=== PATIENT | female | born 1950 | race African-American/Black ===

== ENCOUNTER 2016-07-04 14:32 | Observation (INO) | payer MEDICARE, OTHER ==
--- NOTE | 2016-07-04 14:38 | ER Document Report ---
ED Medical Screen (RME) - General Stated Complaint: ABDOMINAL PAIN Notes: 65 yo female with hx/o distal esophogeal cancer, COPD, HTN, GERD, Cirrhosis c/o acute onset upper abdominal pain x several hours. pain started after chemo today. + vomiting. no fever TRAVEL OUTSIDE OF THE [place] IN LAST 30 DAYS: No - Related Data Allergies/Adverse Reactions: hydrocodone Allergy (Severe, Verified 04/10/16 11:44) Pruritis oxycodone Allergy (Intermediate, Verified 04/10/16 11:44) Hallucinations codeine [Codeine] Allergy (Unknown, Verified 09/08/12 16:17) Pruritis Past Medical History - Past Medical History Cardiac Medical History: Reports: Hx Congestive Heart Failure - chronic diastolic with moderate mr and Pht 5y ago, Hx Hypertension Denies: Hx Coronary Artery Disease, Hx Heart Attack Pulmonary Medical History: Reports: Hx Bronchitis, Hx COPD, Hx Intubation - 2010 respiratory arrest. November fev1=50%. Cant afford spiriva, Hx Respiratory Failure Denies: Hx Asthma, Hx Pneumonia, Hx Tuberculosis Neurological Medical History: Denies: Hx Cerebrovascular Accident, Hx Seizures GI Medical History: Reports: Hx Cirrhosis, Hx Gastroesophageal Reflux Disease Musculoskeltal Medical History: Denies Hx Arthritis Past Surgical History: Reports: Hx Cholecystectomy, Hx Herniorrhaphy, Hx Hysterectomy. Denies: Hx Pacemaker - Immunizations Hx Diphtheria, Pertussis, Tetanus Vaccination: Yes
[2016-07-04] MEDS ORDERED: ONDANSETRON 4 MG TAB.RAPDIS PO ONE (14:44)
[2016-07-04 15:07] LABS: ABSOLUTE LYMPHOCYTES (AUTO) 0.2 10^3/uL (0.5-4.7); ABSOLUTE MONOCYTES (AUTO) 0.1 10^3/uL (0.1-1.4); ABSOLUTE NEUT (AUTO) 2.9 10^3/uL (1.7-8.2); BASOPHILS % (AUTO) 0.6 % (0-2); HEMATOCRIT 32.9 % (36.0-47.0); HEMOGLOBIN 11.4 g/dL (12.0-15.5); HGB HCT DIFFERENCE 1.3; LYMPHOCYTES % (AUTO) 6.6 % (13-45); MEAN CORPUSCULAR HEMOGLOBIN 34.1 pg (27.0-33.4); MEAN CORPUSCULAR HGB CONC 34.7 g/dL (32.0-36.0); MEAN CORPUSCULAR VOLUME 98 fl (80-97); MONOCYTES % (AUTO) 1.6 % (3-13); RED BLOOD COUNT 3.34 10^6/uL (3.72-5.28); RED CELL DISTRIBUTION WIDTH 20.7 % (11.5-14.0); SEGMENTED NEUTROPHILS % (AUTO) 91.2 % (42-78); WHITE BLOOD COUNT 3.2 10^3/uL (4.0-10.5)
[2016-07-04 15:24] LABS: ALANINE AMINOTRANSFERASE 27 U/L (9-52); ALBUMIN 4.2 g/dL (3.5-5.0); ALKALINE PHOSPHATASE 122 U/L (38-126); ANION GAP 14 (5-19); ASPARTATE AMINO TRANSFERASE 27 U/L (14-36); BILIRUBIN,TOTAL 0.8 mg/dL (0.2-1.3); BLOOD UREA NITROGEN 15 mg/dL (7-20); CALCIUM 10.1 mg/dL (8.4-10.2); CARBON DIOXIDE 21 mmol/L (22-30); CHLORIDE 106 mmol/L (98-107); CREATININE RESULT 0.71 mg/dL (0.52-1.25); GLUCOSE 187 mg/dL (75-110); LIPASE 90.7 U/L (23-300); POTASSIUM 3.3 mmol/L (3.6-5.0); SODIUM 140.5 mmol/L (137-145); TOTAL PROTEIN 7.4 g/dL (6.3-8.2)
[2016-07-04] MEDS ORDERED: HYDROMORPHONE HCL INJ/PF 2 MG/ML AMPULE IV ONE ×3 (15:50→21:24)
[2016-07-04] MEDS ORDERED: FENTANYL CITRATE INJ/PF 100 MCG/2 ML AMPUL IV ONE ×2 (15:51→18:33)
--- NOTE | 2016-07-04 15:57 | ER Document Report ---
ED GI/ - General Chief Complaint: Abdominal Pain Stated Complaint: ABDOMINAL PAIN Notes: This is a 65-year-old female history of esophageal cancer and cirrhosis who presents complaining of acute abdominal pain which began after receiving chemotherapy today (Taxol and Carboplatan). Last radiation several weeks ago. She complains of severe diffuse abdominal pain associated with nausea and gagging/spitting. No bilious emesis. She did not have a bowel movement today. She denies any dysuria. No fever. She has not had pain like this following chemotherapy in the past. TRAVEL OUTSIDE OF THE [place] IN LAST 30 DAYS: No - Related Data Allergies/Adverse Reactions: hydrocodone Allergy (Severe, Verified 07/04/16 14:40) Pruritis oxycodone Allergy (Intermediate, Verified 07/04/16 14:40) Hallucinations codeine [Codeine] Allergy (Unknown, Verified 07/04/16 14:40) Pruritis Past Medical History - General Information source: Patient, Relative - Social History Smoking Status: Former Smoker Frequency of alcohol use: former Drug Abuse: None Lives with: Spouse/Significant other Family History: Malignancy - prostate brother Patient has suicidal ideation: No Patient has homicidal ideation: No - Past Medical History Cardiac Medical History: Reports: Hx Congestive Heart Failure - chronic diastolic with moderate mr and Pht 5y ago, Hx Hypertension Denies: Hx Coronary Artery Disease, Hx Heart Attack Pulmonary Medical History: Reports: Hx Bronchitis, Hx COPD, Hx Intubation - 2010 respiratory arrest. November fev1=50%. Cant afford spiriva, Hx Respiratory Failure Denies: Hx Asthma, Hx Pneumonia, Hx Tuberculosis Neurological Medical History: Denies: Hx Cerebrovascular Accident, Hx Seizures Renal/ Medical History: Denies: Hx Peritoneal Dialysis GI Medical History: Reports: Hx Cirrhosis, Hx Gastroesophageal Reflux Disease Musculoskeltal Medical History: Denies Hx Arthritis Past Surgical History: Reports: Hx Cholecystectomy, Hx Herniorrhaphy, Hx Hysterectomy. Denies: Hx Pacemaker - Immunizations Hx Diphtheria, Pertussis, Tetanus Vaccination: Yes Hx Pneumococcal Vaccination: 05/20/12 Review of Systems - Review of Systems Constitutional: denies: Fever EENT: Difficulty swallowing Cardiovascular: denies: Syncope Respiratory: denies: Short of breath Gastrointestinal: Abdominal pain, Vomiting Genitourinary: denies: Burning Musculoskeletal: denies: Leg swelling Skin: denies: Rash Neurological/Psychological: denies: Numbness, Tingling Physical Exam - Vital signs Vitals: Temp Pulse Resp BP Pulse Ox 97.3 F 90 22 H 141/85 H 100 07/04/16 14:39 07/04/16 14:39 07/04/16 14:39 07/04/16 14:39 07/04/16 14:39 - General General appearance: Alert In distress: Moderate Notes: writhing and hyperventilating - HEENT Head: Normocephalic Pupils: Pinpoint Mouth/Lips: Normal Pharynx: Normal Neck: Normal - Respiratory Respiratory status: Tachypnea Breath sounds: Normal - Cardiovascular Rhythm: Regular - Abdominal Inspection: Normal, Other - J-tube in place Distension: Other - mild distrention Tenderness: Other - mild diffuse tenderness, no peritoneal signs Organomegaly: No organomegaly - Back Back: Normal - Extremities General upper extremity: Normal inspection General lower extremity: Normal inspection - Neurological Orientation: AAOx4 Motor strength normal: LUE, RUE, LLE, RLE - Psychological Associated symptoms: Anxious - Skin Skin Temperature: Warm Skin Moisture: Dry Skin Color: Normal Course - Re-evaluation Re-evalutation: 07/04/16 21:[address] Norton who will follow along in consult. He suggests that we put J- tube to gravity drain and that pt may benefit from a higher level of care if surgery becomes required. He cautions against passing a NG tube unless radiograpically guided because of tumor, recent radiation. 07/04/16 21:[address] Mclean who states pt's cancer is contained and she initially refused surgery in hopes of a cure from chemo and radiation. She had Carboplatan and Taxol today which she has received several times before and should not have any bowel toxicity, etc. 07/04/16 21:[address] Yancey who will admit pt. Requests surgical consult. 07/04/16 21:[address] Norton who will provide pt. Pt to be admitted to medical floor by Cristofer. - Vital Signs Vital signs: Temp Pulse Resp BP Pulse Ox 97.5 F 98 14 124/70 99 07/04/16 20:30 07/04/16 20:30 07/04/16 20:30 07/04/16 20:30 07/04/16 20:30 - Laboratory Result Diagrams: 07/04/16 14:45 07/04/16 14:45 Laboratory results interpreted by me: 07/04/16 07/04/16 07/04/16 14:45 14:45 16:45 WBC 3.2 L RBC 3.34 L Hgb 11.4 L Hct 32.9 L MCV 98 H MCH 34.1 H RDW 20.7 H Plt Count 130 L Seg Neutrophils % 91.2 H Lymphocytes % 6.6 L Monocytes % 1.6 L Absolute Lymphocytes 0.2 L Potassium 3.3 L Carbon Dioxide 21 L Glucose 187 H Urine Glucose (UA) 150 H Urine Ketones TRACE H Urine Ascorbic Acid 20 H Discharge - Discharge Clinical Impression: Small bowel obstruction Esophageal cancer Qualifiers: Malignant neoplasm of esophagus location: unspecified location Qualified Code(s ): C15.9 - Malignant neoplasm of esophagus, unspecified Condition: Stable Disposition: ADMITTED INPATIENT Admitting Provider: Cristofer Referrals: OSEAS YANCEY MD [Primary Care Provider] - Follow up as needed
[2016-07-04 16:56] LABS: APPEARANCE,URINE CLEAR; BILIRUBIN,URINE NEGATIVE (NEGATIVE); GLUCOSE, URINE 150 mg/dL (NEGATIVE); KETONES,URINE TRACE mg/dL (NEGATIVE); LEUKOCYTE ESTERASE,URINE NEGATIVE (NEGATIVE); NITRITE,URINE NEGATIVE (NEGATIVE); PROTEIN,URINE NEGATIVE (NEGATIVE); URINE SPECIFIC GRAVITY 1.013; UROBILINOGEN,URINE NEGATIVE mg/dL (<2.0)
[2016-07-04] MEDS ORDERED: DIPHENHYDRAMINE HCL 50 MG/ML VIAL IV ONE (19:16)
[2016-07-05] MEDS: POTASSI CL 20 MEQ/1/2NS 1L 1000 ML IV PRN ×2 (02:23→22:14)
[2016-07-05] MEDS ORDERED: HYDROMORPHONE HCL INJ/PF 2 MG/ML AMPULE ONE (02:38)
[2016-07-05] MEDS ORDERED: HYDROMORPHONE HCL INJ/PF 2 MG/ML AMPULE IV PRN (03:54)
[2016-07-05] MEDS ORDERED: POTASSI CL 20 MEQ/1/2NS 1L 1000 ML IV PRN (03:55)
[2016-07-05] MEDS ORDERED: ENOXAPARIN SODIUM INJ 40 MG/0.4 ML DISP.SYRIN SUBCUT SCH (08:00)
--- NOTE | 2016-07-05 08:24 | PDOC H&P ---
History of Present Illness Admission Date/PCP: 07/05/16 05:05 OSEAS YANCEY MD Patient complains of: 11am L periumbilical pain & vomiting twice History of Present Illness: RUDY OGNZALES is a 65 year old female December ca esophagus. Just chemo radiation. Pain started at chemo:[place] & taxol. J tube to gravity. Early this am big stool. Pain gone. Past Medical History Cardiac Medical History: Reports: Congestive Heart Failure - chronic diastolic with moderate mr and Pht 5y ago, Hypertension Denies: Coronary Artery Disease, Myocardial Infarction Pulmonary Medical History: Reports: Bronchitis, Chronic Obstructive Pulmonary Disease (COPD), Intubation - 2010 respiratory arrest. November fev1=50%. Cant afford spiriva, Respiratory Failure Denies: Asthma, Pneumonia, Tuberculosis EENT Medical History: Reports: None Neurological Medical History: Reports: None Denies: Seizures Endocrine Medical History: Reports: None Renal/ Medical History: Reports: None GI Medical History: Reports: Cirrhosis, Gastroesophageal Reflux Disease, Hepatitis - alcoholic, Peptic Ulcer Disease Musculoskeltal Medical History: Denies: Arthritis Psychiatric Medical History: Reports: Alcohol Dependency Traumatic Medical History: Reports: None Hematology: Reports: Anemia Infectious Medical History: Reports: None Past Surgical History Past Surgical History: Reports: Cholecystectomy, Herniorrhaphy, Hysterectomy, Other - jejunostomy Denies: Pacemaker Social History Information Source: Dr. Pierre Lives with: Spouse/Significant other Smoking Status: Current Some Day Smoker Cigarettes Packs Per Day: 1 Number of Years Smokin Last Time Smoked: 06/28/16 Frequency of Alcohol Use: None Hx Recreational Drug Use: No Drugs: None Hx Prescription Drug Abuse: No - Advance Directive Resuscitation Status: Full Code Family History Family History: Malignancy - prostate brother Parental Family History Reviewed: Yes Children Family History Reviewed: Yes Sibling(s) Family History Reviewed.: Yes Medication/Allergy Home Medications: Lisinopril [Prinivil 40 mg Tablet] 1 tab PO DAILY 05/19/12 Omeprazole [Prilosec 20 mg Capsule] 1 tab PO DAILY 05/19/12 Fentanyl 12 mcg TD RTQ72 05/10/16 Allergies/Adverse Reactions: hydrocodone Allergy (Severe, Verified 07/04/16 14:40) Pruritis oxycodone Allergy (Intermediate, Verified 07/04/16 14:40) Hallucinations codeine [Codeine] Allergy (Unknown, Verified 07/04/16 14:40) Pruritis Review of Systems Constitutional: ABSENT: fever(s), headache(s), weight loss Nose, Mouth, and Throat: ABSENT: sore throat Cardiovascular: ABSENT: chest pain, dyspnea on exertion, orthropnea Respiratory: PRESENT: cough Gastrointestinal: PRESENT: abdominal pain, vomiting. ABSENT: constipation, diarrhea, hematochezia Genitourinary: ABSENT: dysuria, hematuria Musculoskeletal: PRESENT: back pain - radated from abdomen Physical Exam Vital Signs: Temp Pulse Resp BP Pulse Ox 98.2 F 115 H 16 121/76 99 07/05/16 00:13 07/05/16 00:13 07/05/16 00:13 07/05/16 00:13 07/05/16 00:13 Intake & Output 07/04/16 07/05/16 07/06/16 07:59 07:59 07:59 Weight 92 lb 5.979 oz General appearance: PRESENT: no acute distress Mouth exam: PRESENT: dry mucosa, neck supple Neck exam: ABSENT: lymphadenopathy, tenderness, thyromegaly, tracheal deviation Respiratory exam: PRESENT: clear to auscultation brandee Cardiovascular exam: ABSENT: diastolic murmur, irregular rhythm, systolic murmur GI/Abdominal exam: ABSENT: mass, organolmegaly, tenderness Extremities exam: ABSENT: pedal edema Neurological exam: PRESENT: oriented to situation Psychiatric exam: PRESENT: appropriate affect Results Laboratory Results: Abnormal - 24 hr 07/04/16 07/04/16 07/04/16 14:45 14:45 16:45 WBC 3.2 L RBC 3.34 L Hgb 11.4 L Hct 32.9 L MCV 98 H MCH 34.1 H RDW 20.7 H Plt Count 130 L Seg Neutrophils % 91.2 H Lymphocytes % 6.6 L Monocytes % 1.6 L Absolute Lymphocytes 0.2 L Potassium 3.3 L Carbon Dioxide 21 L Glucose 187 H Lactic Acid Urine Glucose (UA) 150 H Urine Ketones TRACE H Urine Ascorbic Acid 20 H 07/04/16 07/05/16 22:25 03:04 WBC RBC Hgb Hct MCV MCH RDW Plt Count Seg Neutrophils % Lymphocytes % Monocytes % Absolute Lymphocytes Potassium Carbon Dioxide Glucose Lactic Acid 4.2 H 2.2 H Urine Glucose (UA) Urine Ketones Urine Ascorbic Acid Impressions: Acute Abdomen Series 07/04/16 16:59 IMPRESSION: NO RADIOGRAPHIC EVIDENCE FOR ACUTE ABDOMINAL DISEASE. Abdomen/Pelvis CT 07/04/16 19:16 IMPRESSION: 1. MODERATELY DILATED PROXIMAL SMALL BOWEL, CONCERNING FOR MECHANICAL OBSTRUCTION. A DISCRETE TRANSITION POINT IS NOT VISUALIZED. A PERCUTANEOUS FEEDING TUBE IS PRESENT. 2. MILDLY NODULAR CONTOUR OF THE LIVER. THE PATIENT REPORTEDLY HAS A HISTORY OF CIRRHOSIS. THERE IS MODERATE FREE FLUID IN THE UPPER ABDOMEN, POSSIBLY RELATED TO THE PATIENT'S CIRRHOSIS. 3. NO OTHER SIGNIFICANT OR ACUTE PROCESS IN THE ABDOMEN OR PELVIS. Assessment & Plan - Diagnosis (1) Small bowel obstruction Is this a current diagnosis for this admission?: YesPlan: seems to have resolved. Advance diet
[2016-07-05] MEDS ORDERED: ACETAMINOPHEN 325 MG TABLET PO PRN (09:46)
--- NOTE | 2016-07-05 10:08 | PDOC CONSULTATION ---
History of Present Illness Admission Date/PCP: 07/05/16 05:05 OSEAS YANCEY MD Patient complains of: Abdominal pain and nausea vomiting History of Present Illness: 66-year-old female with history of esophageal cancer currently on the neoadjuvant the chemotherapy. Presented to the hospital with diffuse abdominal pain with constipation and nausea and vomiting. Since admission her symptoms have completely resolved she is having bowel movements and she tolerated a solid diet this morning without any problems. Past Medical History Cardiac Medical History: Reports: Congestive Heart Failure - chronic diastolic with moderate mr and Pht 5y ago, Hypertension Denies: Coronary Artery Disease, Myocardial Infarction Pulmonary Medical History: Reports: Bronchitis, Chronic Obstructive Pulmonary Disease (COPD), Intubation - 2010 respiratory arrest. November fev1=50%. Cant afford spiriva, Respiratory Failure Denies: Asthma, Pneumonia, Tuberculosis EENT Medical History: Reports: None Neurological Medical History: Reports: None Denies: Seizures Endocrine Medical History: Reports: None Renal/ Medical History: Reports: None GI Medical History: Reports: Cirrhosis, Gastroesophageal Reflux Disease, Hepatitis - alcoholic, Peptic Ulcer Disease Musculoskeltal Medical History: Denies: Arthritis Psychiatric Medical History: Reports: Alcohol Dependency Traumatic Medical History: Reports: None Hematology: Reports: Anemia Infectious Medical History: Reports: None Past Surgical History Past Surgical History: Reports: Cholecystectomy, Herniorrhaphy, Hysterectomy, Other - jejunostomy Denies: Pacemaker Social History Lives with: Spouse/Significant other Smoking Status: Current Some Day Smoker Cigarettes Packs Per Day: 1 Number of Years Smokin Last Time Smoked: 06/28/16 Frequency of Alcohol Use: None Hx Recreational Drug Use: No Drugs: None Hx Prescription Drug Abuse: No - Advance Directive Resuscitation Status: Full Code Family History Family History: Malignancy - prostate brother Parental Family History Reviewed: No Children Family History Reviewed: No Sibling(s) Family History Reviewed.: No Medication/Allergy Home Medications: Lisinopril [Prinivil 40 mg Tablet] 1 tab PO DAILY 05/19/12 Omeprazole [Prilosec 20 mg Capsule] 1 tab PO DAILY 05/19/12 Fentanyl 12 mcg TD RTQ72 05/10/16 Allergies/Adverse Reactions: hydrocodone Allergy (Severe, Verified 07/04/16 14:40) Pruritis oxycodone Allergy (Intermediate, Verified 07/04/16 14:40) Hallucinations hydromorphone [From Dilaudid] Allergy (Mild, Verified 07/05/16 09:03) Throws up codeine [Codeine] Allergy (Unknown, Verified 07/04/16 14:40) Pruritis Physical Exam Vital Signs: Temp Pulse Resp BP Pulse Ox 98.4 F 97 18 106/62 91 L 07/05/16 08:29 07/05/16 08:29 07/05/16 08:29 07/05/16 08:29 07/05/16 08:29 Intake & Output 07/04/16 07/05/16 07/06/16 06:59 06:59 06:59 Weight 41.9 kg General appearance: PRESENT: no acute distress Respiratory exam: PRESENT: clear to auscultation brandee Cardiovascular exam: PRESENT: RRR GI/Abdominal exam: PRESENT: other - Soft, nondistended, nontender to palpation. Feeding tube in place site clean. Results Impressions: Acute Abdomen Series 07/04/16 16:59 IMPRESSION: NO RADIOGRAPHIC EVIDENCE FOR ACUTE ABDOMINAL DISEASE. Abdomen/Pelvis CT 07/04/16 19:16 IMPRESSION: 1. MODERATELY DILATED PROXIMAL SMALL BOWEL, CONCERNING FOR MECHANICAL OBSTRUCTION. A DISCRETE TRANSITION POINT IS NOT VISUALIZED. A PERCUTANEOUS FEEDING TUBE IS PRESENT. 2. MILDLY NODULAR CONTOUR OF THE LIVER. THE PATIENT REPORTEDLY HAS A HISTORY OF CIRRHOSIS. THERE IS MODERATE FREE FLUID IN THE UPPER ABDOMEN, POSSIBLY RELATED TO THE PATIENT'S CIRRHOSIS. 3. NO OTHER SIGNIFICANT OR ACUTE PROCESS IN THE ABDOMEN OR PELVIS. Assessment & Plan - Diagnosis (1) Small bowel obstruction Is this a current diagnosis for this admission?: YesPlan: Resolved. I see no reason for surgical intervention. May discharge the patient home tomorrow if she continues to do well. Please call us for any problems. Will sign off.
[2016-07-05] MEDS: ENOXAPARIN SODIUM INJ 30 MG/0.3 ML DISP.SYRIN SUBCUT SCH (10:37)
[2016-07-05] MEDS: FAMOTIDINE INJ/PF 20 MG/2 ML SDV IV SCH ×2 (10:37→22:17)
[2016-07-06 07:11] LABS: ANION GAP 6 (5-19); BLOOD UREA NITROGEN 15 mg/dL (7-20); CALCIUM 8.3 mg/dL (8.4-10.2); CARBON DIOXIDE 24 mmol/L (22-30); CHLORIDE 109 mmol/L (98-107); CREATININE RESULT 0.61 mg/dL (0.52-1.25); GLUCOSE 84 mg/dL (75-110); POTASSIUM 4.3 mmol/L (3.6-5.0); SODIUM 138.9 mmol/L (137-145)
--- NOTE | 2016-07-06 08:56 | PDOC DISCHARGE SUMMARY ---
General - Admit/Disc Date/PCP Admission Date/Primary Care Provider: 07/05/16 05:05 OSEAS YANCEY MD Discharge Date: 07/06/16 - Discharge Diagnosis (1) Small bowel obstruction Is this a current diagnosis for this admission?: YesSummary: pain and vomiting stopped when had big stool yesterday. Eating - Additional Information Resuscitation Status: Full Code Discharge Diet: As Tolerated Discharge Activity: Activity As Tolerated Home Medications: Omeprazole [Prilosec 20 mg Capsule] 20 mg PO DAILY 05/19/12 Fentanyl 12 mcg TD RTQ72 05/10/16 History of Present Illness History of Present Illness: RUDY GONZALES is a 65 year old female December ca esophagus. Just chemo radiation. Pain started at chemo:[place] & taxol. J tube to gravity. Early this am big stool. Pain gone. Hospital Course Hospital Course: see above Physical Exam Vital Signs: Temp Pulse Resp BP Pulse Ox 97.8 F 88 17 110/66 99 07/06/16 07:28 07/06/16 07:28 07/06/16 07:28 07/06/16 07:28 07/06/16 07:28 Intake & Output 07/05/16 07/06/16 07/07/16 07:59 07:59 07:59 Intake Total 1010 Output Total 700 Balance 310 Weight 92 lb 5.979 oz 99 lb 13.91 oz General appearance: PRESENT: no acute distress Respiratory exam: PRESENT: clear to auscultation brandee Cardiovascular exam: ABSENT: diastolic murmur, irregular rhythm, systolic murmur GI/Abdominal exam: ABSENT: mass, organolmegaly, tenderness Extremities exam: ABSENT: pedal edema Psychiatric exam: PRESENT: anxious - wants J tube out but surgeon referred her to his office Results Laboratory Results: 07/06/16 06:01 07/06/16 06:01 Sodium 138.9 Potassium 4.3 Chloride 109 H Carbon Dioxide 24 Anion Gap 6 BUN 15 Creatinine 0.61 Est GFR ( Amer) > 60 Est GFR (Non-Af Amer) > 60 Glucose 84 Calcium 8.3 L Labs- Last Values WBC 3.2 10^3/uL (4.0-10.5) L 07/04/16 14:45 RBC 3.34 10^6/uL (3.72-5.28) L 07/04/16 14:45 Hgb 11.4 g/dL (12.0-15.5) L 07/04/16 14:45 Hct 32.9 % (36.0-47.0) L 07/04/16 14:45 MCV 98 fl (80-97) H 07/04/16 14:45 MCH 34.1 pg (27.0-33.4) H 07/04/16 14:45 MCHC 34.7 g/dL (32.0-36.0) 07/04/16 14:45 RDW 20.7 % (11.5-14.0) H 07/04/16 14:45 Plt Count 130 10^3/uL (150-450) L 07/04/16 14:45 Seg Neutrophils % 91.2 % (42-78) H 07/04/16 14:45 Lymphocytes % 6.6 % (13-45) L 07/04/16 14:45 Monocytes % 1.6 % (3-13) L 07/04/16 14:45 Eosinophils % 0.0 % (0-6) 07/04/16 14:45 Basophils % 0.6 % (0-2) 07/04/16 14:45 Absolute Neutrophils 2.9 10^3/uL (1.7-8.2) 07/04/16 14:45 Absolute Lymphocytes 0.2 10^3/uL (0.5-4.7) L 07/04/16 14:45 Absolute Monocytes 0.1 10^3/uL (0.1-1.4) 07/04/16 14:45 Absolute Eosinophils 0.0 10^3/uL (0.0-0.6) 07/04/16 14:45 Absolute Basophils 0.0 10^3/uL (0.0-0.2) 07/04/16 14:45 Sodium 138.9 mmol/L (137-145) 07/06/16 06:01 Potassium 4.3 mmol/L (3.6-5.0) 07/06/16 06:01 Chloride 109 mmol/L (98-107) H 07/06/16 06:01 Carbon Dioxide 24 mmol/L (22-30) 07/06/16 06:01 Anion Gap 6 (5-19) 07/06/16 06:01 BUN 15 mg/dL (7-20) 07/06/16 06:01 Creatinine 0.61 mg/dL (0.52-1.25) 07/06/16 06:01 Est GFR ( Amer) > 60 (>60) 07/06/16 06:01 Est GFR (Non-Af Amer) > 60 (>60) 07/06/16 06:01 Glucose 84 mg/dL (75-110) 07/06/16 06:01 Lactic Acid 2.2 mmol/L (0.7-2.1) H 07/05/16 03:04 Calcium 8.3 mg/dL (8.4-10.2) L 07/06/16 06:01 Total Bilirubin 0.8 mg/dL (0.2-1.3) 07/04/16 14:45 Direct Bilirubin 0.0 mg/dL (0.0-0.3) 07/04/16 14:45 AST 27 U/L (14-36) 07/04/16 14:45 ALT 27 U/L (9-52) 07/04/16 14:45 Alkaline Phosphatase 122 U/L (38-126) 07/04/16 14:45 Total Protein 7.4 g/dL (6.3-8.2) 07/04/16 14:45 Albumin 4.2 g/dL (3.5-5.0) 07/04/16 14:45 Lipase 90.7 U/L (23-300) 07/04/16 14:45 Urine Color YELLOW 07/04/16 16:45 Urine Appearance CLEAR 07/04/16 16:45 Urine pH 7.0 (5.0-9.0) 07/04/16 16:45 Ur Specific Kevin 1.013 07/04/16 16:45 Urine Protein NEGATIVE mg/dL (NEGATIVE) 07/04/16 16:45 Urine Glucose (UA) 150 mg/dL (NEGATIVE) H 07/04/16 16:45 Urine Ketones TRACE mg/dL (NEGATIVE) H 07/04/16 16:45 Urine Blood NEGATIVE (NEGATIVE) 07/04/16 16:45 Urine Nitrite NEGATIVE (NEGATIVE) 07/04/16 16:45 Urine Bilirubin NEGATIVE (NEGATIVE) 07/04/16 16:45 Urine Urobilinogen NEGATIVE mg/dL (<2.0) 07/04/16 16:45 Ur Leukocyte Esterase NEGATIVE (NEGATIVE) 07/04/16 16:45 Urine RBC (Auto) 0 /HPF 07/04/16 16:45 Urine Ascorbic Acid 20 (NEGATIVE) H 07/04/16 16:45 Impressions: Acute Abdomen Series 07/04/16 16:59 IMPRESSION: NO RADIOGRAPHIC EVIDENCE FOR ACUTE ABDOMINAL DISEASE. Abdomen/Pelvis CT 07/04/16 19:16 IMPRESSION: 1. MODERATELY DILATED PROXIMAL SMALL BOWEL, CONCERNING FOR MECHANICAL OBSTRUCTION. A DISCRETE TRANSITION POINT IS NOT VISUALIZED. A PERCUTANEOUS FEEDING TUBE IS PRESENT. 2. MILDLY NODULAR CONTOUR OF THE LIVER. THE PATIENT REPORTEDLY HAS A HISTORY OF CIRRHOSIS. THERE IS MODERATE FREE FLUID IN THE UPPER ABDOMEN, POSSIBLY RELATED TO THE PATIENT'S CIRRHOSIS. 3. NO OTHER SIGNIFICANT OR ACUTE PROCESS IN THE ABDOMEN OR PELVIS. Qualifiers PATEINT BEING DISCHARGED WITH ANY OF THE FOLLOWING DIAGNOSIS?: No Plan Discharge Plan: home. 1w ov
[2016-07-06 09:49] VITALS: BP 108/62
[2016-07-06] MEDS: ENOXAPARIN SODIUM INJ 30 MG/0.3 ML DISP.SYRIN SUBCUT SCH (10:06)
[2016-07-06] MEDS: FAMOTIDINE INJ/PF 20 MG/2 ML SDV IV SCH (10:06)
== END 2016-07-06 10:53 | disposition home or self-care (01) ==
LOC: ER 14:32 → UNDOADMIN 22:15 → EH 22:15 → 4W 07-05 00:11 → EH 07-05 05:05 → INTOOBSV 07-05 05:05
PROVIDERS: ADMIT Family Medicine; ATTEND Family Medicine
DX: K56.60 Unspecified intestinal obstruction (principal); C15.9 Malignant neoplasm of esophagus, unspecified; Z79.899 Other long term (current) drug therapy; I50.32 Chronic diastolic (congestive) heart failure; I10 Essential (primary) hypertension; J44.9 Chronic obstructive pulmonary disease, unspecified; K70.30 Alcoholic cirrhosis of liver without ascites; K21.9 Gastro-esophageal reflux disease without esophagitis; K70.10 Alcoholic hepatitis without ascites; K27.9 Peptic ulcer, site unspecified, unspecified as acute or chronic, without hemorrhage or perforation; F17.210 Nicotine dependence, cigarettes, uncomplicated
CPT/HCPCS: 96376; 99285; 96374; 96375; 36415 ×2; 83690; 85025; 80048; 80053; 81001; 83605 ×2; 74022; 74176; A9270 ×2; J1200; J3480; J3010; J1170 ×2; J1650; S0028; S0119

== ENCOUNTER → 2016-08-13 | Outpatient (CLI) | payer MEDICARE, OTHER ==
[~2016-08-13] MED LIST: ALBUTEROL SULFATE 0.083% NEB 2.5 MG/3 ML AMPUL NEB ONE
--- NOTE | 2016-08-15 10:55 | Pulmonary Function Test ---
Pulmonary Function Test Date of Procedure:: 08/13/16 INDICATION:: Dyspnea Referring Provider: Dr.M. Gary Shipping And Receiving Coordinator: Josephine Willoughby [employer] - Report Spirometry: FVC 2.16 L 85% postbronchodilator therapy 2.14 L 84% FEV1 1.07 L 53% postbronchodilator therapy 1.04 L 51% FEV1/FVC % 50 postbronchodilator therapy 49 predicted 83 Lung Volume: Total lung capacity 3.33 L 79% Vital capacity 2.16 L 85% IC 1.11 L FRC 2.21 80% ERV 0.50 Residual volume 1.16 L 70% RV/TLC percent 35 predicted 40 Diffusion Capactity: Diffusion capacity 6.1 44% DLCO/VA 2.2 7 61% Impression: Severe obstructive ventilatory defect with insignificant response to bronchodilator therapy. This does not preclude a clinical trial of bronchodilator therapy. Borderline restrictive ventilatory defect no evidence of hyperinflation or air trapping. Severe decrease in diffusion capacity.
== END ==
LOC: RT 07:09
PROVIDERS: ATTEND Thoracic Surgery (Cardiothoracic Vascular Surgery)
DX: C15.9 Malignant neoplasm of esophagus, unspecified (principal); J44.9 Chronic obstructive pulmonary disease, unspecified
CPT/HCPCS: 74220; 94729; 94727; 94060; A9270

== ENCOUNTER → 2017-02-13 | Outpatient (CLI) | payer MEDICARE, OTHER ==
--- NOTE | 2017-02-13 14:16 | RADIOLOGY REPORT (SQ) ---
EXAM DESCRIPTION: CT CHEST WITH; CT ABDOMEN IV CONTRAST ONLY COMPLETED DATE/TIME: 02/13/2017 9:54 am; 02/13/2017 9:55 am REASON FOR STUDY: MAL AMINA OF ESOPHAGUS, UNSPECIFIED; ABDOMINAL PAIN C15.9 MALIGNANT NEOPLASM OF ESO PHAGUS, UNSPECIFIED COMPARISON: Barium swallow 08/13/2016 CT abdomen pelvis 07/04/2016 CT angio chest 06/16/2011 CONTRAST TYPE AND DOSE: contrast/concentration: Isovue 370.00 mg/ml; Total Contrast Delivered: 49.0 ml; Total Saline Delivered: 65.0 ml RENAL FUNCTION: Creatinine 0.9 TECHNIQUE: CT scan of the chest performed using helical scanning technique with dynamic intravenous contrast injection. Images reviewed with lung, soft tissue and bone windows. Reconstructed coronal a nd sagittal MPR images reviewed. All images stored on PACS. CT scan of the abdomen performed with intravenous and without oral contrastusing helical scanning veronique hnique with dynamic intravenous contrast injection. Images reviewed with lung, soft tissue and bone windows. Reconstructed coronal and sagittal MPR images reviewed. Delayed images for evaluation of t he urinary system also acquired and evaluated. All images stored on PACS. All CT scanners at this facility use dose modulation, iterative reconstruction, and/or weight based d osing when appropriate to reduce radiation dose to as low as reasonably achievable (ALARA). [facility]: Dose Right [facility]: CareDose [facility]: Dose Right [facility]: Teradose 4D [facility]: [employer] RADIATION DOSE: Up-to-date CT equipment and radiation dose reduction techniques were employed. CTDIv ol: 4.3 - 4.4 mGy. DLP: 377 mGy-cm. . LIMITATIONS: None. FINDINGS: CHEST: LUNGS AND PLEURA: No acute infiltrates. No pleural effusions. Moderate to marked changes of obstruc tive lung disease, with hyperinflation and hyperlucency. Incidental finding of of right middle lobe pleural-based 5 mm nodule on axial image 74, unchanged from 2011. HILAR AND MEDIASTINAL STRUCTURES: No identified masses or abnormal nodes. HEART AND VASCULAR STRUCTURES: No aneurysm or dissection. No central pulmonary emboli. No pericardi al effusion. HARDWARE: None. THYROID AND OTHER SOFT TISSUES: No masses. No adenopathy. BONES: No significant finding. OTHER: No other significant finding. ABDOMEN AND PELVIS: LIVER: Normal size. No masses. No dilated ducts. 8 mm cyst anterior left lobe liver axial image 19 unchanged from 2011 SPLEEN: Normal size. No focal lesions. PANCREAS: No masses. No significant calcifications. No adjacent inflammation or peripancreatic fluid collections. Pancreatic duct not dilated. GALLBLADDER: Surgically absent ADRENAL GLANDS: No significant masses or asymmetry. RIGHT KIDNEY AND URETER: No solid masses. No significant calcification. No hydronephrosis or hydroure ter. LEFT KIDNEY AND URETER: No solid masses. 8 mm left upper pole renal cortical cysts. No significant calcification. No hydronephrosis or hydroureter. AORTA AND VESSELS: Very heavily calcified abdominal aorta with very heavy arterial vascular calcifica tion at the origins of both renal arteries. Suspect significant bilateral renal artery stenosis no h igh-grade stenosis of the proximal celiac or superior mesenteric artery. RETROPERITONEUM: No retroperitoneal adenopathy, hemorrhage or masses. BOWEL AND PERITONEAL CAVITY: No masses or inflammatory changes. No free fluid or peritoneal masses. There are prominent mesenteric venous collaterals in the right lower quadrant, in the left para aorti c region and splenic hilum, question portal hypertension. APPENDIX: Not in the field of view ABDOMINAL WALL: No masses. No hernias. BONES: No significant or acute findings. OTHER: No other significant finding. IMPRESSION: No CT evidence of metastatic disease given history of esophageal cancer Benign 5 mm nodule right middle lobe pleural surface unchanged since 2011 Obstructive lung disease Portal hypertension with right lower quadrant and left upper quadrant mesenteric venous collaterals NORMAL CT OF THE ABDOMEN AND PELVIS WITH ORAL AND INTRAVENOUS CONTRAST. TECHNICAL DOCUMENTATION: JOB ID: [id number] Quality ID # [id number]: Final reports with documentation of one or more dose reduction techniques (e.g., Au tomated exposure control, adjustment of the mA and/or kV according to patient size, use of iterative reconstruction technique) 2010 [employer]- All Rights Reserved
== END ==
LOC: RAD 08:54
PROVIDERS: ATTEND Internal Medicine Medical Oncology
DX: C15.4 Malignant neoplasm of middle third of esophagus (principal); R10.9 Unspecified abdominal pain
CPT/HCPCS: 71260; 74160; 82565

== ENCOUNTER 2018-04-27 02:43 | Inpatient (IN) | payer MEDICARE ==
[2018-04-27] MEDS ORDERED: IPRATROPIUM/ALBUTEROL 0.5-2.5 MG/3 ML AMPUL NEB ONE (02:54)
[2018-04-27] MEDS ORDERED: METHYLPREDNISOLONE INJ 125 MG/2 ML SDV IV ONE (02:54)
[2018-04-27] MEDS ORDERED: MAGNESIUM SULFATE/D5W 2 GM/200 ML RTUPB IV ONE (02:58)
[2018-04-27] MEDS: ALBUTEROL SULFATE 0.083% NEB 2.5 MG/3 ML AMPUL NEB SCH ×2 (03:05→04:21)
--- NOTE | 2018-04-27 03:08 | ER Document Report ---
ED General - General Chief Complaint: Respiratory Distress Stated Complaint: RESPIRATORY DISTRESS Time Seen by Provider: 04/27/18 02:52 Mode of Arrival: Ambulatory Information source: Patient, Emergency Med Personnel, REPLACED BY [facility] Records Notes: 67-year-old female with congestive heart failure, hypertension, COPD, respiratory failure, esophageal cancer presents with complaints of shortness of breath that started 2 days prior to arrival. Patient denies any increased cough , sputum production, fever, chills. She does admit to body aches. She denies chest pain, nausea, vomiting, diaphoresis, lightheadedness. She did try her nebulizer machine at home without relief. She no longer smokes. She denies any recent hospitalizations. Patient did receive albuterol by EMS prior to arrival. TRAVEL OUTSIDE OF THE [place] IN LAST 30 DAYS: No - HPI Onset: Other Onset/Duration: Gradual, Persistent Quality of pain: Achy - Achy leg pain Associated symptoms: Body/muscle aches, Nonproductive cough, Shortness of breath. denies: Chest pain, Productive cough, Fever, Leg swelling, Nausea, Vomiting Exacerbated by: Denies Relieved by: Denies Similar symptoms previously: Yes Recently seen / treated by doctor: No - Related Data Allergies/Adverse Reactions: hydrocodone Allergy (Severe, Verified 04/27/18 03:02) Pruritis oxycodone Allergy (Intermediate, Verified 04/27/18 03:02) Hallucinations hydromorphone [From Dilaudid] Allergy (Mild, Verified 04/27/18 03:02) Throws up codeine [Codeine] Allergy (Unknown, Verified 04/27/18 03:02) Pruritis Past Medical History - General Information source: Patient - Social History Smoking Status: Former Smoker Chew tobacco use (# tins/day): No Frequency of alcohol use: None Drug Abuse: None Lives with: Spouse/Significant other Family History: Reviewed & Not Pertinent, Malignancy Patient has suicidal ideation: No Patient has homicidal ideation: No - Past Medical History Cardiac Medical History: Reports: Hx Congestive Heart Failure - chronic diastolic with moderate mr and Pht 5y ago, Hx Hypertension Denies: Hx Coronary Artery Disease, Hx Heart Attack Pulmonary Medical History: Reports: Hx Bronchitis, Hx COPD, Hx Intubation - 2010 respiratory arrest. November fev1=50%. Cant afford spiriva, Hx Respiratory Failure Denies: Hx Asthma, Hx Pneumonia, Hx Tuberculosis Neurological Medical History: Denies: Hx Cerebrovascular Accident, Hx Seizures Renal/ Medical History: Denies: Hx Peritoneal Dialysis GI Medical History: Reports: Hx Cirrhosis, Hx Gastroesophageal Reflux Disease, Hx Hepatitis - alcoholic Musculoskeletal Medical History: Denies Hx Arthritis Infectious Medical History: Reports: Hx Hepatitis - alcoholic Past Surgical History: Reports: Hx Cholecystectomy, Hx Herniorrhaphy, Hx Hysterectomy, Other - jejunostomy. Denies: Hx Pacemaker - Immunizations Hx Diphtheria, Pertussis, Tetanus Vaccination: Yes Hx Pneumococcal Vaccination: 05/20/12 Review of Systems - Review of Systems Notes: REVIEW OF SYSTEMS: CONSTITUTIONAL : Denies fever, chills, or sweats. Denies recent illness. Denies weight loss, recent hospitalizations. EENT: Denies visual changes, eye pain. Denies sore throat, oral lesions, difficulty swallowing. CARDIOVASCULAR: Denies chest pain. Denies palpitations. Denies lower extremity edema. RESPIRATORY: + Cough, shortness of breath, wheezing, GASTROINTESTINAL: Denies abdominal pain or distention. Denies nausea, vomiting , or diarrhea. Denies blood in vomitus, stools, or per rectum. Denies black, tarry stools. Denies constipation. GENITOURINARY: Denies difficulty urinating, painful urination, frequency, blood in urine, or vaginal discharge. MUSCULOSKELETAL: Denies back or neck pain or stiffness. Denies joint swelling. SKIN: Denies rash, lesions or sores. HEMATOLOGIC : Denies easy bruising or bleeding. LYMPHATIC: Denies swollen glands. NEUROLOGICAL: Denies confusion or altered mental status. Denies loss of consciousness. Denies dizziness or lightheadedness. Denies headache. Denies weakness or paralysis. Denies problems difficulty with ambulation, slurred speech. Denies sensory loss, numbness, or tingling. Denies seizures. PSYCHIATRIC: Denies anxiety or stress. Denies depression, suicidal ideation, or homicidal ideation. Denies visual or auditory hallucinations. Physical Exam - Vital signs Vitals: Resp 24 H 04/27/18 02:49 - Notes Notes: PHYSICAL EXAMINATION: GENERAL: Well-appearing, well-nourished and in mild distress. HEAD: Atraumatic, normocephalic. EYES: Pupils equal round and reactive to light, extraocular movements intact, conjunctiva are normal. ENT: Nares patent, oropharynx clear without exudates. Moist mucous membranes. NECK: Normal range of motion, supple without lymphadenopathy LUNGS: Diminished breath sounds bilaterally. No wheezing appreciated. Patient is tachypneic, using accessory muscles. Mild respiratory distress HEART: Regular rate and rhythm without murmurs ABDOMEN: Soft, nontender, nondistended abdomen. No guarding, no rebound. No masses appreciated. Female : deferred Musculoskeletal: Normal range of motion, no pitting or edema. No cyanosis. NEUROLOGICAL: Cranial nerves grossly intact. Normal speech, normal gait. Normal sensory, motor exams PSYCH: Normal mood, normal affect. SKIN: Warm, Dry, normal turgor, no rashes or lesions noted. Course - Re-evaluation Re-evalutation: Laboratory 04/27/18 04/27/18 04/27/18 02:49 02:49 02:49 WBC 12.9 H RBC 3.90 Hgb 13.3 Hct 38.7 MCV 99 H MCH 34.2 H MCHC 34.5 RDW 15.1 H Plt Count 161 Seg Neutrophils % 81.1 H Lymphocytes % 10.7 L Monocytes % 7.8 Eosinophils % 0.1 Basophils % 0.3 Absolute Neutrophils 10.5 H Absolute Lymphocytes 1.4 Absolute Monocytes 1.0 Absolute Eosinophils 0.0 Absolute Basophils 0.0 VBG pH VBG pCO2 VBG HCO3 VBG Base Excess Sodium 139.2 Potassium 4.3 Chloride 103 Carbon Dioxide 23 Anion Gap 13 BUN 9 Creatinine 0.79 Est GFR ( Amer) > 60 Est GFR (Non-Af Amer) > 60 Glucose 118 H Calcium 9.6 Troponin I 0.163 NT-Pro-B Natriuret Pep 5530 H Urine Color Urine Appearance Urine pH Ur Specific [place] Urine Protein Urine Glucose (UA) Urine Ketones Urine Blood Urine Nitrite Urine Bilirubin Urine Urobilinogen Ur Leukocyte Esterase Urine WBC (Auto) Urine RBC (Auto) Squamous Epi Cells Auto Urine Ascorbic Acid 04/27/18 04/27/18 04/27/18 02:49 04:50 05:15 WBC RBC Hgb Hct MCV MCH MCHC RDW Plt Count Seg Neutrophils % Lymphocytes % Monocytes % Eosinophils % Basophils % Absolute Neutrophils Absolute Lymphocytes Absolute Monocytes Absolute Eosinophils Absolute Basophils VBG pH 7.39 VBG pCO2 36.9 VBG HCO3 21.8 VBG Base Excess -2.6 Sodium Potassium Chloride Carbon Dioxide Anion Gap BUN Creatinine Est GFR ( Amer) Est GFR (Non-Af Amer) Glucose Calcium Troponin I 0.151 NT-Pro-B Natriuret Pep Urine Color YELLOW Urine Appearance CLEAR Urine pH 5.0 Ur Specific [place] 1.013 Urine Protein NEGATIVE Urine Glucose (UA) NEGATIVE Urine Ketones NEGATIVE Urine Blood SMALL H Urine Nitrite NEGATIVE Urine Bilirubin NEGATIVE Urine Urobilinogen NEGATIVE Ur Leukocyte Esterase LARGE H Urine WBC (Auto) 13 Urine RBC (Auto) 9 Squamous Epi Cells Auto 3 Urine Ascorbic Acid NEGATIVE 04/27/18 04:14 Lab called to inform us that the patient has an elevated troponin. 04/27/18 06:12 Patient's first troponin was 0.163, repeat troponin is 0.151. Patient has no active chest pain, EKG shows no ST elevation. There are no hyper acute T waves. Patient's last echo showed an EF greater than 30%. Creatinine is less than 2. She has not had a CVA in the last weeks. Patient does not meet any medical indication for NSTEMI transfer. Likely mildly elevated troponin is due to demand ischemia due to persistent tachycardia. CTA was obtained and negative for PE it did show small bibasilar effusions. CBC does show a leukocytosis without anemia. CMP shows no electrolyte abnormalities and normal renal function. Urinalysis consistent with urinary tract infection. VBG within normal limits. Lovenox was administered. Patient declining aspirin secondary to ulcers. Patient received breathing treatments, Solu-Medrol, magnesium. She does report improvement of her shortness of breath. She persistently denies chest pain. Patient has been accepted for admission by her primary care physician Dr. [place] 04/27/18 06:19 04/27/18 06:28 - Vital Signs Vital signs: Temp Pulse Resp BP Pulse Ox 98.3 F 111 H 14 105/57 L 100 04/27/18 17:05 04/27/18 17:05 04/27/18 17:05 04/27/18 17:05 04/27/18 17:05 - Laboratory Result Diagrams: 04/27/18 02:49 04/27/18 02:49 Laboratory results interpreted by me: 04/27/18 04/27/18 04/27/18 02:49 02:49 02:49 WBC 12.9 H MCV 99 H MCH 34.2 H RDW 15.1 H Seg Neutrophils % 81.1 H Lymphocytes % 10.7 L Absolute Neutrophils 10.5 H Glucose 118 H NT-Pro-B Natriuret Pep 5530 H Urine Blood Ur Leukocyte Esterase 04/27/18 04:50 WBC MCV MCH RDW Seg Neutrophils % Lymphocytes % Absolute Neutrophils Glucose NT-Pro-B Natriuret Pep Urine Blood SMALL H Ur Leukocyte Esterase LARGE H - Diagnostic Test Radiology reviewed: Image reviewed, Reports reviewed - EKG Interpretation by Me EKG shows normal: Sinus rhythm Rate: Tachycardia Rhythm: NSR [place]/QRS: Left axis deviation When compared to previous EKG there are: No significant change Procedures - Ultrasound/Bedside Ultrasound/Bedside Time completed: 04:14 - Cardiac ultrasound was obtained at the bedside. No evidence of pericardial effusion. Hyperdynamic global function. No evidence of right ventricular right atrial collapse. IVC with appropriate phasicity not plethoric. No D sign, Nunez sign. Images attached to chart Discharge - Discharge Clinical Impression: Elevated troponin, Tachycardia, COPD exacerbation, Bilateral pleural effusion, Elevated brain natriuretic peptide (BNP) level UTI (urinary tract infection) Qualifiers: Urinary tract infection type: site unspecified Hematuria presence: with hematuria Qualified Code(s): N39.0 - Urinary tract infection, site not specified Congestive heart failure Qualifiers: Heart failure type: unspecified Heart failure chronicity: chronic Qualified Code(s): I50.9 - Heart failure, unspecified Leukocytosis Qualifiers: Leukocytosis type: unspecified Qualified Code(s): D72.829 - Elevated white blood cell count, unspecified Condition: Good Disposition: ADMITTED INPATIENT Admitting Provider: [place] Unit Admitted: Telemetry
[2018-04-27 03:28] LABS: ANION GAP 13 (5-19); BLOOD UREA NITROGEN 9 mg/dL (7-20); CALCIUM 9.6 mg/dL (8.4-10.2); CARBON DIOXIDE 23 mmol/L (22-30); CHLORIDE 103 mmol/L (98-107); GLUCOSE 118 mg/dL (75-110); POTASSIUM 4.3 mmol/L (3.6-5.0); SODIUM 139.2 mmol/L (137-145)
--- NOTE | 2018-04-27 03:37 | RADIOLOGY REPORT (SQ) ---
EXAM DESCRIPTION: XR CHEST 1 VIEW COMPLETED DATE/TME: 04/27/2018 02:55 CLINICAL HISTORY: 67 years, Female, SOB COMPARISON: None. NUMBER OF VIEWS: 1 TECHNIQUE: Frontal view the chest LIMITATIONS: None. FINDINGS: Heart size is normal. Osteopenia. Underlying COPD. Small right pleural effusion. Adjacent subsegmental atelectasis. No pneumothorax. Underlying COPD IMPRESSION: Small right pleural effusion. Underlying COPD. Osteopenia 2010 [employer]- All Rights Reserved
[2018-04-27 03:53] LABS: ABSOLUTE LYMPHOCYTES (AUTO) 1.4 10^3/uL (0.5-4.7); ABSOLUTE NEUT (AUTO) 10.5 10^3/uL (1.7-8.2); BASOPHILS % (AUTO) 0.3 % (0-2); EOSINOPHILS % (AUTO) 0.1 % (0-6); HEMATOCRIT 38.7 % (36.0-47.0); HEMOGLOBIN 13.3 g/dL (12.0-15.5); LYMPHOCYTES % (AUTO) 10.7 % (13-45); MEAN CORPUSCULAR HEMOGLOBIN 34.2 pg (27.0-33.4); MEAN CORPUSCULAR HGB CONC 34.5 g/dL (32.0-36.0); MEAN CORPUSCULAR VOLUME 99 fl (80-97); MONOCYTES % (AUTO) 7.8 % (3-13); PLATELET COUNT 161 10^3/uL (150-450); RED CELL DISTRIBUTION WIDTH 15.1 % (11.5-14.0); SEGMENTED NEUTROPHILS % (AUTO) 81.1 % (42-78); TOTAL CELLS COUNTED % (AUTO) 100 %; WHITE BLOOD COUNT 12.9 10^3/uL (4.0-10.5)
[2018-04-27 04:00] LABS: TROPONIN I 0.163 ng/mL
[2018-04-27] MEDS ORDERED: ASPIRIN 81 MG TABLET, CHEWABLE PO ONE (04:02)
[2018-04-27] MEDS ORDERED: FUROSEMIDE INJ/PF 20 MG/2 ML SDV IV ONE (04:03)
[2018-04-27] MEDS ORDERED: ENOXAPARIN SODIUM INJ 60 MG/0.6 ML DISP.SYRIN SUBCUT SCH ×2 (04:15→10:00)
[2018-04-27 04:24] LABS: VENOUS BLOOD BASE EXCESS -2.6 mmol/L; VENOUS BLOOD HCO3 21.8 mmol/L (20-32); VENOUS BLOOD PCO2 36.9 mmHg (35-63); VENOUS BLOOD PH 7.39 (7.30-7.42)
--- NOTE | 2018-04-27 04:51 | RADIOLOGY REPORT (SQ) ---
EXAM DESCRIPTION: CT CHEST ANGIOGRAPHY WITHOUT THEN WITH IV CONTRAST COMPLETED DATE/TME: 04/27/2018 03:44 CLINICAL HISTORY: 67 years, Female, sob, tachy, ho cancer COMPARISON: None. TECHNIQUE: 540 Images stored on PACS. Axial images were obtained with coronal and sagittal MIPS reconstructions All CT scanners at this facility use dose modulation, iterative reconstruction, and/or weight based dosing when appropriate to reduce radiation dose to as low as reasonably achievable (ALARA). [facility]: Dose Right [facility]: CareDose [facility]: Dose Right [facility]: Teradose 4D [facility]: [employer] LIMITATIONS: None. FINDINGS: The mediastinal vasculature enhances normally. There is no intraluminal filling defect to suggest pulmonary embolus. Negative for thoracic aortic aneurysm or dissection. Heart is at the upper limits of normal in size. Small hiatal hernia. Limited evaluation of the upper abdomen demonstrates a subcentimeter hepatic cyst. Osseous structures are grossly intact. Small bibasilar effusions, with adjacent atelectasis. No mediastinal or hilar adenopathy. No pneumothorax. Moderate to severe emphysematous changes are present bilaterally. 4.9 mm dural based nodule of the right middle lobe. Groundglass nodule in the anterior right lung base measuring 3.5 mm. Groundglass nodule in the lateral left upper lobe measuring 4.4 mm. IMPRESSION: Negative for pulmonary embolus, thoracic aortic aneurysm, or dissection. Moderate to severe emphysematous changes. Bilateral pulmonary nodules. Please see below for current Fleischner Society recommendations. Small bibasilar effusions with adjacent atelectasis. 2017 Fleischner Society Recommendations for Multiple Solid Lung Nodules Follow-Up base on size (average of long- and short-axis diameters). Use most suspicious nodule for followup. Nodule Size <6 mm Low-Risk Patient: No routine follow-up Nodule Size <6 mm High-Risk Patient: Optional CT at 12 months Nodule Size 6-8 mm Low-Risk Patient: CT at 3-[address] at 18-24 months Nodule Size 6-8 mm High-Risk Patient: CT at 3-6 months then at 18-24 months Nodule Size (mm) >8 Low-Risk Patient: CT at 3-6 months, then consider CT at 18-24 months Nodule Size (mm) >8 High-Risk Patient: CT at 3-6 months, then at 18-24 months TECHNICAL DOCUMENTATION: Quality ID # [id number]: Final reports with documentation of one or more dose reduction techniques (e.g., Automated exposure control, adjustment of the mA and/or kV according to patient size, use of iterative reconstruction technique) 2010 [employer]- All Rights Reserved
[2018-04-27] MEDS ORDERED: ENOXAPARIN SODIUM INJ 60 MG/0.6 ML DISP.SYRIN SUBCUT ONE (04:53)
[2018-04-27 05:40] LABS: APPEARANCE,URINE CLEAR; BILIRUBIN,URINE NEGATIVE (NEGATIVE); COLOR,URINE YELLOW; GLUCOSE, URINE NEGATIVE (NEGATIVE); KETONES,URINE NEGATIVE (NEGATIVE); LEUKOCYTE ESTERASE,URINE LARGE (NEGATIVE); NITRITE,URINE NEGATIVE (NEGATIVE); PROTEIN,URINE NEGATIVE (NEGATIVE); URINE SPECIFIC GRAVITY 1.013; UROBILINOGEN,URINE NEGATIVE mg/dL (<2.0)
[2018-04-27] MEDS ORDERED: CEFTRIAXONE 1 GM/D5W RTU 1 GM/50 ML RTUPB IV ONE (06:20)
[2018-04-27] MEDS ORDERED: NITROGLYCERIN 2% OINTMENT 1 GM PACKET TP ONE (06:32)
[2018-04-27] MEDS ORDERED: IPRATROPIUM/ALBUTEROL 0.5-2.5 MG/3 ML AMPUL NEB PRN (08:55)
--- NOTE | 2018-04-27 08:55 | PDOC H&P ---
History of Present Illness Admission Date/PCP: 04/27/18 06:31 OSEAS YANCEY MD Patient complains of: dyspnea History of Present Illness: RUDY GONZALES is a 67 year old female with emphysema diastolic failure alcoholic cirrhosis & distal esophageal cancer has had 2d buckley & pnd unrelieved by kim. 2010 echo: ddf1 mr moderate [id number] Lae Nisa Rve Past Medical History Cardiac Medical History: Reports: Congestive Heart Failure - chronic diastolic with moderate mr and Pht 5y ago, Hypertension Denies: Coronary Artery Disease, Myocardial Infarction Pulmonary Medical History: Reports: Bronchitis, Chronic Obstructive Pulmonary Disease (COPD), Intubation - 2010 respiratory arrest. November fev1=50%. Cant afford spiriva, Respiratory Failure Denies: Asthma, Pneumonia, Tuberculosis EENT Medical History: Reports: Other - rhinitis Neurological Medical History: Reports: None Denies: Seizures Endocrine Medical History: Reports: None Renal/ Medical History: Reports: None Malignancy Medical History: Reports: Other - esophageal GI Medical History: Reports: Cirrhosis, Gastroesophageal Reflux Disease, Hepatitis - alcoholic Musculoskeltal Medical History: Denies: Arthritis Psychiatric Medical History: Reports: Alcohol Dependency Traumatic Medical History: Reports: None Hematology: Reports: Anemia Infectious Medical History: Reports: None Past Surgical History Past Surgical History: Reports: Cholecystectomy, Herniorrhaphy, Hysterectomy, Other - jejunostomy Denies: Pacemaker Social History Information Source: Dr. Pierre Lives with: Spouse/Significant other Smoking Status: Former Smoker Frequency of Alcohol Use: None Hx Recreational Drug Use: No Drugs: None Hx Prescription Drug Abuse: No - Advance Directive Resuscitation Status: Full Code Family History Family History: Malignancy Parental Family History Reviewed: Yes Children Family History Reviewed: Yes Sibling(s) Family History Reviewed.: Yes Medication/Allergy Home Medications: Ipratropium/Albuterol Sulfate [Duoneb 3 ml Ampul] 3 ml NEB [id number] PRN 04/27/18 Lisinopril/Hydrochlorothiazide [Lisinopril-Hctz 20-25 mg Tab] 1 each PO DAILY Allergies/Adverse Reactions: hydrocodone Allergy (Severe, Verified 04/27/18 03:02) Pruritis oxycodone Allergy (Intermediate, Verified 04/27/18 03:02) Hallucinations hydromorphone [From Dilaudid] Allergy (Mild, Verified 04/27/18 03:02) Throws up codeine [Codeine] Allergy (Unknown, Verified 04/27/18 03:02) Pruritis Review of Systems Constitutional: ABSENT: fever(s), headache(s), weight loss Nose, Mouth, and Throat: ABSENT: sore throat Cardiovascular: PRESENT: dyspnea on exertion, orthropnea. ABSENT: chest pain Respiratory: PRESENT: dyspnea. ABSENT: cough, sputum Gastrointestinal: PRESENT: constipation. ABSENT: abdominal pain, diarrhea, hematochezia, vomiting Genitourinary: PRESENT: other - urine odor. ABSENT: dysuria Musculoskeletal: ABSENT: back pain Integumentary: ABSENT: rash Neurological: PRESENT: as per HPI Psychiatric: PRESENT: as per HPI Physical Exam Vital Signs: Temp Pulse Resp BP Pulse Ox 98.6 F 140 H 18 138/93 H 94 04/27/18 05:50 04/27/18 02:55 04/27/18 05:50 04/27/18 05:50 04/27/18 05:50 General appearance: PRESENT: no acute distress Mouth exam: PRESENT: moist, neck supple, tongue midline Neck exam: ABSENT: lymphadenopathy, tenderness, thyromegaly, tracheal deviation Respiratory exam: PRESENT: clear to auscultation brandee Cardiovascular exam: PRESENT: systolic murmur. ABSENT: diastolic murmur, irregular rhythm Murmur grade: 2 GI/Abdominal exam: ABSENT: mass, organolmegaly, tenderness Extremities exam: ABSENT: pedal edema Neurological exam: PRESENT: oriented to time, oriented to situation Psychiatric exam: PRESENT: appropriate affect Results Laboratory Results: Abnormal - 24 hr 04/27/18 04/27/18 04/27/18 02:49 02:49 02:49 WBC 12.9 H MCV 99 H MCH 34.2 H RDW 15.1 H Seg Neutrophils % 81.1 H Lymphocytes % 10.7 L Absolute Neutrophils 10.5 H Glucose 118 H NT-Pro-B Natriuret Pep 5530 H Urine Blood Ur Leukocyte Esterase 04/27/18 04:50 WBC MCV MCH RDW Seg Neutrophils % Lymphocytes % Absolute Neutrophils Glucose NT-Pro-B Natriuret Pep Urine Blood SMALL H Ur Leukocyte Esterase LARGE H Impressions: Chest X-Ray 04/27/18 02:55 IMPRESSION: Small right pleural effusion. Underlying COPD. Osteopenia 2010 [employer]- All Rights Reserved Chest/Abdomen CTA 04/27/18 03:44 IMPRESSION: Negative for pulmonary embolus, thoracic aortic aneurysm, or dissection. Moderate to severe emphysematous changes. Bilateral pulmonary nodules. Please see below for current Fleischner Society recommendations. Small bibasilar effusions with adjacent atelectasis. 2017 Fleischner Society Recommendations for Multiple Solid Lung Nodules Follow-Up base on size (average of long- and short-axis diameters). Use most suspicious nodule for followup. Nodule Size <6 mm Low-Risk Patient: No routine follow-up Nodule Size <6 mm High-Risk Patient: Optional CT at 12 months Nodule Size 6-8 mm Low-Risk Patient: CT at 3-[address] at 18-24 months Nodule Size 6-8 mm High-Risk Patient: CT at 3-6 months then at 18-24 months Nodule Size (mm) >8 Low-Risk Patient: CT at 3-6 months, then consider CT at 18-24 months Nodule Size (mm) >8 High-Risk Patient: CT at 3-6 months, then at 18-24 months TECHNICAL DOCUMENTATION: Quality ID # [id number]: Final reports with documentation of one or more dose reduction techniques (e.g., Automated exposure control, adjustment of the mA and/or kV according to patient size, use of iterative reconstruction technique) 2010 [employer]- All Rights Reserved Assessment & Plan - Diagnosis (1) Acute on chronic diastolic congestive heart failure Is this a current diagnosis for this admission?: Yes Plan: furosemide lisinopril echo (2) Panacinar emphysema Is this a current diagnosis for this admission?: Yes Plan: duoneb (3) Nonrheumatic mitral valve insufficiency Is this a current diagnosis for this admission?: Yes (4) 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 Is this a current diagnosis for this admission?: Yes (5) Alcoholic cirrhosis Qualifiers: Ascites presence: without ascites Qualified Code(s): K70.30 - Alcoholic cirrhosis of liver without ascites Is this a current diagnosis for this admission?: Yes Plan: no distention now (6) Acute cystitis Qualifiers: Hematuria presence: without hematuria Qualified Code(s): N30.00 - Acute cystitis without hematuria Is this a current diagnosis for this admission?: Yes Plan: ceftri - Inpatient Certification Based on my medical assessment, after consideration of the patient's comorbidities, presenting symptoms, or acuity I expect that the services needed warrant INPATIENT care.: Yes Medical Necessity: Significant Comorbidiites Make Outpatient Treatment Too Risky , Need Close Monitoring Due to Risk of Patient Decompensation, Need For Continuous Telemetry Monitoring, Need for Nebulizer Therapy and Monitoring of Response, Need for IV Antibiotics, Risk of Complication if Not Cared For in Hospital, Risk of Diagnosis Which Will Require Inpatient Eval/Care/Monitoring
[2018-04-27] MEDS: FUROSEMIDE 40 MG TABLET PO SCH ×2 (09:18→18:05)
[2018-04-27] MEDS: ENOXAPARIN SODIUM INJ 40 MG/0.4 ML DISP.SYRIN SUBCUT SCH (09:18)
[2018-04-27] MEDS: LISINOPRIL 10 MG TABLET PO SCH (09:18)
[2018-04-27] MEDS: FAMOTIDINE 20 MG TABLET PO SCH ×2 (09:18→22:17)
--- NOTE | 2018-04-27 09:41 | EKG REPORT ---
SEVERITY:- ABNORMAL ECG - SINUS TACHYCARDIA PAIRED VENTRICULAR PREMATURE COMPLEXES LEFT AXIS DEVIATION MINIMAL ST DEPRESSION, ANTERIOR LEADS : Confirmed by: Natalie Mcgregor MD 27-Apr-2018 09:39:58
[2018-04-27] MEDS ORDERED: ACETAMINOPHEN 325 MG TABLET ONE (16:35)
[2018-04-27] MEDS: ACETAMINOPHEN 325 MG TABLET PO PRN (22:16)
[2018-04-28] MEDS: ACETAMINOPHEN 325 MG TABLET PO PRN ×2 (03:50→08:36)
[2018-04-28 05:19] LABS: HEMATOCRIT 36.2 % (36.0-47.0); HEMOGLOBIN 12.2 g/dL (12.0-15.5); MEAN CORPUSCULAR HEMOGLOBIN 33.6 pg (27.0-33.4); MEAN CORPUSCULAR HGB CONC 33.8 g/dL (32.0-36.0); MEAN CORPUSCULAR VOLUME 100 fl (80-97); PLATELET COUNT 163 10^3/uL (150-450); RED BLOOD COUNT 3.64 10^6/uL (3.72-5.28); RED CELL DISTRIBUTION WIDTH 14.4 % (11.5-14.0); WHITE BLOOD COUNT 16.3 10^3/uL (4.0-10.5)
--- NOTE | 2018-04-28 07:26 | PDOC PROGRESS REPORT ---
Subjective Progress Note for:: 04/28/18 Subjective:: Less dyspnea. Midback pain radiating to epigastrium relieved by tylenol. No chest pain. Reason For Visit: HEART FAILURE Physical Exam Vital Signs: Temp Pulse Resp BP Pulse Ox 97.8 F 89 17 111/67 100 04/28/18 05:29 04/28/18 05:29 04/28/18 05:29 04/28/18 05:29 04/28/18 05:29 Intake & Output 04/26/18 04/27/18 04/28/18 08:59 07:59 07:59 Intake Total 1056 Balance 1056 Weight 97 lb 7.109 oz General appearance: PRESENT: no acute distress Respiratory exam: PRESENT: clear to auscultation brandee Cardiovascular exam: PRESENT: systolic murmur. ABSENT: diastolic murmur, irregular rhythm Murmur grade: 3 GI/Abdominal exam: ABSENT: mass, organolmegaly, tenderness Extremities exam: ABSENT: pedal edema Neurological exam: PRESENT: oriented to situation Psychiatric exam: PRESENT: appropriate affect Results Laboratory Results: 04/28/18 04:25 Abnormal - 24 hr Labs- All tests 24 hr 04/27/18 04/27/18 04/27/18 10:16 16:54 23:10 WBC RBC Hgb Hct MCV MCH MCHC RDW Plt Count Troponin I 0.106 0.108 0.098 NT-Pro-B Natriuret Pep 04/28/18 04/28/18 04:25 04:25 WBC 16.3 H RBC 3.64 L Hgb 12.2 Hct 36.2 MCV 100 H MCH 33.6 H MCHC 33.8 RDW 14.4 H Plt Count 163 Troponin I NT-Pro-B Natriuret Pep 7200 H Impressions: Chest X-Ray 04/27/18 02:55 IMPRESSION: Small right pleural effusion. Underlying COPD. Osteopenia 2010 [employer]- All Rights Reserved Chest/Abdomen CTA 04/27/18 03:44 IMPRESSION: Negative for pulmonary embolus, thoracic aortic aneurysm, or dissection. Moderate to severe emphysematous changes. Bilateral pulmonary nodules. Please see below for current Fleischner Society recommendations. Small bibasilar effusions with adjacent atelectasis. 2017 Fleischner Society Recommendations for Multiple Solid Lung Nodules Follow-Up base on size (average of long- and short-axis diameters). Use most suspicious nodule for followup. Nodule Size <6 mm Low-Risk Patient: No routine follow-up Nodule Size <6 mm High-Risk Patient: Optional CT at 12 months Nodule Size 6-8 mm Low-Risk Patient: CT at 3-[address] at 18-24 months Nodule Size 6-8 mm High-Risk Patient: CT at 3-6 months then at 18-24 months Nodule Size (mm) >8 Low-Risk Patient: CT at 3-6 months, then consider CT at 18-24 months Nodule Size (mm) >8 High-Risk Patient: CT at 3-6 months, then at 18-24 months TECHNICAL DOCUMENTATION: Quality ID # 436: Final reports with documentation of one or more dose reduction techniques (e.g., Automated exposure control, adjustment of the mA and/or kV according to patient size, use of iterative reconstruction technique) 2010 [employer]- All Rights Reserved Assessment & Plan - Diagnosis (1) Acute on chronic diastolic congestive heart failure Is this a current diagnosis for this admission?: Yes Plan: Bnp 5500 7200. Troponin 0.16 0.10. Preliminary echo suggests to me [id number] pw11 mr ar. Continue furosemide 40bid. Consult cardiology. (2) Panacinar emphysema Is this a current diagnosis for this admission?: Yes (3) Nonrheumatic mitral valve insufficiency Is this a current diagnosis for this admission?: Yes (4) 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 Is this a current diagnosis for this admission?: Yes (5) Alcoholic cirrhosis Qualifiers: Ascites presence: without ascites Qualified Code(s): K70.30 - Alcoholic cirrhosis of liver without ascites Is this a current diagnosis for this admission?: Yes (6) Acute cystitis Qualifiers: Hematuria presence: without hematuria Qualified Code(s): N30.00 - Acute cystitis without hematuria Is this a current diagnosis for this admission?: Yes - Inpatient Certification Medical Necessity: Significant Comorbidiites Make Outpatient Treatment Too Risky , Need Close Monitoring Due to Risk of Patient Decompensation, Need For Continuous Telemetry Monitoring, Need for Nebulizer Therapy and Monitoring of Response, Need for IV Antibiotics, Risk of Complication if Not Cared For in Hospital, Risk of Diagnosis Which Will Require Inpatient Eval/Care/Monitoring
--- NOTE | 2018-04-28 09:49 | XCELERA REPORT ---
[address] [address] Transthoracic Echocardiogram Report Name: RUDY GONZALES Age: 67 yrs Gender: Female : 1950 Patient Status: Inpatient Patient Location: 5529^A Study Date: 04/27/2018 01:49 PM Height: 60 in Weight: 94 lb BSA: 1.4 m2 Procedure: A complete two-dimensional transthoracic echocardiogram was performed (2D, M-mode, spectral and color flow Doppler). The study was technically adequate with some images being suboptimal in quality. Reason For Study: acute chronic diastolic failure Ordering Physician: JAMSE^^^ Performed By: PRISCILA Interpretation Summary The left ventricular ejection fraction is normal. There is borderline concentric left ventricular hypertrophy. The left ventricle is grossly normal size. LV diastolic function could not be adequately assessed due to atrial fibrilation. Wall motion cannot be accurately commented on, but no definite regional wall motion abnormalities noted. The right ventricular systolic function is normal. The left atrium is moderately dilated. The right atrium is normal. There is a moderate amount of mitral regurgitation There is no mitral valve stenosis. The mitral valve leaflets are sclerotic and show some degree of functional abnormality There is no aortic valve stenosis There is a mild amount of aortic regurgitation There is a trace or physiologic amount of tricuspid regurgitation Tricuspid regurgitation jet envelope not well defined to measure RV systolic pressure accurately. The aortic root is not well visualized but is probably normal size. The inferior vena cava was not well visualized There is no pericardial effusion. MMode/2D Measurements & Calculations RVDd: 1.8 cm LVIDd: 3.1 cm FS: 22.5 % Ao root diam: 2.3 cm IVSd: 0.84 cm LVIDs: 2.4 cm EDV(Teich): 37.4 ml Ao root area: 4.0 cm2 LVPWd: 1.1 cm ESV(Teich): 19.9 ml LA dimension: 3.6 cm EF(Teich): 46.7 % LVOT diam: 1.6 cm LVOT area: 2.0 cm2 Doppler Measurements & Calculations MV E max rachel: MV P1/2t max rachel: Ao V2 max: AI max rachel: 181.2 cm/sec 188.6 cm/sec 108.6 cm/sec 177.4 cm/sec MV P1/2t: 50.0 msec Ao max PG: AI max P.6 mmHg MVA(P1/2t): 4.4 cm2 4.7 mmHg AI dec slope: MV dec slope: ARTURO(V,D): 1.7 cm2 543.3 cm/sec2 AI P1/2t: 95.6 msec 1105 cm/sec2 MV dec time: 0.19 sec LV V1 max PG: MR max rachel: PA V2 max: TR max rachel: 3.7 mmHg 287.7 cm/sec 68.5 cm/sec 234.3 cm/sec LV V1 max: MR max P.1 mmHg PA max PG: TR max P.0 mmHg 95.6 cm/sec 1.9 mmHg AV P1/2t-pr_phl: MV P1/2t-pr_phl: 95.6 msec 50.0 msec Left Ventricle The left ventricle is grossly normal size. There is borderline concentric left ventricular hypertrophy. The left ventricular ejection fraction is normal. LV diastolic function could not be adequately assessed due to atrial fibrilation. Wall motion cannot be accurately commented on, but no definite regional wall motion abnormalities noted. Right Ventricle The right ventricle is grossly normal size. There is normal right ventricular wall thickness. The right ventricular systolic function is normal. Atria The right atrium is normal. The left atrium is moderately dilated. Interarterial septum not well visualized and not well dopplered. Cannot comment on ASD/PFO presence. Mitral Valve The mitral valve leaflets are sclerotic and show some degree of functional abnormality. There is no mitral valve stenosis. There is a moderate amount of mitral regurgitation. Aortic Valve The aortic valve is grossly normal. There is no aortic valve stenosis. There is a mild amount of aortic regurgitation. Tricuspid Valve The tricuspid valve is not well visualized secondary to technical limitations. There is no tricuspid stenosis. There is a trace or physiologic amount of tricuspid regurgitation. Tricuspid regurgitation jet envelope not well defined to measure RV systolic pressure accurately. Pulmonic Valve The pulmonic valve is not well visualized. Great Vessels The aortic root is not well visualized but is probably normal size. The inferior vena cava was not well visualized. Effusions There is no pericardial effusion. : BC^OSEAS^^^MD > Janine Parrish
[2018-04-28] MEDS: LUBIPROSTONE 24 MCG CAPSULE PO SCH ×2 (11:03→17:58)
[2018-04-28] MEDS: FUROSEMIDE 40 MG TABLET PO SCH ×2 (11:04→17:56)
[2018-04-28] MEDS: LISINOPRIL 10 MG TABLET PO SCH (11:04)
[2018-04-28] MEDS: LANSOPRAZOLE 30 MG TAB.RAP.DR PO SCH (11:05)
[2018-04-28] MEDS: ENOXAPARIN SODIUM INJ 40 MG/0.4 ML DISP.SYRIN SUBCUT SCH (11:05)
[2018-04-28] MEDS: FAMOTIDINE 20 MG TABLET PO SCH ×2 (11:05→21:46)
[2018-04-28] MEDS ORDERED: METOPROLOL SUCCINATE 25 MG TAB.SR.24H PO SCH (18:00)
--- NOTE | 2018-04-28 19:43 | PDOC CONSULTATION ---
Consultation Consult Date: 04/28/18 Attending physician:: LJ YANCEY History of Present Illness Admission Date/PCP: 04/27/18 06:31 OSEAS YANCEY MD Patient complains of: Shortness of breath History of Present Illness: RUDY GONZALES is a 67 year old female with congestive heart failure, hypertension, COPD, respiratory failure, esophageal cancer presents with complaints of shortness of breath that started 2 days prior to arrival. Patient denies any increased cough, sputum production, fever, chills. She does admit to body aches. She denies chest pain, nausea, vomiting, diaphoresis, lightheadedness. She did try her nebulizer machine at home without relief. She no longer smokes. She denies any recent hospitalizations. Patient did receive albuterol by EMS prior to arrival. Patient noted to have elevated BNP and a small bilateral pleural effusion. I been asked to evaluate patient because of CHF and also positive troponin I. Patient however denies any known history of heart problems. She was noted to be very tachycardic on presentation and has improved significantly with current regimen. Past Medical History Cardiac Medical History: Reports: Congestive Heart Failure - chronic diastolic with moderate mr and Pht 5y ago, Hypertension Denies: Coronary Artery Disease, Myocardial Infarction Pulmonary Medical History: Reports: Bronchitis, Chronic Obstructive Pulmonary Disease (COPD), Intubation - 2010 respiratory arrest. November fev1=50%. Cant afford spiriva, Respiratory Failure Denies: Asthma, Pneumonia, Tuberculosis EENT Medical History: Reports: Other - rhinitis Neurological Medical History: Reports: None Denies: Seizures Endocrine Medical History: Reports: None Renal/ Medical History: Reports: None Malignancy Medical History: Reports: Other - esophageal GI Medical History: Reports: Cirrhosis, Gastroesophageal Reflux Disease, Hepatitis - alcoholic Musculoskeltal Medical History: Denies: Arthritis Psychiatric Medical History: Reports: Alcohol Dependency Traumatic Medical History: Reports: None Hematology: Reports: Anemia, Other - rhinitis Infectious Medical History: Reports: None Past Surgical History Past Surgical History: Reports: Cholecystectomy, Herniorrhaphy, Hysterectomy, Other - jejunostomy Denies: Pacemaker Social History Information Source: Patient Lives with: Spouse/Significant other Smoking Status: Former Smoker Frequency of Alcohol Use: None Hx Recreational Drug Use: No Drugs: None Hx Prescription Drug Abuse: No - Advance Directive Resuscitation Status: Full Code Family History Family History: Malignancy Parental Family History Reviewed: Yes Children Family History Reviewed: Yes Sibling(s) Family History Reviewed.: Yes Medication/Allergy Home Medications: Ipratropium/Albuterol Sulfate [Duoneb 3 ml Ampul] 3 ml NEB [id number] PRN 04/27/18 Lisinopril/Hydrochlorothiazide [Lisinopril-Hctz 20-25 mg Tab] 1 each PO DAILY Allergies/Adverse Reactions: hydrocodone Allergy (Severe, Verified 04/27/18 03:02) Pruritis oxycodone Allergy (Intermediate, Verified 04/27/18 03:02) Hallucinations hydromorphone [From Dilaudid] Allergy (Mild, Verified 04/27/18 03:02) Throws up codeine [Codeine] Allergy (Unknown, Verified 04/27/18 03:02) Pruritis Review of Systems Review of Systems: Please see history of present illness and past medical history as wall. Constitutional: No fever or chills reported. Head : No recent chronic headaches, recent head injury. Eyes: No recent eye pain, diplopia, redness, discharge, acute visual changes. Ears: No recent chronic ear pain, acute hearing loss, ear discharge. Oral cavity: No recent ulcerations, bleeding, oral cavity discomfort. Neck: No recent acute neck pain reported. Hematologic: No recent easy bruising or bleeding. Lymphatic: No recent lymph node enlargement reported. Cardiovascular system review: See history of present illness. Respiratory system review: No hemoptysis or blood clots in the lungs reported. Shortness of breath on exertion Gastrointestinal system review: Negative for any recent acute hematemesis, melena. History of esophageal cancer. Genitourinary system review: No recent acute or chronic hematuria, flank pain, UTI etc. reported. Skin system review: Negative for any recent abnormal bruising, no rash, no pruritus reported. Neurologic: No prior history of strokes, mini strokes, seizure disorder. Psychologic: No history of major psychosis or major depression reported. Musculoskeletal: Minor aches and pains reported. No acute joint swelling reported. Endocrine: No recent polyuria, polydipsia, recent heat or cold intolerance. Physical Exam Vital Signs: Temp Pulse Resp BP Pulse Ox 99.2 F 114 H 18 108/77 100 04/28/18 16:00 04/28/18 16:00 04/28/18 16:00 04/28/18 16:00 04/28/18 16:00 Intake & Output 04/27/18 04/28/18 04/29/18 06:59 06:59 06:59 Intake Total 1106 358 Balance 1106 358 Weight 44.2 kg Exam: GENERAL: well-nourished and in no acute distress. Alert and oriented x3 HEAD: Atraumatic, normocephalic. EYES: TAMELA, sclera anicteric, conjunctiva are normal. ENT: Moist mucous membranes. No oral ulcerations or bleeding gums noted. No obvious ear, nose or throat abnormalities noted. NECK: supple without lymphadenopathy. Trachea is central. No cervical or axillary lymphadenopathy noted. Carotids are 2+, JVD WNL LUNGS: Breath sounds clear bilaterally. No wheezes rales or rhonchi noted. No significant dullness noted on percussion. CHEST: Palpation of the chest wall shows no significant chest wall tenderness. HEART: Hester LAUNDRY ROUTEMAN, No PSH, 2/6 MARLENE aortic area, 1/6 fabian systolic murmur mitral area , no rubs, no gallops. ABDOMEN: Soft, no significant tenderness appreciated, normoactive bowel sounds. No guarding, no rebound. No rigidity noted . No masses appreciated. EXTREMITIES: Pedal pulses are 1-2+, no calf tenderness noted. No clubbing or cyanosis. negative pedal edema noted NEUROLOGICAL: Focused neurological exam showed no significant neurologic deficit. Normal speech, no focal weakness appreciated. PSYCH: Normal mood, normal affect. Judgment and insight within normal limits. SKIN: No significant ecchymosis, skin is noted to be warm. MUSCULOSKELETAL EXAM: No significant acute joint swelling noted. Results Laboratory Results: 04/28/18 04:25 04/28/18 04:25 WBC 16.3 H RBC 3.64 L Hgb 12.2 Hct 36.2 MCV 100 H MCH 33.6 H MCHC 33.8 RDW 14.4 H Plt Count 163 04/27/18 04/27/18 04/27/18 10:16 16:54 23:10 Troponin I 0.106 0.108 0.098 NT-Pro-B Natriuret Pep 04/28/18 04:25 Troponin I NT-Pro-B Natriuret Pep 7200 H EKG Comments: Shows sinus tachycardia, no acute ST-T wave changes are noted. Impressions: Chest X-Ray 04/27/18 02:55 IMPRESSION: Small right pleural effusion. Underlying COPD. Osteopenia 2010 [employer]- All Rights Reserved Chest/Abdomen CTA 04/27/18 03:44 IMPRESSION: Negative for pulmonary embolus, thoracic aortic aneurysm, or dissection. Moderate to severe emphysematous changes. Bilateral pulmonary nodules. Please see below for current Fleischner Society recommendations. Small bibasilar effusions with adjacent atelectasis. 2017 Fleischner Society Recommendations for Multiple Solid Lung Nodules Follow-Up base on size (average of long- and short-axis diameters). Use most suspicious nodule for followup. Nodule Size <6 mm Low-Risk Patient: No routine follow-up Nodule Size <6 mm High-Risk Patient: Optional CT at 12 months Nodule Size 6-8 mm Low-Risk Patient: CT at 3-[address] at 18-24 months Nodule Size 6-8 mm High-Risk Patient: CT at 3-6 months then at 18-24 months Nodule Size (mm) >8 Low-Risk Patient: CT at 3-6 months, then consider CT at 18-24 months Nodule Size (mm) >8 High-Risk Patient: CT at 3-6 months, then at 18-24 months TECHNICAL DOCUMENTATION: Quality ID # [id number]: Final reports with documentation of one or more dose reduction techniques (e.g., Automated exposure control, adjustment of the mA and/or kV according to patient size, use of iterative reconstruction technique) 2010 [employer]- All Rights Reserved Assessment & Plan - Diagnosis (1) Acute on chronic diastolic congestive heart failure Is this a current diagnosis for this admission?: Yes (2) Bilateral pleural effusion Is this a current diagnosis for this admission?: Yes (3) Elevated brain natriuretic peptide (BNP) level Is this a current diagnosis for this admission?: Yes (4) Elevated troponin Is this a current diagnosis for this admission?: Yes (5) Nonrheumatic mitral valve insufficiency Is this a current diagnosis for this admission?: Yes (6) Panacinar emphysema Is this a current diagnosis for this admission?: Yes - Notes Notes: Acute on chronic diastolic heart failure: Recommend diuretic therapy. Patient was noted to have significant sinus tachycardia. Will consider adding Cardizem to the regimen. Patient may have had paroxysmal atrial fibrillation precipitating CHF. Patient will benefit from cardiac event monitoring as an outpatient. Bilateral pleural effusion: Possibly related to congestive heart failure. Recommend diuretic therapy. Elevated BNP level: Part and parcel of CHF. Elevated troponin I: We will consider scheduling patient for a nuclear stress test. Mitral valve regurgitation: Patient noted to have moderate mitral regurgitation. This was on echocardiogram obtained yesterday. Patient will need periodic echocardiograms as mitral regurgitation can progress asymptomatically. Emphysema: Patient already has quit smoking. Continue with bronchodilator therapy and steroid therapy as needed. - Time Time Spent: 30 to 50 Minutes - CODE STATUS was discussed, patient remains full code. Multiple medical problems were addressed. More than 50% of the time spent coordinating care, discussing management plans with involved caregivers. Management plans discussed with involved personnels. Medical decision making was of moderate to high complexity, patient's has multiple comorbidities. Medications reviewed and adjusted accordingly: Yes
[2018-04-29] MEDS: ACETAMINOPHEN 325 MG TABLET PO PRN (03:37)
[2018-04-29] MEDS: LANSOPRAZOLE 30 MG TAB.RAP.DR PO SCH (05:26)
[2018-04-29] MEDS ORDERED: DILTIAZEM HCL 30 MG TABLET PO SCH (06:00)
[2018-04-29 06:09] LABS: ANION GAP 10 (5-19); BLOOD UREA NITROGEN 25 mg/dL (7-20); CALCIUM 9.6 mg/dL (8.4-10.2); CARBON DIOXIDE 28 mmol/L (22-30); CHLORIDE 103 mmol/L (98-107); GLUCOSE 78 mg/dL (75-110); POTASSIUM 3.9 mmol/L (3.6-5.0); SODIUM 141.1 mmol/L (137-145)
--- NOTE | 2018-04-29 08:08 | PDOC PROGRESS REPORT ---
Subjective Progress Note for:: 04/29/18 Subjective:: Less dyspnea but solid dysphagia ondynophagia. Dr Mclean had scheduled outpatient pet scan for today because of weight loss & cea elevation. Reason For Visit: HEART FAILURE Physical Exam Vital Signs: Temp Pulse Resp BP Pulse Ox 98.2 F 90 17 95/57 L 100 04/29/18 04:02 04/29/18 04:02 04/29/18 04:02 04/29/18 04:02 04/29/18 04:02 Intake & Output 04/27/18 04/28/18 04/29/18 07:59 07:59 07:59 Intake Total 1056 1156 Balance 1056 1156 Weight 97 lb 7.109 oz 93 lb 14.671 oz General appearance: PRESENT: no acute distress Respiratory exam: PRESENT: clear to auscultation brandee Cardiovascular exam: ABSENT: diastolic murmur, irregular rhythm, systolic murmur Murmur grade: 3 GI/Abdominal exam: ABSENT: mass, organolmegaly, tenderness Extremities exam: ABSENT: pedal edema Neurological exam: PRESENT: oriented to time. ABSENT: oriented to situation Psychiatric exam: PRESENT: appropriate affect Results Laboratory Results: 04/28/18 04:25 04/29/18 05:06 04/29/18 05:06 Sodium 141.1 Potassium 3.9 Chloride 103 Carbon Dioxide 28 Anion Gap 10 BUN 25 H Creatinine 1.15 Est GFR ( Amer) 57 L Est GFR (Non-Af Amer) 47 L Glucose 78 Calcium 9.6 04/28/18 04/29/18 04:25 05:06 Troponin I NT-Pro-B Natriuret Pep 7200 H 6050 H Impressions: Chest X-Ray 04/27/18 02:55 IMPRESSION: Small right pleural effusion. Underlying COPD. Osteopenia 2010 [employer]- All Rights Reserved Chest/Abdomen CTA 04/27/18 03:44 IMPRESSION: Negative for pulmonary embolus, thoracic aortic aneurysm, or dissection. Moderate to severe emphysematous changes. Bilateral pulmonary nodules. Please see below for current Fleischner Society recommendations. Small bibasilar effusions with adjacent atelectasis. 2017 Fleischner Society Recommendations for Multiple Solid Lung Nodules Follow-Up base on size (average of long- and short-axis diameters). Use most suspicious nodule for followup. Nodule Size <6 mm Low-Risk Patient: No routine follow-up Nodule Size <6 mm High-Risk Patient: Optional CT at 12 months Nodule Size 6-8 mm Low-Risk Patient: CT at 3-[address] at 18-24 months Nodule Size 6-8 mm High-Risk Patient: CT at 3-6 months then at 18-24 months Nodule Size (mm) >8 Low-Risk Patient: CT at 3-6 months, then consider CT at 18-24 months Nodule Size (mm) >8 High-Risk Patient: CT at 3-6 months, then at 18-24 months TECHNICAL DOCUMENTATION: Quality ID # 436: Final reports with documentation of one or more dose reduction techniques (e.g., Automated exposure control, adjustment of the mA and/or kV according to patient size, use of iterative reconstruction technique) 2010 [employer]- All Rights Reserved Assessment & Plan - Diagnosis (1) Paroxysmal atrial fibrillation Is this a current diagnosis for this admission?: Yes Plan: rate control with diltiazem but no anticoagulation in view of cirrhosis. (2) Acute on chronic diastolic congestive heart failure Is this a current diagnosis for this admission?: Yes Plan: bun & creatinine up enough. Afib on echo. Rate up to 160s intermittantly. Toprol 25 1 dose. La- mr=moderate pw11 Lv- hk? ej47 ar=mild grd5. Rvp?. Bp down. Decrease furosemide to 20mg qd. Stop maldonado. Stop metoprolol. Start diltiazem 30tid. (3) Nonrheumatic mitral valve insufficiency Is this a current diagnosis for this admission?: Yes Plan: moderate on echo (4) Panacinar emphysema Is this a current diagnosis for this admission?: Yes (5) 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 Is this a current diagnosis for this admission?: Yes (6) Alcoholic cirrhosis Qualifiers: Ascites presence: without ascites Qualified Code(s): K70.30 - Alcoholic cirrhosis of liver without ascites Is this a current diagnosis for this admission?: Yes (7) Acute cystitis Qualifiers: Hematuria presence: without hematuria Qualified Code(s): N30.00 - Acute cystitis without hematuria Is this a current diagnosis for this admission?: Yes (8) Malignant neoplasm of lower third of esophagus Is this a current diagnosis for this admission?: Yes Plan: consult Dr Mclean. Barium swallow. - Inpatient Certification Medical Necessity: Significant Comorbidiites Make Outpatient Treatment Too Risky , Need Close Monitoring Due to Risk of Patient Decompensation, Need For Continuous Telemetry Monitoring, Need for Nebulizer Therapy and Monitoring of Response, Need for IV Antibiotics, Risk of Complication if Not Cared For in Hospital, Risk of Diagnosis Which Will Require Inpatient Eval/Care/Monitoring
[2018-04-29] MEDS ORDERED: DILTIAZEM HCL 30 MG TABLET PO ONE (09:00)
[2018-04-29] MEDS: ENOXAPARIN SODIUM INJ 40 MG/0.4 ML DISP.SYRIN SUBCUT SCH (09:13)
[2018-04-29] MEDS: LUBIPROSTONE 24 MCG CAPSULE PO SCH ×2 (09:14→17:09)
[2018-04-29] MEDS ORDERED: FUROSEMIDE 20 MG TABLET PO SCH (10:00)
[2018-04-29] MEDS ORDERED: METOPROLOL SUCCINATE 25 MG TAB.SR.24H PO SCH (10:00)
[2018-04-29] MEDS ORDERED: FUROSEMIDE 40 MG TABLET PO SCH (10:00)
[2018-04-29] MEDS ORDERED: DILTIAZEM HCL 30 MG TABLET PO PRN (11:11)
--- NOTE | 2018-04-29 11:29 | PDOC PROGRESS REPORT ---
Subjective Progress Note for:: 04/29/18 Subjective:: Patient has noted some chest discomfort but this is mainly on swallowing. She has shortness of breath at rest and currently on oxygen therapy. Patient has significant COPD and emphysema.. Patient denying any PND, orthopnea. Patient denied any sustained palpitations, dizziness, syncope, near syncope. Patient denying any fever chills. Patient denying any other significant discomfort. 2D echo results reviewed. It shows normal LVEF. Patient was felt to be in atrial fibrillation during the echocardiogram. Review of systems: Rest review of systems negative. Medications: Medications have been reviewed. Reason For Visit: HEART FAILURE Physical Exam Vital Signs: Temp Pulse Resp BP Pulse Ox 97.7 F 79 16 93/52 L 100 04/29/18 10:17 04/29/18 10:17 04/29/18 10:17 04/29/18 10:17 04/29/18 10:17 Intake & Output 04/28/18 04/29/18 04/30/18 06:59 06:59 06:59 Intake Total 1106 1156 Balance 1106 1156 Weight 44.2 kg 42.6 kg Exam: GENERAL: well-nourished and in no acute distress. Alert and oriented x3 HEAD: Atraumatic, normocephalic. EYES: TAMELA, sclera anicteric, conjunctiva are normal. ENT: Moist mucous membranes. No oral ulcerations or bleeding gums noted. No obvious ear, nose or throat abnormalities noted. NECK: supple without lymphadenopathy. Trachea is central. No cervical or axillary lymphadenopathy noted. Carotids are 2+, JVD WNL LUNGS: Breath sounds clear bilaterally. Few scattered wheezing noted.. No significant dullness noted on percussion. CHEST: Palpation of the chest wall shows no significant chest wall tenderness. HEART: Dorado NAIL KEGGER, No PSH, 1/6 MARLENE aortic area, 1/6 fabian systolic murmur mitral area, no rubs, no gallops. ABDOMEN: Soft, no significant tenderness appreciated, normoactive bowel sounds. No guarding, no rebound. No rigidity noted . No masses appreciated. EXTREMITIES: Pedal pulses are 1-2+, no calf tenderness noted. No clubbing or cyanosis. negative pedal edema noted NEUROLOGICAL: Focused neurological exam showed no significant neurologic deficit. Normal speech, no focal weakness appreciated. PSYCH: Normal mood, normal affect. Judgment and insight within normal limits. SKIN: No significant ecchymosis, skin is noted to be warm. MUSCULOSKELETAL EXAM: No significant acute joint swelling noted. Results Laboratory Results: 04/28/18 04:25 04/29/18 05:06 04/29/18 05:06 Sodium 141.1 Potassium 3.9 Chloride 103 Carbon Dioxide 28 Anion Gap 10 BUN 25 H Creatinine 1.15 Est GFR ( Amer) 57 L Est GFR (Non-Af Amer) 47 L Glucose 78 Calcium 9.6 04/27/18 04/27/18 04/27/18 10:16 16:54 23:10 Troponin I 0.106 0.108 0.098 NT-Pro-B Natriuret Pep 04/28/18 04/29/18 04:25 05:06 Troponin I NT-Pro-B Natriuret Pep 7200 H 6050 H Impressions: Chest X-Ray 04/27/18 02:55 IMPRESSION: Small right pleural effusion. Underlying COPD. Osteopenia 2010 [employer]- All Rights Reserved Chest/Abdomen CTA 04/27/18 03:44 IMPRESSION: Negative for pulmonary embolus, thoracic aortic aneurysm, or dissection. Moderate to severe emphysematous changes. Bilateral pulmonary nodules. Please see below for current Fleischner Society recommendations. Small bibasilar effusions with adjacent atelectasis. 2017 Fleischner Society Recommendations for Multiple Solid Lung Nodules Follow-Up base on size (average of long- and short-axis diameters). Use most suspicious nodule for followup. Nodule Size <6 mm Low-Risk Patient: No routine follow-up Nodule Size <6 mm High-Risk Patient: Optional CT at 12 months Nodule Size 6-8 mm Low-Risk Patient: CT at 3-[address] at 18-24 months Nodule Size 6-8 mm High-Risk Patient: CT at 3-6 months then at 18-24 months Nodule Size (mm) >8 Low-Risk Patient: CT at 3-6 months, then consider CT at 18-24 months Nodule Size (mm) >8 High-Risk Patient: CT at 3-6 months, then at 18-24 months TECHNICAL DOCUMENTATION: Quality ID # 436: Final reports with documentation of one or more dose reduction techniques (e.g., Automated exposure control, adjustment of the mA and/or kV according to patient size, use of iterative reconstruction technique) 2010 [employer]- All Rights Reserved Assessment & Plan - Diagnosis (1) Acute on chronic diastolic congestive heart failure Is this a current diagnosis for this admission?: Yes (2) Bilateral pleural effusion Is this a current diagnosis for this admission?: Yes (3) Elevated brain natriuretic peptide (BNP) level Is this a current diagnosis for this admission?: Yes (4) Elevated troponin Is this a current diagnosis for this admission?: Yes (5) Nonrheumatic mitral valve insufficiency Is this a current diagnosis for this admission?: Yes (6) Panacinar emphysema Is this a current diagnosis for this admission?: Yes - Notes Notes: Acute on chronic diastolic heart failure: Recommend diuretic therapy. Added spironolactone to the regimen. Patient was noted to have significant sinus tachycardia. Will consider adding Cardizem to the regimen. Patient may have had paroxysmal atrial fibrillation precipitating CHF. Patient will benefit from cardiac event monitoring as an outpatient. Bilateral pleural effusion: Possibly related to congestive heart failure. Continue Lasix. Have added to spironolactone.. Elevated BNP level: Part and parcel of CHF. Elevated troponin I: We will consider scheduling patient for a nuclear stress test. After discussion with Dr. Cleveland, have scheduled patient for a pharmacologic stress test. Mitral valve regurgitation: Patient noted to have moderate mitral regurgitation. This was on echocardiogram obtained yesterday. Patient will need periodic echocardiograms as mitral regurgitation can progress asymptomatically. Emphysema: Patient already has quit smoking. Continue with bronchodilator therapy and steroid therapy as needed. - Time Time with patient: Greater than 35 minutes - CODE STATUS was discussed, patient remains full code. Surrogate decision-maker unchanged. Multiple medical problems were addressed. More than 50% of the time spent coordinating care, discussing management plans with involved caregivers. Management plans discussed with involved personnels. Medical decision making was of moderate to high complexity, patient's has multiple comorbidities. Medications reviewed and adjusted accordingly: Yes
[2018-04-29] MEDS: SPIRONOLACTONE 25 MG TABLET PO SCH (13:17)
[2018-04-29] MEDS ORDERED: NORMAL SALINE 500 ML IV ONE (14:00)
--- NOTE | 2018-04-29 14:49 | RADIOLOGY REPORT (SQ) ---
EXAM DESCRIPTION: BARIUM SWALLOW ESOPHAGUS COMPLETED DATE/TIME: 04/29/2018 2:21 pm REASON FOR STUDY: esophageal cancer solid food dysphagia COMPARISON: None. TECHNIQUE: Under fluoroscopic guidance, patient ingested effervescent granules followed by thick and thin barium. Fluoroscopic spot images and routine radiographic images acquired and stored on PACS. LIMITATIONS: None. FLUOROSCOPY TIME: FLUORO TIME: 1 minutes 35 seconds of fluoroscopy was used. 12 images saved to PACS. FINDINGS: NEUROMUSCULAR COORDINATION OF SWALLOW: Normal. No aspiration. ESOPHAGEAL MOTILITY: Normal peristalsis. No esophageal spasm. ESOPHAGEAL MUCOSA: Mucosal filling defects seen in the anterior aspect of the distal esophagus approx imately 10 cm from the GE junction. May be retained food material within the lumen of the esophagus although esophageal mass cannot be entirely ruled out especially in the patient with a history esopha geal cancer. GASTRO-ESOPHAGEAL JUNCTION: No hiatal hernia or reflux. NON-GI TRACT STRUCTURES: No significant finding. OTHER: No other significant finding. IMPRESSION: MUCOSAL FILLING DEFECT SEEN WITHIN THE DISTAL ESOPHAGUS ALONG THE ANTERIOR WALL WHICH MA Y REPRESENT RETAINED FOOD MATERIAL ALTHOUGH ESOPHAGEAL MASS IS SUGGESTED. FOLLOW-UP WITH ENDOSCOPY I S RECOMMENDED. . COMMENT: Quality ID [id number]: Final reports for procedures using fluoroscopy that document radiation exp osure indices, or exposure time and number of fluorographic images (if radiation exposure indices are not available) TECHNICAL DOCUMENTATION: JOB ID: [id number] 1114 [employer]- All Rights Reserved Reading location - IP/workstation name: [email or web address] [id number]
--- NOTE | 2018-04-29 17:25 | PDOC CONSULTATION ---
Consultation Consult Date: 04/29/18 Attending physician:: CHARISSE HICKMAN Consult reason:: abnormal barium swallow History of Present Illness Admission Date/PCP: 04/27/18 06:31 OSEAS YANCEY MD History of Present Illness: RUDY GONZALES is a 67 year old female patient admitted has been having solid food dysphagia patient has ongoing weight loss and has an elevated CEA level also seen by Hematology patient admits to weight loss there is possible lesion in the distal esophagus patient does have a history of alcoholic cirrhosis as well has A fib but is not on any anticoagulation she will need an EGD ? lesion in the distal esophagus Past Medical History Cardiac Medical History: Reports: Congestive Heart Failure - chronic diastolic with moderate mr and Pht 5y ago, Hypertension Denies: Coronary Artery Disease, Myocardial Infarction Pulmonary Medical History: Reports: Bronchitis, Chronic Obstructive Pulmonary Disease (COPD), Intubation - 2010 respiratory arrest. November fev1=50%. Cant afford spiriva, Respiratory Failure Denies: Asthma, Pneumonia, Tuberculosis EENT Medical History: Reports: Other - rhinitis Neurological Medical History: Reports: None Denies: Seizures Endocrine Medical History: Reports: None Renal/ Medical History: Reports: None Malignancy Medical History: Reports: Other - esophageal GI Medical History: Reports: Cirrhosis, Gastroesophageal Reflux Disease, Hepatitis - alcoholic Musculoskeltal Medical History: Denies: Arthritis Psychiatric Medical History: Reports: Alcohol Dependency Traumatic Medical History: Reports: None Hematology: Reports: Anemia, Other - rhinitis Infectious Medical History: Reports: None Past Surgical History Past Surgical History: Reports: Cholecystectomy, Herniorrhaphy, Hysterectomy, Other - jejunostomy Denies: Pacemaker Social History Lives with: Spouse/Significant other Smoking Status: Former Smoker Frequency of Alcohol Use: None Hx Recreational Drug Use: No Drugs: None Hx Prescription Drug Abuse: No - Advance Directive Resuscitation Status: Full Code Family History Family History: Malignancy Parental Family History Reviewed: Yes Children Family History Reviewed: Unknown Sibling(s) Family History Reviewed.: Unknown Medication/Allergy Home Medications: Ipratropium/Albuterol Sulfate [Duoneb 3 ml Ampul] 3 ml NEB [id number] PRN 04/27/18 Lisinopril/Hydrochlorothiazide [Lisinopril-Hctz 20-25 mg Tab] 1 each PO DAILY Allergies/Adverse Reactions: hydrocodone Allergy (Severe, Verified 04/27/18 03:02) Pruritis oxycodone Allergy (Intermediate, Verified 04/27/18 03:02) Hallucinations hydromorphone [From Dilaudid] Allergy (Mild, Verified 04/27/18 03:02) Throws up codeine [Codeine] Allergy (Unknown, Verified 04/27/18 03:02) Pruritis Review of Systems Constitutional: ABSENT: fever(s), headache(s), night sweats Eyes: ABSENT: visual disturbances Ears: ABSENT: hearing changes Nose, Mouth, and Throat: ABSENT: mouth pain Cardiovascular: ABSENT: orthropnea, palpitations Respiratory: ABSENT: dyspnea, hemoptysis Gastrointestinal: PRESENT: dysphagia. ABSENT: melena Genitourinary: ABSENT: dysuria, hematuria Musculoskeletal: ABSENT: deformity, joint swelling Integumentary: ABSENT: lesions, pruritus Neurological: ABSENT: syncope, tingling, tremor(s), vertigo Endocrine: ABSENT: polydipsia, polyphagia, polyuria Hematologic/Lymphatic: ABSENT: easy bruising Physical Exam Vital Signs: Temp Pulse Resp BP Pulse Ox 98.3 F 82 12 90/52 L 100 04/29/18 13:43 04/29/18 13:59 04/29/18 13:43 04/29/18 13:43 04/29/18 13:43 Intake & Output 04/28/18 04/29/18 04/30/18 06:59 06:59 06:59 Intake Total 1106 1156 500 Balance 1106 1156 500 Weight 44.2 kg 42.6 kg General appearance: PRESENT: mild distress Head exam: PRESENT: atraumatic, normocephalic Eye exam: PRESENT: EOMI, PERRLA. ABSENT: nystagmus, periorbital swelling, scleral icterus Mouth exam: PRESENT: moist, neck supple Throat exam: ABSENT: tonsillar exudate, tonsillogmegaly Respiratory exam: PRESENT: symmetrical, unlabored. ABSENT: tachypnea, wheezes Cardiovascular exam: PRESENT: irregular rhythm GI/Abdominal exam: PRESENT: soft. ABSENT: rebound, rigid, tenderness Extremities exam: ABSENT: joint swelling Musculoskeletal exam: PRESENT: full ROM Neurological exam: PRESENT: oriented to time, oriented to situation, CN II-XII grossly intact Skin exam: PRESENT: normal color. ABSENT: mottled, pallor, urticaria, vesicles Results Laboratory Results: 04/28/18 04:25 04/29/18 05:06 04/29/18 05:06 Sodium 141.1 Potassium 3.9 Chloride 103 Carbon Dioxide 28 Anion Gap 10 BUN 25 H Creatinine 1.15 Est GFR ( Amer) 57 L Est GFR (Non-Af Amer) 47 L Glucose 78 Calcium 9.6 04/27/18 04/27/18 04/27/18 10:16 16:54 23:10 Troponin I 0.106 0.108 0.098 NT-Pro-B Natriuret Pep 04/28/18 04/29/18 04:25 05:06 Troponin I NT-Pro-B Natriuret Pep 7200 H 6050 H Impressions: Chest X-Ray 04/27/18 02:55 IMPRESSION: Small right pleural effusion. Underlying COPD. Osteopenia 2010 [employer]- All Rights Reserved Chest/Abdomen CTA 04/27/18 03:44 IMPRESSION: Negative for pulmonary embolus, thoracic aortic aneurysm, or dissection. Moderate to severe emphysematous changes. Bilateral pulmonary nodules. Please see below for current Fleischner Society recommendations. Small bibasilar effusions with adjacent atelectasis. 2017 Fleischner Society Recommendations for Multiple Solid Lung Nodules Follow-Up base on size (average of long- and short-axis diameters). Use most suspicious nodule for followup. Nodule Size <6 mm Low-Risk Patient: No routine follow-up Nodule Size <6 mm High-Risk Patient: Optional CT at 12 months Nodule Size 6-8 mm Low-Risk Patient: CT at 3-[address] at 18-24 months Nodule Size 6-8 mm High-Risk Patient: CT at 3-6 months then at 18-24 months Nodule Size (mm) >8 Low-Risk Patient: CT at 3-6 months, then consider CT at 18-24 months Nodule Size (mm) >8 High-Risk Patient: CT at 3-6 months, then at 18-24 months TECHNICAL DOCUMENTATION: Quality ID # [id number]: Final reports with documentation of one or more dose reduction techniques (e.g., Automated exposure control, adjustment of the mA and/or kV according to patient size, use of iterative reconstruction technique) 2010 [employer]- All Rights Reserved Esophagus X-Ray 04/29/18 00:00 IMPRESSION: MUCOSAL FILLING DEFECT SEEN WITHIN THE DISTAL ESOPHAGUS ALONG THE ANTERIOR WALL WHICH MAY REPRESENT RETAINED FOOD MATERIAL ALTHOUGH ESOPHAGEAL MASS IS SUGGESTED. FOLLOW-UP WITH ENDOSCOPY IS RECOMMENDED. . Assessment & Plan - Diagnosis (1) Alcoholic cirrhosis Qualifiers: Ascites presence: without ascites Qualified Code(s): K70.30 - Alcoholic cirrhosis of liver without ascites Is this a current diagnosis for this admission?: Yes Plan: continue to monitor will need EGD to assess for varices (2) Dysphagia Qualifiers: Dysphagia type: unspecified Qualified Code(s): R13.10 - Dysphagia, unspecified Plan: abnormal finding noted on barium swallow with her weight loss and elevated CEA ? possible malignancy further evaluation needed with EGD will plan on doing that in the am (3) Weight loss Plan: will need follow up as well - Time Time Spent: 50 to 70 Minutes
--- NOTE | 2018-04-29 17:29 | Progress Note ---
Provider Note Provider Note: Reviewed records it appears that in 2010 when she was seen by Dr Guerrero, she was in the ICU and had a colonoscopy done it was noted that she had an ascending colon polyp that was seen, it was not removed at that time she could have had had that done in the interim as an outpatient however if there are no records, the ? of whether that polyp could be contributing to the elevated CEA level get records of any procedure reports as outpatient
[2018-04-29] MEDS ORDERED: DULOXETINE HCL 30 MG CAPSULE.DR PO SCH (18:00)
[2018-04-30 04:34] LABS: HEMATOCRIT 38.2 % (36.0-47.0); HEMOGLOBIN 13.3 g/dL (12.0-15.5); MEAN CORPUSCULAR HEMOGLOBIN 34.5 pg (27.0-33.4); MEAN CORPUSCULAR HGB CONC 34.7 g/dL (32.0-36.0); MEAN CORPUSCULAR VOLUME 100 fl (80-97); PLATELET COUNT 156 10^3/uL (150-450); RED BLOOD COUNT 3.84 10^6/uL (3.72-5.28); RED CELL DISTRIBUTION WIDTH 14.8 % (11.5-14.0); WHITE BLOOD COUNT 10.9 10^3/uL (4.0-10.5)
[2018-04-30 05:06] LABS: ANION GAP 13 (5-19); BLOOD UREA NITROGEN 27 mg/dL (7-20); CALCIUM 9.5 mg/dL (8.4-10.2); CARBON DIOXIDE 25 mmol/L (22-30); CHLORIDE 106 mmol/L (98-107); GLUCOSE 99 mg/dL (75-110); SODIUM 144.1 mmol/L (137-145)
[2018-04-30] MEDS: LANSOPRAZOLE 30 MG TAB.RAP.DR PO SCH (05:34)
[2018-04-30] MEDS ORDERED: HYDROMORPHONE HCL INJ/PF 2 MG/ML AMPULE IV PRN (06:48)
--- NOTE | 2018-04-30 07:00 | PDOC PROGRESS REPORT ---
Subjective Progress Note for:: 04/30/18 Subjective:: 1w odynophagia & solid dysphagia. Mid pack pain radiating to L chest lasting seconds. Better sitting up leaning forward. Kept awake. Reason For Visit: HEART FAILURE Physical Exam Vital Signs: Temp Pulse Resp BP Pulse Ox 98.3 F 97 16 110/60 97 04/30/18 04:23 04/30/18 04:23 04/30/18 04:23 04/30/18 04:23 04/30/18 04:23 Intake & Output 04/28/18 04/29/18 04/30/18 07:59 07:59 07:59 Intake Total 1056 1156 1346 Balance 1056 1156 1346 Weight 97 lb 7.109 oz 93 lb 14.671 oz 93 lb 0.561 oz General appearance: PRESENT: severe distress Respiratory exam: PRESENT: clear to auscultation brandee Cardiovascular exam: PRESENT: irregular rhythm, systolic murmur. ABSENT: diastolic murmur Murmur grade: 3 GI/Abdominal exam: ABSENT: mass, organolmegaly, tenderness Extremities exam: ABSENT: pedal edema Neurological exam: PRESENT: oriented to situation Psychiatric exam: PRESENT: anxious Results Laboratory Results: 04/30/18 03:42 04/30/18 03:42 04/30/18 04/30/18 03:42 03:42 WBC 10.9 H RBC 3.84 Hgb 13.3 Hct 38.2 MCV 100 H MCH 34.5 H MCHC 34.7 RDW 14.8 H Plt Count 156 Sodium 144.1 Potassium 4.0 Chloride 106 Carbon Dioxide 25 Anion Gap 13 BUN 27 H Creatinine 0.91 Est GFR ( Amer) > 60 Est GFR (Non-Af Amer) > 60 Glucose 99 Calcium 9.5 04/28/18 04/29/18 04/30/18 04:25 05:06 03:42 Troponin I NT-Pro-B Natriuret Pep 7200 H 6050 H 4450 H Impressions: Chest X-Ray 04/27/18 02:55 IMPRESSION: Small right pleural effusion. Underlying COPD. Osteopenia 2010 [employer]- All Rights Reserved Chest/Abdomen CTA 04/27/18 03:44 IMPRESSION: Negative for pulmonary embolus, thoracic aortic aneurysm, or dissection. Moderate to severe emphysematous changes. Bilateral pulmonary nodules. Please see below for current Fleischner Society recommendations. Small bibasilar effusions with adjacent atelectasis. 2017 Fleischner Society Recommendations for Multiple Solid Lung Nodules Follow-Up base on size (average of long- and short-axis diameters). Use most suspicious nodule for followup. Nodule Size <6 mm Low-Risk Patient: No routine follow-up Nodule Size <6 mm High-Risk Patient: Optional CT at 12 months Nodule Size 6-8 mm Low-Risk Patient: CT at 3-[address] at 18-24 months Nodule Size 6-8 mm High-Risk Patient: CT at 3-6 months then at 18-24 months Nodule Size (mm) >8 Low-Risk Patient: CT at 3-6 months, then consider CT at 18-24 months Nodule Size (mm) >8 High-Risk Patient: CT at 3-6 months, then at 18-24 months TECHNICAL DOCUMENTATION: Quality ID # 436: Final reports with documentation of one or more dose reduction techniques (e.g., Automated exposure control, adjustment of the mA and/or kV according to patient size, use of iterative reconstruction technique) 2010 [employer]- All Rights Reserved Esophagus X-Ray 04/29/18 00:00 IMPRESSION: MUCOSAL FILLING DEFECT SEEN WITHIN THE DISTAL ESOPHAGUS ALONG THE ANTERIOR WALL WHICH MAY REPRESENT RETAINED FOOD MATERIAL ALTHOUGH ESOPHAGEAL MASS IS SUGGESTED. FOLLOW-UP WITH ENDOSCOPY IS RECOMMENDED. . Assessment & Plan - Diagnosis (1) Malignant neoplasm of lower third of esophagus Is this a current diagnosis for this admission?: Yes Plan: Barium swallow showed low esophageal mass vs food. Dr Mari scheduled endoscopy. Morphine 3mg q2h prn. (2) Paroxysmal atrial fibrillation Is this a current diagnosis for this admission?: Yes Plan: intermittant. Stopped diltiazem for hypotension. (3) Acute on chronic diastolic congestive heart failure Is this a current diagnosis for this admission?: Yes Plan: Bnp slightly lower. Stopped furosemide & bolused 500 for hypotension. (4) Nonrheumatic mitral valve insufficiency Is this a current diagnosis for this admission?: Yes (5) Panacinar emphysema Is this a current diagnosis for this admission?: Yes (6) 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 Is this a current diagnosis for this admission?: Yes (7) Alcoholic cirrhosis Qualifiers: Ascites presence: without ascites Qualified Code(s): K70.30 - Alcoholic cirrhosis of liver without ascites Is this a current diagnosis for this admission?: Yes Plan: looking for varices. Avoiding anticoagulation. (8) Acute cystitis Qualifiers: Hematuria presence: without hematuria Qualified Code(s): N30.00 - Acute cystitis without hematuria Is this a current diagnosis for this admission?: Yes - Inpatient Certification Medical Necessity: Failure to Improve With Outpatient Therapy, Significant Comorbidiites Make Outpatient Treatment Too Risky, Need Close Monitoring Due to Risk of Patient Decompensation, Need For IV Fluids, Need For Continuous Telemetry Monitoring, Need for Nebulizer Therapy and Monitoring of Response, Need for Pain Control, Need for IV Antibiotics, Risk of Complication if Not Cared For in Hospital, Risk of Diagnosis Which Will Require Inpatient Eval/Care/ Monitoring
[2018-04-30] MEDS ORDERED: ONDANSETRON HCL INJ/PF 4 MG/2 ML SDV ONE (07:32)
[2018-04-30] MEDS ORDERED: FLUMAZENIL INJ 0.5 MG/5 ML VIAL ONE (07:33)
[2018-04-30] MEDS ORDERED: FENTANYL CITRATE INJ/PF 100 MCG/2 ML AMPUL ONE (07:33)
[2018-04-30] MEDS ORDERED: MIDAZOLAM 2 MG/2 ML INJ ONE (07:33)
[2018-04-30] MEDS ORDERED: NALOXONE HCL INJ/PF 0.4 MG/1 ML SDV ONE (07:33)
[2018-04-30] MEDS ORDERED: EPINEPHRINE INJ 1 MG/10 ML DISP.SYRIN ONE (07:33)
[2018-04-30] MEDS ORDERED: GLUCAGON,HUMAN RECOMB 1 MG INJ ONE (07:33)
[2018-04-30] MEDS: MORPHINE SULFATE 10 MG/ML INJ IV PRN ×2 (07:48→15:03)
--- NOTE | 2018-04-30 07:54 | PDOC PROGRESS REPORT ---
Subjective Progress Note for:: 04/30/18 Subjective:: patient going to have stress test in am depending on results, ? if candidate for EGD today patient to be kept NPO for now will need EGD at some point however due to constraints of time and other procedures taking precedence, may have to defer until tomorrow Reason For Visit: HEART FAILURE Physical Exam Vital Signs: Temp Pulse Resp BP Pulse Ox 98.3 F 97 16 110/60 97 04/30/18 04:23 04/30/18 04:23 04/30/18 04:23 04/30/18 04:23 04/30/18 04:23 Intake & Output 04/29/18 04/30/18 05/01/18 06:59 06:59 06:59 Intake Total 1156 1346 Balance 1156 1346 Weight 42.6 kg 42.2 kg General appearance: PRESENT: no acute distress Head exam: PRESENT: atraumatic, normocephalic Eye exam: PRESENT: EOMI, PERRLA. ABSENT: nystagmus, periorbital swelling, scleral icterus Mouth exam: PRESENT: moist, neck supple Throat exam: ABSENT: tonsillar exudate, tonsillogmegaly Neck exam: ABSENT: meningismus, tenderness, thyromegaly Respiratory exam: PRESENT: symmetrical, tachypnea. ABSENT: wheezes GI/Abdominal exam: PRESENT: soft. ABSENT: rebound, rigid, tenderness Extremities exam: ABSENT: joint swelling Neurological exam: PRESENT: oriented to time, oriented to situation, CN II-XII grossly intact Focused psych exam: ABSENT: restlessness Skin exam: PRESENT: normal color. ABSENT: mottled, pallor, urticaria, vesicles Results Laboratory Results: 04/30/18 03:42 04/30/18 03:42 04/30/18 04/30/18 03:42 03:42 WBC 10.9 H RBC 3.84 Hgb 13.3 Hct 38.2 MCV 100 H MCH 34.5 H MCHC 34.7 RDW 14.8 H Plt Count 156 Sodium 144.1 Potassium 4.0 Chloride 106 Carbon Dioxide 25 Anion Gap 13 BUN 27 H Creatinine 0.91 Est GFR ( Amer) > 60 Est GFR (Non-Af Amer) > 60 Glucose 99 Calcium 9.5 04/27/18 04/27/18 04/27/18 10:16 16:54 23:10 Troponin I 0.106 0.108 0.098 NT-Pro-B Natriuret Pep 04/28/18 04/29/18 04/30/18 04:25 05:06 03:42 Troponin I NT-Pro-B Natriuret Pep 7200 H 6050 H 4450 H Impressions: Chest X-Ray 04/27/18 02:55 IMPRESSION: Small right pleural effusion. Underlying COPD. Osteopenia 2010 [employer]- All Rights Reserved Chest/Abdomen CTA 04/27/18 03:44 IMPRESSION: Negative for pulmonary embolus, thoracic aortic aneurysm, or dissection. Moderate to severe emphysematous changes. Bilateral pulmonary nodules. Please see below for current Fleischner Society recommendations. Small bibasilar effusions with adjacent atelectasis. 2017 Fleischner Society Recommendations for Multiple Solid Lung Nodules Follow-Up base on size (average of long- and short-axis diameters). Use most suspicious nodule for followup. Nodule Size <6 mm Low-Risk Patient: No routine follow-up Nodule Size <6 mm High-Risk Patient: Optional CT at 12 months Nodule Size 6-8 mm Low-Risk Patient: CT at 3-[address] at 18-24 months Nodule Size 6-8 mm High-Risk Patient: CT at 3-6 months then at 18-24 months Nodule Size (mm) >8 Low-Risk Patient: CT at 3-6 months, then consider CT at 18-24 months Nodule Size (mm) >8 High-Risk Patient: CT at 3-6 months, then at 18-24 months TECHNICAL DOCUMENTATION: Quality ID # 436: Final reports with documentation of one or more dose reduction techniques (e.g., Automated exposure control, adjustment of the mA and/or kV according to patient size, use of iterative reconstruction technique) 2010 [employer]- All Rights Reserved Esophagus X-Ray 04/29/18 00:00 IMPRESSION: MUCOSAL FILLING DEFECT SEEN WITHIN THE DISTAL ESOPHAGUS ALONG THE ANTERIOR WALL WHICH MAY REPRESENT RETAINED FOOD MATERIAL ALTHOUGH ESOPHAGEAL MASS IS SUGGESTED. FOLLOW-UP WITH ENDOSCOPY IS RECOMMENDED. . Assessment & Plan - Diagnosis (1) Alcoholic cirrhosis Qualifiers: Ascites presence: without ascites Qualified Code(s): K70.30 - Alcoholic cirrhosis of liver without ascites Is this a current diagnosis for this admission?: Yes (2) Dysphagia Qualifiers: Dysphagia type: unspecified Qualified Code(s): R13.10 - Dysphagia, unspecified Is this a current diagnosis for this admission?: Yes Plan: findings are suspicious for esophageal mass/ lesion since has known history of esophageal cancer will need EGD at some point patient is going to have stress testing this am, it is unclear at the time of this note if her EGD can be done today vs deferring till tomorrow further recommendations to follow - Time Time Spent with patient: 15-24 minutes
--- NOTE | 2018-04-30 10:07 | Progress Note ---
Provider Note Provider Note: Received confirmation from Nuclear [facility] and RN that cardiac testing will likely only be completed later this pm and that results may not be available. will NOT be able to proceed with EGD today clear liquids when patient is done with Cardiology NPO post midnight EGD is reschedule for tomorrow.
[2018-04-30] MEDS: SPIRONOLACTONE 25 MG TABLET PO SCH (11:16)
[2018-04-30] MEDS: LUBIPROSTONE 24 MCG CAPSULE PO SCH ×2 (11:21→17:21)
[2018-04-30] MEDS: ENOXAPARIN SODIUM INJ 40 MG/0.4 ML DISP.SYRIN SUBCUT SCH (11:21)
[2018-04-30] MEDS: ONDANSETRON HCL INJ/PF 4 MG/2 ML SDV IV PRN (14:50)
--- NOTE | 2018-04-30 19:57 | PDOC PROGRESS REPORT ---
Subjective Progress Note for:: 04/30/18 Subjective:: Patient today went down for nuclear imaging however could not lay flat on her back and was noted to have incessant heaving. Patient was therefore sent back and nuclear images could not be performed. Patient to be rescheduled for tomorrow. Patient has noted some chest discomfort but this is mainly on swallowing. She has shortness of breath at rest and currently on oxygen therapy. Patient has significant COPD and emphysema.. Patient denying any PND, orthopnea. Patient denied any sustained palpitations, dizziness, syncope, near syncope. Patient denying any fever chills. Patient denying any other significant discomfort. 2D echo results reviewed. It shows normal LVEF. Patient was felt to be in atrial fibrillation during the echocardiogram. Review of systems: Rest review of systems negative. Medications: Medications have been reviewed. Reason For Visit: HEART FAILURE Physical Exam Vital Signs: Temp Pulse Resp BP Pulse Ox 97.3 F 98 18 103/62 96 04/30/18 16:14 04/30/18 16:14 04/30/18 16:14 04/30/18 16:14 04/30/18 16:14 Intake & Output 04/29/18 04/30/18 05/01/18 06:59 06:59 06:59 Intake Total 1156 1346 444 Balance 1156 1346 444 Weight 42.6 kg 42.2 kg Exam: GENERAL: well-nourished and in no acute distress. Alert and oriented x3 HEAD: Atraumatic, normocephalic. EYES: TAMELA, sclera anicteric, conjunctiva are normal. ENT: Moist mucous membranes. No oral ulcerations or bleeding gums noted. No obvious ear, nose or throat abnormalities noted. NECK: supple without lymphadenopathy. Trachea is central. No cervical or axillary lymphadenopathy noted. Carotids are 2+, JVD WNL LUNGS: Breath sounds bibasilar fine crackles and mild wheezing noted. CHEST: Palpation of the chest wall shows no significant chest wall tenderness. HEART: [place] [employer]IAN, No PSH, 1/6 MARLENE aortic area, 1/6 fabian systolic murmur mitral area, no rubs, no gallops. ABDOMEN: Soft, no significant tenderness appreciated, normoactive bowel sounds. No guarding, no rebound. No rigidity noted . No masses appreciated. EXTREMITIES: Pedal pulses are 1-2+, no calf tenderness noted. No clubbing or cyanosis. negative pedal edema noted NEUROLOGICAL: Focused neurological exam showed no significant neurologic deficit. Normal speech, no focal weakness appreciated. PSYCH: Normal mood, normal affect. Judgment and insight within normal limits. SKIN: No significant ecchymosis, skin is noted to be warm. MUSCULOSKELETAL EXAM: No significant acute joint swelling noted. Results Laboratory Results: 04/30/18 03:42 04/30/18 03:42 04/30/18 04/30/18 03:42 03:42 WBC 10.9 H RBC 3.84 Hgb 13.3 Hct 38.2 MCV 100 H MCH 34.5 H MCHC 34.7 RDW 14.8 H Plt Count 156 Sodium 144.1 Potassium 4.0 Chloride 106 Carbon Dioxide 25 Anion Gap 13 BUN 27 H Creatinine 0.91 Est GFR ( Amer) > 60 Est GFR (Non-Af Amer) > 60 Glucose 99 Calcium 9.5 04/27/18 04/27/18 04/27/18 10:16 16:54 23:10 Troponin I 0.106 0.108 0.098 NT-Pro-B Natriuret Pep 04/28/18 04/29/18 04/30/18 04:25 05:06 03:42 Troponin I NT-Pro-B Natriuret Pep 7200 H 6050 H 4450 H EKG Comments: Telemetry shows sinus rhythm without any sustained tachycardia or bradycardia Impressions: Chest X-Ray 04/27/18 02:55 IMPRESSION: Small right pleural effusion. Underlying COPD. Osteopenia 2010 [employer]- All Rights Reserved Chest/Abdomen CTA 04/27/18 03:44 IMPRESSION: Negative for pulmonary embolus, thoracic aortic aneurysm, or dissection. Moderate to severe emphysematous changes. Bilateral pulmonary nodules. Please see below for current Fleischner Society recommendations. Small bibasilar effusions with adjacent atelectasis. 2017 Fleischner Society Recommendations for Multiple Solid Lung Nodules Follow-Up base on size (average of long- and short-axis diameters). Use most suspicious nodule for followup. Nodule Size <6 mm Low-Risk Patient: No routine follow-up Nodule Size <6 mm High-Risk Patient: Optional CT at 12 months Nodule Size 6-8 mm Low-Risk Patient: CT at 3-[address] at 18-24 months Nodule Size 6-8 mm High-Risk Patient: CT at 3-6 months then at 18-24 months Nodule Size (mm) >8 Low-Risk Patient: CT at 3-6 months, then consider CT at 18-24 months Nodule Size (mm) >8 High-Risk Patient: CT at 3-6 months, then at 18-24 months TECHNICAL DOCUMENTATION: Quality ID # [id number]: Final reports with documentation of one or more dose reduction techniques (e.g., Automated exposure control, adjustment of the mA and/or kV according to patient size, use of iterative reconstruction technique) 2010 [employer]- All Rights Reserved Esophagus X-Ray 04/29/18 00:00 IMPRESSION: MUCOSAL FILLING DEFECT SEEN WITHIN THE DISTAL ESOPHAGUS ALONG THE ANTERIOR WALL WHICH MAY REPRESENT RETAINED FOOD MATERIAL ALTHOUGH ESOPHAGEAL MASS IS SUGGESTED. FOLLOW-UP WITH ENDOSCOPY IS RECOMMENDED. . Assessment & Plan - Diagnosis (1) Acute on chronic diastolic congestive heart failure Is this a current diagnosis for this admission?: Yes (2) Bilateral pleural effusion Is this a current diagnosis for this admission?: Yes (3) Elevated brain natriuretic peptide (BNP) level Is this a current diagnosis for this admission?: Yes (4) Elevated troponin Is this a current diagnosis for this admission?: Yes (5) Nonrheumatic mitral valve insufficiency Is this a current diagnosis for this admission?: Yes (6) Panacinar emphysema Is this a current diagnosis for this admission?: Yes - Notes Notes: Acute on chronic diastolic heart failure: This has improved. Continue current therapeutic regimen. Bilateral pleural effusion: Possibly related to congestive heart failure. Continue Lasix. Continue spironolactone.. Elevated BNP level: Part and parcel of CHF. Elevated troponin I: Patient came down for nuclear stress test but could not be completed because of excessive heaving. To be rescheduled for tomorrow. Mitral valve regurgitation: Patient noted to have moderate mitral regurgitation. This was on echocardiogram obtained yesterday. Patient will need periodic echocardiograms as mitral regurgitation can progress asymptomatically. Emphysema: Patient already has quit smoking. Continue with bronchodilator therapy and steroid therapy as needed. - Time Time with patient: Greater than 35 minutes - More than 50% of the time spent coordinating care, discussing management plans with involved caregivers. Management plans discussed with involved personnels. Medical decision making was of moderate to high complexity, patient's has multiple comorbidities. Medications reviewed and adjusted accordingly: Yes
[2018-05-01] MEDS ORDERED: PROMETHAZINE HCL 25 MG TABLET PO PRN (05:26)
[2018-05-01 05:51] LABS: ANION GAP 11 (5-19); BLOOD UREA NITROGEN 34 mg/dL (7-20); CALCIUM 9.6 mg/dL (8.4-10.2); CARBON DIOXIDE 30 mmol/L (22-30); CHLORIDE 105 mmol/L (98-107); GLUCOSE 103 mg/dL (75-110); SODIUM 145.9 mmol/L (137-145)
[2018-05-01] MEDS: LANSOPRAZOLE 30 MG TAB.RAP.DR PO SCH (06:33)
[2018-05-01] MEDS: ONDANSETRON HCL INJ/PF 4 MG/2 ML SDV IV PRN (07:23)
[2018-05-01] MEDS: ACETAMINOPHEN 325 MG TABLET PO PRN (07:32)
[2018-05-01] MEDS ORDERED: DEXTROSE 5%-1/2 NORMAL SALINE 1,000 ML IV PRN (07:34)
--- NOTE | 2018-05-01 07:40 | PDOC PROGRESS REPORT ---
Subjective Progress Note for:: 05/01/18 Subjective:: too nauseated to lie still for nuc yesterday. Blames duloxetine from day before. Nausea gone. Hungry. Subxyphoid pain terrible. Morphine 3mg put her to sleep but did not nauseate. Reason For Visit: HEART FAILURE Physical Exam Vital Signs: Temp Pulse Resp BP Pulse Ox 97.5 F 110 H 16 111/63 98 05/01/18 04:00 05/01/18 04:00 05/01/18 04:00 05/01/18 04:00 05/01/18 04:00 Intake & Output 04/29/18 04/30/18 05/01/18 07:59 07:59 07:59 Intake Total 1156 1346 846 Balance 1156 1346 846 Weight 93 lb 14.671 oz 93 lb 0.561 oz 91 lb 0.815 oz General appearance: PRESENT: mild distress Respiratory exam: PRESENT: clear to auscultation brandee Cardiovascular exam: PRESENT: systolic murmur. ABSENT: diastolic murmur, irregular rhythm Murmur grade: 1 GI/Abdominal exam: ABSENT: mass, organolmegaly, tenderness Extremities exam: ABSENT: pedal edema Neurological exam: PRESENT: alert Psychiatric exam: PRESENT: anxious Results Laboratory Results: 04/30/18 03:42 05/01/18 04:21 05/01/18 04:21 Sodium 145.9 H Potassium 4.0 Chloride 105 Carbon Dioxide 30 Anion Gap 11 BUN 34 H Creatinine 1.01 Est GFR ( Amer) > 60 Est GFR (Non-Af Amer) 54 L Glucose 103 Calcium 9.6 04/28/18 04/29/18 04/30/18 04:25 05:06 03:42 Troponin I NT-Pro-B Natriuret Pep 7200 H 6050 H 4450 H Impressions: Chest X-Ray 04/27/18 02:55 IMPRESSION: Small right pleural effusion. Underlying COPD. Osteopenia 2010 [employer]- All Rights Reserved Chest/Abdomen CTA 04/27/18 03:44 IMPRESSION: Negative for pulmonary embolus, thoracic aortic aneurysm, or dissection. Moderate to severe emphysematous changes. Bilateral pulmonary nodules. Please see below for current Fleischner Society recommendations. Small bibasilar effusions with adjacent atelectasis. 2017 Fleischner Society Recommendations for Multiple Solid Lung Nodules Follow-Up base on size (average of long- and short-axis diameters). Use most suspicious nodule for followup. Nodule Size <6 mm Low-Risk Patient: No routine follow-up Nodule Size <6 mm High-Risk Patient: Optional CT at 12 months Nodule Size 6-8 mm Low-Risk Patient: CT at 3-[address] at 18-24 months Nodule Size 6-8 mm High-Risk Patient: CT at 3-6 months then at 18-24 months Nodule Size (mm) >8 Low-Risk Patient: CT at 3-6 months, then consider CT at 18-24 months Nodule Size (mm) >8 High-Risk Patient: CT at 3-6 months, then at 18-24 months TECHNICAL DOCUMENTATION: Quality ID # [id number]: Final reports with documentation of one or more dose reduction techniques (e.g., Automated exposure control, adjustment of the mA and/or kV according to patient size, use of iterative reconstruction technique) 2010 [employer]- All Rights Reserved Esophagus X-Ray 04/29/18 00:00 IMPRESSION: MUCOSAL FILLING DEFECT SEEN WITHIN THE DISTAL ESOPHAGUS ALONG THE ANTERIOR WALL WHICH MAY REPRESENT RETAINED FOOD MATERIAL ALTHOUGH ESOPHAGEAL MASS IS SUGGESTED. FOLLOW-UP WITH ENDOSCOPY IS RECOMMENDED. . Assessment & Plan - Diagnosis (1) Malignant neoplasm of lower third of esophagus Is this a current diagnosis for this admission?: Yes Plan: Escop after nuc. Promethazine. (2) Paroxysmal atrial fibrillation Is this a current diagnosis for this admission?: Yes Plan: diltiazem when bp up. Has been 90-110 (3) Acute on chronic diastolic congestive heart failure Is this a current diagnosis for this admission?: Yes Plan: bun up to 34 npo. D5half (4) Nonrheumatic mitral valve insufficiency Is this a current diagnosis for this admission?: Yes (5) Panacinar emphysema Is this a current diagnosis for this admission?: Yes (6) 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 Is this a current diagnosis for this admission?: Yes (7) Alcoholic cirrhosis Qualifiers: Ascites presence: without ascites Qualified Code(s): K70.30 - Alcoholic cirrhosis of liver without ascites Is this a current diagnosis for this admission?: Yes (8) Acute cystitis Qualifiers: Hematuria presence: without hematuria Qualified Code(s): N30.00 - Acute cystitis without hematuria Is this a current diagnosis for this admission?: Yes - Inpatient Certification Medical Necessity: Failure to Improve With Outpatient Therapy, Significant Comorbidiites Make Outpatient Treatment Too Risky, Need Close Monitoring Due to Risk of Patient Decompensation, Need For IV Fluids, Need For Continuous Telemetry Monitoring, Need for Nebulizer Therapy and Monitoring of Response, Need for Pain Control, Need for IV Antibiotics, Need for Surgery, Risk of Complication if Not Cared For in Hospital, Risk of Diagnosis Which Will Require Inpatient Eval/Care/Monitoring
[2018-05-01] MEDS: MORPHINE SULFATE 10 MG/ML INJ IV PRN (10:50)
[2018-05-01] MEDS: SPIRONOLACTONE 25 MG TABLET PO SCH (11:00)
[2018-05-01] MEDS: LUBIPROSTONE 24 MCG CAPSULE PO SCH ×2 (11:01→17:21)
[2018-05-01] MEDS: ENOXAPARIN SODIUM INJ 40 MG/0.4 ML DISP.SYRIN SUBCUT SCH (11:01)
[2018-05-01] MEDS ORDERED: ONDANSETRON HCL INJ/PF 4 MG/2 ML SDV ONE (12:33)
[2018-05-01] MEDS ORDERED: MIDAZOLAM 2 MG/2 ML INJ ONE (12:34)
[2018-05-01] MEDS ORDERED: NALOXONE HCL INJ/PF 0.4 MG/1 ML SDV ONE (12:34)
[2018-05-01] MEDS ORDERED: FENTANYL CITRATE INJ/PF 100 MCG/2 ML AMPUL ONE (12:34)
[2018-05-01] MEDS ORDERED: FLUMAZENIL INJ 0.5 MG/5 ML VIAL ONE (12:34)
[2018-05-01] MEDS ORDERED: GLUCAGON,HUMAN RECOMB 1 MG INJ ONE (12:35)
[2018-05-01] MEDS ORDERED: EPINEPHRINE INJ 1 MG/10 ML DISP.SYRIN ONE (12:35)
--- NOTE | 2018-05-01 13:04 | Operative Report ---
Operative Report DATE OF SURGERY: 05/01/18 Operative Report: The risks benefits and alternatives of the procedure explained to the patient in detail and informed consent is obtained.A GIF Olympus video scope was inserted into the patient's mouth and hypopharynx, the esophagus is identified intubated and insufflated, the scope was then advanced through the esophagus stomach and duodenum, retroflexion maneuver is done, the esophagus stomach and first and second portions of the duodenum examined PREOPERATIVE DIAGNOSIS: Abnormal barium swallow POSTOPERATIVE DIAGNOSIS: Distal esophageal mass/thickening likely consistent with malignancy status post biopsy. Nonobstructive in nature. Hiatal hernia. Schatzki's ring. Gastritis status post biopsy rule out Helicobacter pylori OPERATION: EGD with biopsy SURGEON: CHARISSE HICKMAN ANESTHESIA: Moderate Sedation - 2 mg of Versed. Conscious sedation monitoring time 30 minutes. TISSUE REMOVED OR ALTERED: As noted above. COMPLICATIONS: None. ESTIMATED BLOOD LOSS: None. INTRAOPERATIVE FINDINGS: As noted above. PROCEDURE: Patient tolerated the procedure well. No immediate postprocedure complications are noted. Patient discharged back to her room in good condition. Resume previous activity level, diet and medications. We will wait on biopsies. She may need stent placement at a tertiary institution. Consult hematology oncology if not already done
--- NOTE | 2018-05-01 18:56 | PDOC PROGRESS REPORT ---
Subjective Progress Note for:: 05/01/18 Subjective:: Patient got injected with technetium sestamibi compound in preparation for nuclear stress test but subsequently she is declined to go down to be managed. I did write a short note in the chart clearing patient from cardiac standpoint for endoscopy surgery. I also talked with Dr. Morrow regarding patient risk which was felt to be somewhat increased primarily due to general debility and pulmonary status. She has shortness of breath at rest and currently on oxygen therapy. Patient has significant COPD and emphysema.. Patient denying any PND , orthopnea. Patient denied any sustained palpitations, dizziness, syncope, near syncope. Patient denying any fever chills. Patient denying any other significant discomfort. 2D echo results reviewed. It shows normal LVEF. Patient was felt to be in atrial fibrillation during the echocardiogram. Review of systems: Rest review of systems negative. Medications: Medications have been reviewed. Reason For Visit: HEART FAILURE Physical Exam Vital Signs: Temp Pulse Resp BP Pulse Ox 97.3 F 103 H 23 H 114/67 94 05/01/18 13:13 05/01/18 14:00 05/01/18 13:25 05/01/18 13:25 05/01/18 13:25 Intake & Output 04/30/18 05/01/18 05/02/18 06:59 06:59 06:59 Intake Total 1346 846 102 Balance 1346 846 102 Weight 42.2 kg 41.3 kg Exam: GENERAL: well-nourished and in no acute distress. Alert and oriented x3 HEAD: Atraumatic, normocephalic. EYES: TAMELA, sclera anicteric, conjunctiva are normal. ENT: Moist mucous membranes. No oral ulcerations or bleeding gums noted. No obvious ear, nose or throat abnormalities noted. NECK: supple without lymphadenopathy. Trachea is central. No cervical or axillary lymphadenopathy noted. Carotids are 2+, JVD WNL LUNGS: Bilateral scattered wheezes rales or rhonchi noted. No significant dullness noted on percussion. CHEST: Palpation of the chest wall shows no significant chest wall tenderness. HEART: [place] [employer], No PSH, 1/6 MARLENE aortic area, 1/6 fabian systolic murmur mitral area, no rubs, no gallops. ABDOMEN: Soft, no significant tenderness appreciated, normoactive bowel sounds. No guarding, no rebound. No rigidity noted . No masses appreciated. EXTREMITIES: Pedal pulses are 1-2+, no calf tenderness noted. No clubbing or cyanosis. negative pedal edema noted NEUROLOGICAL: Focused neurological exam showed no significant neurologic deficit. Normal speech, no focal weakness appreciated. PSYCH: Normal mood, normal affect. Judgment and insight within normal limits. SKIN: No significant ecchymosis, skin is noted to be warm. MUSCULOSKELETAL EXAM: No significant acute joint swelling noted. Results Laboratory Results: 04/30/18 03:42 05/01/18 04:21 05/01/18 04:21 Sodium 145.9 H Potassium 4.0 Chloride 105 Carbon Dioxide 30 Anion Gap 11 BUN 34 H Creatinine 1.01 Est GFR ( Amer) > 60 Est GFR (Non-Af Amer) 54 L Glucose 103 Calcium 9.6 04/27/18 04/27/18 04/27/18 10:16 16:54 23:10 Troponin I 0.106 0.108 0.098 NT-Pro-B Natriuret Pep 04/28/18 04/29/18 04/30/18 04:25 05:06 03:42 Troponin I NT-Pro-B Natriuret Pep 7200 H 6050 H 4450 H EKG Comments: Shows sinus rhythm without any sustained tachycardia or bradycardia. Impressions: Chest X-Ray 04/27/18 02:55 IMPRESSION: Small right pleural effusion. Underlying COPD. Osteopenia 2010 [employer]- All Rights Reserved Chest/Abdomen CTA 04/27/18 03:44 IMPRESSION: Negative for pulmonary embolus, thoracic aortic aneurysm, or dissection. Moderate to severe emphysematous changes. Bilateral pulmonary nodules. Please see below for current Fleischner Society recommendations. Small bibasilar effusions with adjacent atelectasis. 2017 Fleischner Society Recommendations for Multiple Solid Lung Nodules Follow-Up base on size (average of long- and short-axis diameters). Use most suspicious nodule for followup. Nodule Size <6 mm Low-Risk Patient: No routine follow-up Nodule Size <6 mm High-Risk Patient: Optional CT at 12 months Nodule Size 6-8 mm Low-Risk Patient: CT at 3-[address] at 18-24 months Nodule Size 6-8 mm High-Risk Patient: CT at 3-6 months then at 18-24 months Nodule Size (mm) >8 Low-Risk Patient: CT at 3-6 months, then consider CT at 18-24 months Nodule Size (mm) >8 High-Risk Patient: CT at 3-6 months, then at 18-24 months TECHNICAL DOCUMENTATION: Quality ID # 436: Final reports with documentation of one or more dose reduction techniques (e.g., Automated exposure control, adjustment of the mA and/or kV according to patient size, use of iterative reconstruction technique) 2010 [employer]- All Rights Reserved Esophagus X-Ray 04/29/18 00:00 IMPRESSION: MUCOSAL FILLING DEFECT SEEN WITHIN THE DISTAL ESOPHAGUS ALONG THE ANTERIOR WALL WHICH MAY REPRESENT RETAINED FOOD MATERIAL ALTHOUGH ESOPHAGEAL MASS IS SUGGESTED. FOLLOW-UP WITH ENDOSCOPY IS RECOMMENDED. . Assessment & Plan - Diagnosis (1) Acute on chronic diastolic congestive heart failure Is this a current diagnosis for this admission?: Yes (2) Bilateral pleural effusion Is this a current diagnosis for this admission?: Yes (3) Elevated brain natriuretic peptide (BNP) level Is this a current diagnosis for this admission?: Yes (4) Elevated troponin Is this a current diagnosis for this admission?: Yes (5) Nonrheumatic mitral valve insufficiency Is this a current diagnosis for this admission?: Yes (6) Panacinar emphysema Is this a current diagnosis for this admission?: Yes - Notes Notes: Patient once again declined to undergo nuclear stress test even after being injected with technetium sestamibi for compound. A short note was entered into the chart clearing patient for endoscopy procedure. I also talked with Dr. Morrow. At this point patient seems to be in his stable cardiac regimen. We will continue to follow until discharge. It seems patient may have esophageal malignancy. Biopsy report however is pending. Acute on chronic diastolic heart failure: This has improved. Continue current therapeutic regimen. Bilateral pleural effusion: Possibly related to congestive heart failure. Continue Lasix. Continue spironolactone.. Elevated BNP level: Part and parcel of CHF. Elevated troponin I: Patient came down for nuclear stress test but could not be completed because of excessive heaving. To be rescheduled for tomorrow. Mitral valve regurgitation: Patient noted to have moderate mitral regurgitation. This was on echocardiogram obtained yesterday. Patient will need periodic echocardiograms as mitral regurgitation can progress asymptomatically. Emphysema: Patient already has quit smoking. Continue with bronchodilator therapy and steroid therapy as needed. - Time Time with patient: 15-25 minutes Medications reviewed and adjusted accordingly: Yes
[2018-05-02] MEDS: MORPHINE SULFATE 10 MG/ML INJ IV PRN (00:12)
[2018-05-02 05:17] LABS: HEMATOCRIT 37.1 % (36.0-47.0); HEMOGLOBIN 12.5 g/dL (12.0-15.5); MEAN CORPUSCULAR HGB CONC 33.7 g/dL (32.0-36.0); MEAN CORPUSCULAR VOLUME 101 fl (80-97); PLATELET COUNT 138 10^3/uL (150-450); RED BLOOD COUNT 3.68 10^6/uL (3.72-5.28); RED CELL DISTRIBUTION WIDTH 14.9 % (11.5-14.0); WHITE BLOOD COUNT 11.2 10^3/uL (4.0-10.5)
[2018-05-02] MEDS: LANSOPRAZOLE 30 MG TAB.RAP.DR PO SCH (05:43)
[2018-05-02 05:50] LABS: ANION GAP 9 (5-19); BLOOD UREA NITROGEN 28 mg/dL (7-20); CALCIUM 9.5 mg/dL (8.4-10.2); CARBON DIOXIDE 29 mmol/L (22-30); CHLORIDE 107 mmol/L (98-107); GLUCOSE 117 mg/dL (75-110); POTASSIUM 4.1 mmol/L (3.6-5.0); SODIUM 145.3 mmol/L (137-145)
--- NOTE | 2018-05-02 08:17 | PDOC PROGRESS REPORT ---
Subjective Progress Note for:: 05/02/18 Subjective:: Denies dyspnea pain anorexia. Wants to avoid J tube this time if cancer has recurred. Reason For Visit: HEART FAILURE Physical Exam Vital Signs: Temp Pulse Resp BP Pulse Ox 97.7 F 70 16 113/76 93 05/02/18 03:36 05/02/18 07:00 05/02/18 03:36 05/02/18 03:36 05/02/18 03:36 Intake & Output 04/30/18 05/01/18 05/02/18 07:59 07:59 07:59 Intake Total 1346 846 457 Balance 1346 846 457 Weight 93 lb 0.561 oz 91 lb 0.815 oz 91 lb 0.815 oz General appearance: PRESENT: no acute distress Respiratory exam: PRESENT: clear to auscultation brandee Cardiovascular exam: PRESENT: systolic murmur, tachycardia - run of [id number] on monitor while I was here. ABSENT: diastolic murmur, irregular rhythm Murmur grade: 2 GI/Abdominal exam: ABSENT: mass, organolmegaly, tenderness Extremities exam: ABSENT: pedal edema Neurological exam: PRESENT: alert. ABSENT: oriented to situation Psychiatric exam: PRESENT: anxious Results Laboratory Results: 05/02/18 05:00 05/02/18 05:00 05/02/18 05/02/18 05:00 05:00 WBC 11.2 H RBC 3.68 L Hgb 12.5 Hct 37.1 MCV 101 H MCH 34.0 H MCHC 33.7 RDW 14.9 H Plt Count 138 L Sodium 145.3 H Potassium 4.1 Chloride 107 Carbon Dioxide 29 Anion Gap 9 BUN 28 H Creatinine 0.98 Est GFR ( Amer) > 60 Est GFR (Non-Af Amer) 56 L Glucose 117 H Calcium 9.5 Impressions: Chest X-Ray 04/27/18 02:55 IMPRESSION: Small right pleural effusion. Underlying COPD. Osteopenia 2010 [employer]- All Rights Reserved Chest/Abdomen CTA 04/27/18 03:44 IMPRESSION: Negative for pulmonary embolus, thoracic aortic aneurysm, or dissection. Moderate to severe emphysematous changes. Bilateral pulmonary nodules. Please see below for current Fleischner Society recommendations. Small bibasilar effusions with adjacent atelectasis. 2017 Fleischner Society Recommendations for Multiple Solid Lung Nodules Follow-Up base on size (average of long- and short-axis diameters). Use most suspicious nodule for followup. Nodule Size <6 mm Low-Risk Patient: No routine follow-up Nodule Size <6 mm High-Risk Patient: Optional CT at 12 months Nodule Size 6-8 mm Low-Risk Patient: CT at 3-[address] at 18-24 months Nodule Size 6-8 mm High-Risk Patient: CT at 3-6 months then at 18-24 months Nodule Size (mm) >8 Low-Risk Patient: CT at 3-6 months, then consider CT at 18-24 months Nodule Size (mm) >8 High-Risk Patient: CT at 3-6 months, then at 18-24 months TECHNICAL DOCUMENTATION: Quality ID # 436: Final reports with documentation of one or more dose reduction techniques (e.g., Automated exposure control, adjustment of the mA and/or kV according to patient size, use of iterative reconstruction technique) 2010 [employer]- All Rights Reserved Esophagus X-Ray 04/29/18 00:00 IMPRESSION: MUCOSAL FILLING DEFECT SEEN WITHIN THE DISTAL ESOPHAGUS ALONG THE ANTERIOR WALL WHICH MAY REPRESENT RETAINED FOOD MATERIAL ALTHOUGH ESOPHAGEAL MASS IS SUGGESTED. FOLLOW-UP WITH ENDOSCOPY IS RECOMMENDED. . Assessment & Plan - Diagnosis (1) Malignant neoplasm of lower third of esophagus Is this a current diagnosis for this admission?: Yes Plan: awaiting path report from biopsy of distal esophageal mass. May need stent. (2) Paroxysmal atrial fibrillation Is this a current diagnosis for this admission?: Yes Plan: try diltiazem 30bid again if bp tolerates it. Consider amiodarone. (3) Acute on chronic diastolic congestive heart failure Is this a current diagnosis for this admission?: Yes Plan: bun coming back down on [id number] (4) Nonrheumatic mitral valve insufficiency Is this a current diagnosis for this admission?: Yes (5) Panacinar emphysema Is this a current diagnosis for this admission?: Yes (6) 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 Is this a current diagnosis for this admission?: Yes (7) Alcoholic cirrhosis Qualifiers: Ascites presence: without ascites Qualified Code(s): K70.30 - Alcoholic cirrhosis of liver without ascites Is this a current diagnosis for this admission?: Yes (8) Acute cystitis Qualifiers: Hematuria presence: without hematuria Qualified Code(s): N30.00 - Acute cystitis without hematuria Is this a current diagnosis for this admission?: Yes - Inpatient Certification Medical Necessity: Significant Comorbidiites Make Outpatient Treatment Too Risky , Need Close Monitoring Due to Risk of Patient Decompensation, Need For IV Fluids, Need For Continuous Telemetry Monitoring, Need for Nebulizer Therapy and Monitoring of Response, Need for Pain Control, Need for IV Antibiotics, Risk of Complication if Not Cared For in Hospital, Risk of Diagnosis Which Will Require Inpatient Eval/Care/Monitoring
[2018-05-02] MEDS: LUBIPROSTONE 24 MCG CAPSULE PO SCH ×2 (09:35→17:00)
[2018-05-02] MEDS: ENOXAPARIN SODIUM INJ 40 MG/0.4 ML DISP.SYRIN SUBCUT SCH (09:35)
[2018-05-02] MEDS: FOLIC ACID 1 MG TABLET PO SCH (09:39)
[2018-05-02] MEDS: MULTIVITAMINS W-IRON TABLET, CHEWABLE PO SCH (09:39)
[2018-05-02] MEDS: THIAMINE HCL 100 MG TABLET PO SCH (09:39)
[2018-05-02] MEDS: SPIRONOLACTONE 25 MG TABLET PO SCH (09:39)
--- NOTE | 2018-05-02 12:35 | PDOC PROGRESS REPORT ---
Subjective Progress Note for:: 05/02/18 Subjective:: Was called by Dr Cazares of pathology she confirms the presence of esophageal malignancy it apparently may be a recurrence patient may need stent placement if she does not want feeding tube placement however she will need to be transferred to a tertiary institution for this to be done no post procedure complications from the procedure are noted Reason For Visit: HEART FAILURE Physical Exam Vital Signs: Temp Pulse Resp BP Pulse Ox 97.2 F 110 H 16 121/55 L 83 L 05/02/18 12:02 05/02/18 12:02 05/02/18 12:02 05/02/18 12:02 05/02/18 08:22 Intake & Output 05/01/18 05/02/18 05/03/18 06:59 06:59 06:59 Intake Total 846 457 Balance 846 457 Weight 41.3 kg 41.3 kg General appearance: PRESENT: no acute distress, thin Head exam: PRESENT: atraumatic, normocephalic Eye exam: PRESENT: EOMI, PERRLA. ABSENT: nystagmus, scleral icterus Mouth exam: PRESENT: moist, neck supple Throat exam: ABSENT: tonsillar exudate, tonsillogmegaly Neck exam: ABSENT: meningismus, tenderness, thyromegaly Respiratory exam: PRESENT: symmetrical, unlabored. ABSENT: tachypnea Cardiovascular exam: PRESENT: +S1, +S2 GI/Abdominal exam: PRESENT: soft. ABSENT: rebound, rigid, tenderness Extremities exam: ABSENT: joint swelling Neurological exam: PRESENT: oriented to time, oriented to situation, CN II-XII grossly intact Focused psych exam: ABSENT: restlessness Skin exam: PRESENT: normal color. ABSENT: mottled, pallor, urticaria, vesicles Results Laboratory Results: 05/02/18 05:00 05/02/18 05:00 05/02/18 05/02/18 05:00 05:00 WBC 11.2 H RBC 3.68 L Hgb 12.5 Hct 37.1 MCV 101 H MCH 34.0 H MCHC 33.7 RDW 14.9 H Plt Count 138 L Sodium 145.3 H Potassium 4.1 Chloride 107 Carbon Dioxide 29 Anion Gap 9 BUN 28 H Creatinine 0.98 Est GFR ( Amer) > 60 Est GFR (Non-Af Amer) 56 L Glucose 117 H Calcium 9.5 11/10/0904/27/18 04/27/18 10:16 16:54 23:10 Troponin I 0.106 0.108 0.098 NT-Pro-B Natriuret Pep 04/28/18 04/29/18 04/30/18 04:25 05:06 03:42 Troponin I NT-Pro-B Natriuret Pep 7200 H 6050 H 4450 H Impressions: Chest X-Ray 04/27/18 02:55 IMPRESSION: Small right pleural effusion. Underlying COPD. Osteopenia 2010 [employer]- All Rights Reserved Chest/Abdomen CTA 04/27/18 03:44 IMPRESSION: Negative for pulmonary embolus, thoracic aortic aneurysm, or dissection. Moderate to severe emphysematous changes. Bilateral pulmonary nodules. Please see below for current Fleischner Society recommendations. Small bibasilar effusions with adjacent atelectasis. 2017 Fleischner Society Recommendations for Multiple Solid Lung Nodules Follow-Up base on size (average of long- and short-axis diameters). Use most suspicious nodule for followup. Nodule Size <6 mm Low-Risk Patient: No routine follow-up Nodule Size <6 mm High-Risk Patient: Optional CT at 12 months Nodule Size 6-8 mm Low-Risk Patient: CT at 3-[address] at 18-24 months Nodule Size 6-8 mm High-Risk Patient: CT at 3-6 months then at 18-24 months Nodule Size (mm) >8 Low-Risk Patient: CT at 3-6 months, then consider CT at 18-24 months Nodule Size (mm) >8 High-Risk Patient: CT at 3-6 months, then at 18-24 months TECHNICAL DOCUMENTATION: Quality ID # [id number]: Final reports with documentation of one or more dose reduction techniques (e.g., Automated exposure control, adjustment of the mA and/or kV according to patient size, use of iterative reconstruction technique) 2010 [employer]- All Rights Reserved Esophagus X-Ray 04/29/18 00:00 IMPRESSION: MUCOSAL FILLING DEFECT SEEN WITHIN THE DISTAL ESOPHAGUS ALONG THE ANTERIOR WALL WHICH MAY REPRESENT RETAINED FOOD MATERIAL ALTHOUGH ESOPHAGEAL MASS IS SUGGESTED. FOLLOW-UP WITH ENDOSCOPY IS RECOMMENDED. . Assessment & Plan - Diagnosis (1) Alcoholic cirrhosis Qualifiers: Ascites presence: without ascites Qualified Code(s): K70.30 - Alcoholic cirrhosis of liver without ascites Is this a current diagnosis for this admission?: Yes (2) Dysphagia Qualifiers: Dysphagia type: unspecified Qualified Code(s): R13.10 - Dysphagia, unspecified Is this a current diagnosis for this admission?: Yes Plan: recurrence of esophageal cancer patient may need stent placement however not able to be done here she should be able to tolerate clears will follow up as needed ? heme onc consult vs previous work up - Time Time Spent with patient: 15-24 minutes
[2018-05-02] MEDS ORDERED: FENTANYL 25 MCG/HR PATCH.TD72 TD SCH (13:30)
[2018-05-02] MEDS: DILTIAZEM HCL 30 MG TABLET PO SCH ×2 (14:36→21:42)
[2018-05-02 17:49] LABS: APPEARANCE,URINE CLOUDY; BILIRUBIN,URINE NEGATIVE (NEGATIVE); COLOR,URINE AMBER; GLUCOSE, URINE NEGATIVE (NEGATIVE); KETONES,URINE NEGATIVE (NEGATIVE); LEUKOCYTE ESTERASE,URINE LARGE (NEGATIVE); NITRITE,URINE NEGATIVE (NEGATIVE); PROTEIN,URINE NEGATIVE (NEGATIVE); URINE SPECIFIC GRAVITY 1.019
--- NOTE | 2018-05-02 18:27 | PDOC PROGRESS REPORT ---
Subjective Progress Note for:: 05/02/18 Subjective:: Patient now diagnosed to have esophageal malignancy. Feel that the chest pain could be related to that. Do not feel patient will be a candidate for ischemia workup now that she is noted to have esophageal malignancy and that may need to be taken care of first. At this point will only recommend medical management for presumed underlying CAD. She has shortness of breath at rest and currently on oxygen therapy. Patient has significant COPD and emphysema.. Patient denying any PND, orthopnea. Patient denied any sustained palpitations, dizziness, syncope, near syncope. Patient denying any fever chills. Patient denying any other significant discomfort. 2D echo results reviewed. It shows normal LVEF. Patient did not go down at all for nuclear stress test and currently refusing to pursue any cardiac evaluation. Review of systems: Rest review of systems negative. Medications: Medications have been reviewed. Reason For Visit: HEART FAILURE Physical Exam Vital Signs: Temp Pulse Resp BP Pulse Ox 98.5 F 110 H 16 126/65 H 91 L 05/02/18 15:24 05/02/18 15:24 05/02/18 15:24 05/02/18 15:24 05/02/18 15:24 Intake & Output 05/01/18 05/02/18 05/03/18 06:59 06:59 06:59 Intake Total 846 457 300 Balance 846 457 300 Weight 41.3 kg 41.3 kg Exam: GENERAL: Underweight and seems somewhat cachectic and in no acute distress. Alert and oriented x3 HEAD: Atraumatic, normocephalic. EYES: TAMELA, sclera anicteric, conjunctiva are normal. ENT: Moist mucous membranes. No oral ulcerations or bleeding gums noted. No obvious ear, nose or throat abnormalities noted. NECK: supple without lymphadenopathy. Trachea is central. No cervical or axillary lymphadenopathy noted. Carotids are 2+, JVD WNL LUNGS: Bilateral scattered wheezes rales or rhonchi noted. No significant dullness noted on percussion. CHEST: Palpation of the chest wall shows no significant chest wall tenderness. HEART: [place] [employer]ENDANT, No PSH, 1/6 MARLENE aortic area, 1/6 fabian systolic murmur mitral area, no rubs, no gallops. ABDOMEN: Soft, no significant tenderness appreciated, normoactive bowel sounds. No guarding, no rebound. No rigidity noted . No masses appreciated. EXTREMITIES: Pedal pulses are 1-2+, no calf tenderness noted. No clubbing or cyanosis. negative pedal edema noted NEUROLOGICAL: Focused neurological exam showed no significant neurologic deficit. Normal speech, no focal weakness appreciated. PSYCH: Normal mood, normal affect. Judgment and insight within normal limits. SKIN: No significant ecchymosis, skin is noted to be warm. MUSCULOSKELETAL EXAM: No significant acute joint swelling noted. Results Laboratory Results: 05/02/18 05:00 05/02/18 05:00 05/02/18 05/02/18 05/02/18 05:00 05:00 17:23 WBC 11.2 H RBC 3.68 L Hgb 12.5 Hct 37.1 MCV 101 H MCH 34.0 H MCHC 33.7 RDW 14.9 H Plt Count 138 L Sodium 145.3 H Potassium 4.1 Chloride 107 Carbon Dioxide 29 Anion Gap 9 BUN 28 H Creatinine 0.98 Est GFR ( Amer) > 60 Est GFR (Non-Af Amer) 56 L Glucose 117 H Calcium 9.5 Urine Color PHILIP Urine Appearance CLOUDY Urine pH 5.0 Ur Specific [place] 1.019 Urine Protein NEGATIVE Urine Glucose (UA) NEGATIVE Urine Ketones NEGATIVE Urine Blood SMALL H Urine Nitrite NEGATIVE Ur Leukocyte Esterase LARGE H Urine WBC (Auto) 20 Urine RBC (Auto) 12 04/27/18 04/27/18 04/27/18 10:16 16:54 23:10 Troponin I 0.106 0.108 0.098 NT-Pro-B Natriuret Pep 04/28/18 04/29/18 04/30/18 04:25 05:06 03:42 Troponin I NT-Pro-B Natriuret Pep 7200 H 6050 H 4450 H Impressions: Chest X-Ray 04/27/18 02:55 IMPRESSION: Small right pleural effusion. Underlying COPD. Osteopenia 2010 [employer]- All Rights Reserved Chest/Abdomen CTA 04/27/18 03:44 IMPRESSION: Negative for pulmonary embolus, thoracic aortic aneurysm, or dissection. Moderate to severe emphysematous changes. Bilateral pulmonary nodules. Please see below for current Fleischner Society recommendations. Small bibasilar effusions with adjacent atelectasis. 2017 Fleischner Society Recommendations for Multiple Solid Lung Nodules Follow-Up base on size (average of long- and short-axis diameters). Use most suspicious nodule for followup. Nodule Size <6 mm Low-Risk Patient: No routine follow-up Nodule Size <6 mm High-Risk Patient: Optional CT at 12 months Nodule Size 6-8 mm Low-Risk Patient: CT at 3-[address] at 18-24 months Nodule Size 6-8 mm High-Risk Patient: CT at 3-6 months then at 18-24 months Nodule Size (mm) >8 Low-Risk Patient: CT at 3-6 months, then consider CT at 18-24 months Nodule Size (mm) >8 High-Risk Patient: CT at 3-6 months, then at 18-24 months TECHNICAL DOCUMENTATION: Quality ID # 436: Final reports with documentation of one or more dose reduction techniques (e.g., Automated exposure control, adjustment of the mA and/or kV according to patient size, use of iterative reconstruction technique) 2010 [employer]- All Rights Reserved Esophagus X-Ray 04/29/18 00:00 IMPRESSION: MUCOSAL FILLING DEFECT SEEN WITHIN THE DISTAL ESOPHAGUS ALONG THE ANTERIOR WALL WHICH MAY REPRESENT RETAINED FOOD MATERIAL ALTHOUGH ESOPHAGEAL MASS IS SUGGESTED. FOLLOW-UP WITH ENDOSCOPY IS RECOMMENDED. . Assessment & Plan - Diagnosis (1) Acute on chronic diastolic congestive heart failure Is this a current diagnosis for this admission?: Yes (2) Bilateral pleural effusion Is this a current diagnosis for this admission?: Yes (3) Elevated brain natriuretic peptide (BNP) level Is this a current diagnosis for this admission?: Yes (4) Elevated troponin Is this a current diagnosis for this admission?: Yes (5) Nonrheumatic mitral valve insufficiency Is this a current diagnosis for this admission?: Yes (6) Panacinar emphysema Is this a current diagnosis for this admission?: Yes - Notes Notes: Patient has been generally stable from cardiac standpoint. Patient now been diagnosed to have esophageal malignancy. She has problems with food intake but currently refusing PEG tube placement. Patient may need stent placement but cannot be done here. Cardiac rondon she is noted to be stable. Will follow on as needed basis. - Time Time with patient: 15-25 minutes Medications reviewed and adjusted accordingly: Yes
[2018-05-03] MEDS ORDERED: IPRATROPIUM/ALBUTEROL 0.5-2.5 MG/3 ML AMPUL NEB PRN (04:00)
[2018-05-03] MEDS: LANSOPRAZOLE 30 MG TAB.RAP.DR PO SCH (06:04)
[2018-05-03] MEDS: DILTIAZEM HCL 30 MG TABLET PO SCH ×3 (06:04→22:12)
[2018-05-03 06:09] LABS: ANION GAP 12 (5-19); BLOOD UREA NITROGEN 24 mg/dL (7-20); CARBON DIOXIDE 27 mmol/L (22-30); CHLORIDE 107 mmol/L (98-107); GLUCOSE 115 mg/dL (75-110); POTASSIUM 4.1 mmol/L (3.6-5.0); SODIUM 146.4 mmol/L (137-145)
--- NOTE | 2018-05-03 09:09 | PDOC PROGRESS REPORT ---
Subjective Progress Note for:: 05/03/18 Subjective:: 3am dyspnea & wheeze responded to neb. Insomnia on fentanyl patch as before. Likes only morphine. Reason For Visit: HEART FAILURE Physical Exam Vital Signs: Temp Pulse Resp BP Pulse Ox 98.4 F 101 H 16 110/61 95 05/03/18 08:02 05/03/18 08:02 05/03/18 08:02 05/03/18 08:02 05/03/18 08:02 Intake & Output 05/02/18 05/03/18 05/04/18 07:59 07:59 07:59 Intake Total 457 746 Balance 457 746 Weight 91 lb 0.815 oz 91 lb 0.815 oz General appearance: PRESENT: no acute distress Respiratory exam: PRESENT: clear to auscultation brandee Cardiovascular exam: PRESENT: irregular rhythm, systolic murmur. ABSENT: diastolic murmur Murmur grade: 2 GI/Abdominal exam: ABSENT: mass, organolmegaly, tenderness Extremities exam: ABSENT: pedal edema Neurological exam: PRESENT: alert, oriented to time. ABSENT: oriented to situation Psychiatric exam: PRESENT: anxious Results Laboratory Results: 05/02/18 05:00 05/03/18 04:05 05/02/18 05/03/18 17:23 04:05 Sodium 146.4 H Potassium 4.1 Chloride 107 Carbon Dioxide 27 Anion Gap 12 BUN 24 H Creatinine 0.71 Est GFR ( Amer) > 60 Est GFR (Non-Af Amer) > 60 Glucose 115 H Calcium 10.0 Urine Color PHILIP Urine Appearance CLOUDY Urine pH 5.0 Ur Specific [place] 1.019 Urine Protein NEGATIVE Urine Glucose (UA) NEGATIVE Urine Ketones NEGATIVE Urine Blood SMALL H Urine Nitrite NEGATIVE Ur Leukocyte Esterase LARGE H Urine WBC (Auto) 20 Urine RBC (Auto) 12 Impressions: Chest X-Ray 04/27/18 02:55 IMPRESSION: Small right pleural effusion. Underlying COPD. Osteopenia 2010 [employer]- All Rights Reserved Chest/Abdomen CTA 04/27/18 03:44 IMPRESSION: Negative for pulmonary embolus, thoracic aortic aneurysm, or dissection. Moderate to severe emphysematous changes. Bilateral pulmonary nodules. Please see below for current Fleischner Society recommendations. Small bibasilar effusions with adjacent atelectasis. 2017 Fleischner Society Recommendations for Multiple Solid Lung Nodules Follow-Up base on size (average of long- and short-axis diameters). Use most suspicious nodule for followup. Nodule Size <6 mm Low-Risk Patient: No routine follow-up Nodule Size <6 mm High-Risk Patient: Optional CT at 12 months Nodule Size 6-8 mm Low-Risk Patient: CT at 3-[address] at 18-24 months Nodule Size 6-8 mm High-Risk Patient: CT at 3-6 months then at 18-24 months Nodule Size (mm) >8 Low-Risk Patient: CT at 3-6 months, then consider CT at 18-24 months Nodule Size (mm) >8 High-Risk Patient: CT at 3-6 months, then at 18-24 months TECHNICAL DOCUMENTATION: Quality ID # 436: Final reports with documentation of one or more dose reduction techniques (e.g., Automated exposure control, adjustment of the mA and/or kV according to patient size, use of iterative reconstruction technique) 2010 [employer]- All Rights Reserved Esophagus X-Ray 04/29/18 00:00 IMPRESSION: MUCOSAL FILLING DEFECT SEEN WITHIN THE DISTAL ESOPHAGUS ALONG THE ANTERIOR WALL WHICH MAY REPRESENT RETAINED FOOD MATERIAL ALTHOUGH ESOPHAGEAL MASS IS SUGGESTED. FOLLOW-UP WITH ENDOSCOPY IS RECOMMENDED. . Assessment & Plan - Diagnosis (1) Malignant neoplasm of lower third of esophagus Is this a current diagnosis for this admission?: Yes Plan: biopsy showed squamous cell cancer again. Dr Mclean offered to see her in 2d in office to discuss stent at [facility]. Back to [facility]. (2) Paroxysmal atrial fibrillation Is this a current diagnosis for this admission?: Yes (3) Acute on chronic diastolic congestive heart failure Is this a current diagnosis for this admission?: Yes Plan: resume furosemide at 20mg since bp ok & intake poor (4) Nonrheumatic mitral valve insufficiency Is this a current diagnosis for this admission?: Yes (5) Panacinar emphysema Is this a current diagnosis for this admission?: Yes Plan: [id number]. No home oxygen (6) 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 Is this a current diagnosis for this admission?: Yes (7) Alcoholic cirrhosis Qualifiers: Ascites presence: without ascites Qualified Code(s): K70.30 - Alcoholic cirrhosis of liver without ascites Is this a current diagnosis for this admission?: Yes (8) Acute cystitis Qualifiers: Hematuria presence: without hematuria Qualified Code(s): N30.00 - Acute cystitis without hematuria Is this a current diagnosis for this admission?: Yes Plan: still pyuria after 1 dose ceftri with no culture. Cultured. Keflex. - Inpatient Certification Medical Necessity: Failure to Improve With Outpatient Therapy, Significant Comorbidiites Make Outpatient Treatment Too Risky, Need Close Monitoring Due to Risk of Patient Decompensation, Need For Continuous Telemetry Monitoring, Need for Nebulizer Therapy and Monitoring of Response, Need for Pain Control, Risk of Complication if Not Cared For in Hospital, Risk of Diagnosis Which Will Require Inpatient Eval/Care/Monitoring
[2018-05-03] MEDS: MORPHINE SULFATE IR 15 MG TABLET PO PRN (09:39)
[2018-05-03] MEDS: FUROSEMIDE 20 MG TABLET PO SCH (09:42)
[2018-05-03] MEDS: SPIRONOLACTONE 25 MG TABLET PO SCH (09:42)
[2018-05-03] MEDS: FOLIC ACID 1 MG TABLET PO SCH (09:43)
[2018-05-03] MEDS: THIAMINE HCL 100 MG TABLET PO SCH (09:43)
[2018-05-03] MEDS: CEPHALEXIN 250 MG CAPSULE PO SCH ×4 (09:46→22:12)
[2018-05-03] MEDS: LUBIPROSTONE 24 MCG CAPSULE PO SCH ×2 (09:51→17:40)
[2018-05-03] MEDS: MULTIVITAMINS W-IRON TABLET, CHEWABLE PO SCH (14:15)
[2018-05-04] MEDS: DILTIAZEM HCL 30 MG TABLET PO SCH ×3 (06:09→22:17)
[2018-05-04] MEDS: MORPHINE SULFATE IR 15 MG TABLET PO PRN ×2 (06:10→22:17)
[2018-05-04] MEDS: LANSOPRAZOLE 30 MG TAB.RAP.DR PO SCH (06:10)
--- NOTE | 2018-05-04 06:14 | PDOC PROGRESS REPORT ---
Subjective Progress Note for:: 05/04/18 Subjective:: back pain. No dyspnea. Claims eating but nurse says no. Not ready for home today. Refused SNF. "Give me 1 more day." Reason For Visit: HEART FAILURE Physical Exam Vital Signs: Temp Pulse Resp BP Pulse Ox 97.7 F 96 19 114/55 L 96 05/04/18 03:00 05/04/18 03:00 05/04/18 03:00 05/04/18 03:00 05/04/18 03:00 Intake & Output 05/02/18 05/03/18 05/04/18 07:59 07:59 07:59 Intake Total 457 746 118 Output Total 300 Balance 457 746 -182 Weight 91 lb 0.815 oz 91 lb 0.815 oz General appearance: PRESENT: no acute distress Respiratory exam: PRESENT: clear to auscultation brandee Cardiovascular exam: PRESENT: systolic murmur. ABSENT: diastolic murmur, irregular rhythm Murmur grade: 1 GI/Abdominal exam: ABSENT: mass, organolmegaly, tenderness Neurological exam: PRESENT: alert. ABSENT: oriented to situation Psychiatric exam: PRESENT: anxious Results Laboratory Results: 05/02/18 05:00 05/03/18 04:05 Impressions: Chest X-Ray 04/27/18 02:55 IMPRESSION: Small right pleural effusion. Underlying COPD. Osteopenia 2010 [employer]- All Rights Reserved Chest/Abdomen CTA 04/27/18 03:44 IMPRESSION: Negative for pulmonary embolus, thoracic aortic aneurysm, or dissection. Moderate to severe emphysematous changes. Bilateral pulmonary nodules. Please see below for current Fleischner Society recommendations. Small bibasilar effusions with adjacent atelectasis. 2017 Fleischner Society Recommendations for Multiple Solid Lung Nodules Follow-Up base on size (average of long- and short-axis diameters). Use most suspicious nodule for followup. Nodule Size <6 mm Low-Risk Patient: No routine follow-up Nodule Size <6 mm High-Risk Patient: Optional CT at 12 months Nodule Size 6-8 mm Low-Risk Patient: CT at 3-[address] at 18-24 months Nodule Size 6-8 mm High-Risk Patient: CT at 3-6 months then at 18-24 months Nodule Size (mm) >8 Low-Risk Patient: CT at 3-6 months, then consider CT at 18-24 months Nodule Size (mm) >8 High-Risk Patient: CT at 3-6 months, then at 18-24 months TECHNICAL DOCUMENTATION: Quality ID # 436: Final reports with documentation of one or more dose reduction techniques (e.g., Automated exposure control, adjustment of the mA and/or kV according to patient size, use of iterative reconstruction technique) 2010 [facility]- All Rights Reserved Esophagus X-Ray 04/29/18 00:00 IMPRESSION: MUCOSAL FILLING DEFECT SEEN WITHIN THE DISTAL ESOPHAGUS ALONG THE ANTERIOR WALL WHICH MAY REPRESENT RETAINED FOOD MATERIAL ALTHOUGH ESOPHAGEAL MASS IS SUGGESTED. FOLLOW-UP WITH ENDOSCOPY IS RECOMMENDED. . Assessment & Plan - Diagnosis (1) Malignant neoplasm of lower third of esophagus Is this a current diagnosis for this admission?: Yes Plan: Doubt could tolerate chemo. Prognosis poor. Will be back soon. Try home to [place] so she can arrange stent with Dr Mclean. (2) Paroxysmal atrial fibrillation Is this a current diagnosis for this admission?: Yes (3) Acute on chronic diastolic congestive heart failure Is this a current diagnosis for this admission?: Yes (4) Nonrheumatic mitral valve insufficiency Is this a current diagnosis for this admission?: Yes (5) Panacinar emphysema Is this a current diagnosis for this admission?: Yes (6) 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 Is this a current diagnosis for this admission?: Yes (7) Alcoholic cirrhosis Qualifiers: Ascites presence: without ascites Qualified Code(s): K70.30 - Alcoholic cirrhosis of liver without ascites Is this a current diagnosis for this admission?: Yes (8) Acute cystitis Qualifiers: Hematuria presence: without hematuria Qualified Code(s): N30.00 - Acute cystitis without hematuria Is this a current diagnosis for this admission?: Yes - Inpatient Certification Medical Necessity: Failure to Improve With Outpatient Therapy, Significant Comorbidiites Make Outpatient Treatment Too Risky, Need Close Monitoring Due to Risk of Patient Decompensation, Need For Continuous Telemetry Monitoring, Need for Nebulizer Therapy and Monitoring of Response, Need for Pain Control, Risk of Complication if Not Cared For in Hospital, Risk of Diagnosis Which Will Require Inpatient Eval/Care/Monitoring
[2018-05-04] MEDS: CEPHALEXIN 250 MG CAPSULE PO SCH ×4 (09:43→22:17)
[2018-05-04] MEDS: THIAMINE HCL 100 MG TABLET PO SCH (09:43)
[2018-05-04] MEDS: FOLIC ACID 1 MG TABLET PO SCH (09:43)
[2018-05-04] MEDS: SPIRONOLACTONE 25 MG TABLET PO SCH (09:43)
[2018-05-04] MEDS: FUROSEMIDE 20 MG TABLET PO SCH (09:43)
[2018-05-04] MEDS: LUBIPROSTONE 24 MCG CAPSULE PO SCH ×2 (09:43→17:06)
[2018-05-04] MEDS: MULTIVITAMINS W-IRON TABLET, CHEWABLE PO SCH (09:52)
[2018-05-05 05:30] LABS: HEMATOCRIT 34.3 % (36.0-47.0); HEMOGLOBIN 11.5 g/dL (12.0-15.5); MEAN CORPUSCULAR HEMOGLOBIN 33.6 pg (27.0-33.4); MEAN CORPUSCULAR HGB CONC 33.5 g/dL (32.0-36.0); MEAN CORPUSCULAR VOLUME 101 fl (80-97); PLATELET COUNT 117 10^3/uL (150-450); RED BLOOD COUNT 3.41 10^6/uL (3.72-5.28); WHITE BLOOD COUNT 9.6 10^3/uL (4.0-10.5)
[2018-05-05] MEDS: LANSOPRAZOLE 30 MG TAB.RAP.DR PO SCH (06:14)
[2018-05-05] MEDS: DILTIAZEM HCL 30 MG TABLET PO SCH ×3 (06:14→21:34)
--- NOTE | 2018-05-05 07:50 | PDOC PROGRESS REPORT ---
Subjective Progress Note for:: 05/05/18 Subjective:: Too sick to go home and see Dr Mclean for outpatient stent. Intermittant nausea. Pain not controlled. Wants to in SNF. wants to talk to kids. Can not say if has stooled since admission. Nurse said did on 9apr. Does not answer when I ask the year. Reason For Visit: HEART FAILURE Physical Exam Vital Signs: Temp Pulse Resp BP Pulse Ox 97.4 F 97 17 134/76 H 96 05/05/18 06:19 05/05/18 06:19 05/05/18 06:19 05/05/18 06:19 05/05/18 06:19 Intake & Output 05/03/18 05/04/18 05/05/18 07:59 07:59 07:59 Intake Total 746 358 437 Output Total 750 1250 Balance 876 392 -813 Weight 91 lb 0.815 oz 97 lb 0.054 oz 95 lb 3.835 oz General appearance: PRESENT: no acute distress, thin Respiratory exam: PRESENT: wheezes - mild Cardiovascular exam: ABSENT: diastolic murmur, irregular rhythm, systolic murmur GI/Abdominal exam: ABSENT: mass, organolmegaly, tenderness Neurological exam: PRESENT: alert, oriented to situation. ABSENT: oriented to time Psychiatric exam: PRESENT: depressed Results Laboratory Results: 05/05/18 05:02 05/03/18 04:05 05/05/18 05:02 WBC 9.6 RBC 3.41 L Hgb 11.5 L Hct 34.3 L MCV 101 H MCH 33.6 H MCHC 33.5 RDW 15.0 H Plt Count 117 L 04/27/18 04/27/18 04/27/18 10:16 16:54 23:10 Troponin I 0.106 0.108 0.098 NT-Pro-B Natriuret Pep 04/28/18 04/29/18 04/30/18 04:25 05:06 03:42 Troponin I NT-Pro-B Natriuret Pep 7200 H 6050 H 4450 H Impressions: Chest X-Ray 04/27/18 02:55 IMPRESSION: Small right pleural effusion. Underlying COPD. Osteopenia 2010 [email or web address]- All Rights Reserved Chest/Abdomen CTA 04/27/18 03:44 IMPRESSION: Negative for pulmonary embolus, thoracic aortic aneurysm, or dissection. Moderate to severe emphysematous changes. Bilateral pulmonary nodules. Please see below for current Fleischner Society recommendations. Small bibasilar effusions with adjacent atelectasis. 2017 Fleischner Society Recommendations for Multiple Solid Lung Nodules Follow-Up base on size (average of long- and short-axis diameters). Use most suspicious nodule for followup. Nodule Size <6 mm Low-Risk Patient: No routine follow-up Nodule Size <6 mm High-Risk Patient: Optional CT at 12 months Nodule Size 6-8 mm Low-Risk Patient: CT at 3-[address] at 18-24 months Nodule Size 6-8 mm High-Risk Patient: CT at 3-6 months then at 18-24 months Nodule Size (mm) >8 Low-Risk Patient: CT at 3-6 months, then consider CT at 18-24 months Nodule Size (mm) >8 High-Risk Patient: CT at 3-6 months, then at 18-24 months TECHNICAL DOCUMENTATION: Quality ID # 436: Final reports with documentation of one or more dose reduction techniques (e.g., Automated exposure control, adjustment of the mA and/or kV according to patient size, use of iterative reconstruction technique) 2010 [email or web address]- All Rights Reserved Esophagus X-Ray 04/29/18 00:00 IMPRESSION: MUCOSAL FILLING DEFECT SEEN WITHIN THE DISTAL ESOPHAGUS ALONG THE ANTERIOR WALL WHICH MAY REPRESENT RETAINED FOOD MATERIAL ALTHOUGH ESOPHAGEAL MASS IS SUGGESTED. FOLLOW-UP WITH ENDOSCOPY IS RECOMMENDED. . Assessment & Plan - Diagnosis (1) Nutritional marasmus Is this a current diagnosis for this admission?: Yes Plan: I see no need for stent since she has not been eating liquid supplements Dr Mari said would go down. (2) Malignant neoplasm of lower third of esophagus Is this a current diagnosis for this admission?: Yes Plan: increase morphine 15q6h (3) Paroxysmal atrial fibrillation Is this a current diagnosis for this admission?: Yes (4) Acute on chronic diastolic congestive heart failure Is this a current diagnosis for this admission?: Yes Plan: stop furosemide 20 because of poor intake (5) Nonrheumatic mitral valve insufficiency Is this a current diagnosis for this admission?: Yes (6) Panacinar emphysema Is this a current diagnosis for this admission?: Yes Plan: 21%sat84. Needs oxygen on discharge. (7) 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 Is this a current diagnosis for this admission?: Yes (8) Alcoholic cirrhosis Qualifiers: Ascites presence: without ascites Qualified Code(s): K70.30 - Alcoholic cirrhosis of liver without ascites Is this a current diagnosis for this admission?: Yes (9) Acute cystitis Qualifiers: Hematuria presence: without hematuria Qualified Code(s): N30.00 - Acute cystitis without hematuria Is this a current diagnosis for this admission?: Yes Plan: culture pending. Continue keflex - Inpatient Certification Medical Necessity: Significant Comorbidiites Make Outpatient Treatment Too Risky , Need Close Monitoring Due to Risk of Patient Decompensation, Need For Continuous Telemetry Monitoring, Need for Nebulizer Therapy and Monitoring of Response, Need for Pain Control, Risk of Complication if Not Cared For in Hospital, Risk of Diagnosis Which Will Require Inpatient Eval/Care/Monitoring
[2018-05-05] MEDS: MORPHINE SULFATE IR 15 MG TABLET PO SCH ×3 (09:25→19:32)
[2018-05-05] MEDS: SPIRONOLACTONE 25 MG TABLET PO SCH (09:25)
[2018-05-05] MEDS: LUBIPROSTONE 24 MCG CAPSULE PO SCH ×2 (09:25→17:32)
[2018-05-05] MEDS: CEPHALEXIN 250 MG CAPSULE PO SCH ×4 (09:25→21:34)
[2018-05-05] MEDS: THIAMINE HCL 100 MG TABLET PO SCH (09:26)
[2018-05-05] MEDS: MULTIVITAMINS W-IRON TABLET, CHEWABLE PO SCH (09:26)
[2018-05-05] MEDS: FOLIC ACID 1 MG TABLET PO SCH (09:34)
--- NOTE | 2018-05-05 10:34 | EKG REPORT ---
SEVERITY:- BORDERLINE ECG - SINUS TACHYCARDIA WITH SHORT PAT RUN : Confirmed by: Janine Parrish 05-May-2018 10:33:36
--- NOTE | 2018-05-05 21:32 | CONSULTATION REPORT E ---
Consultation Report NAME: RUDY GONZALES : 1950 AGE: 67Y DATE: 05/05/2018 ROOM: 529 A TO: CAMILLA BRYANT M.D. FROM: OSEAS YANCEY M.D. Requesting Physician REASON FOR CONSULTATION: Esophageal cancer. HISTORY OF PRESENT ILLNESS: The patient is a 67-year-old with a diagnosis of esophageal cancer. She had presented with a stage IIB, T3, N1, M0. She received chemoradiation and went into complete remission. She was supposed to return for repeat endoscopies and biopsies to early detect recurrence, but she had refused. She was doing well. I saw her last in office in March 2018 and noticed that she had lost a lot of weight. I scheduled her for a CT scan. However, prior to that she was admitted into the hospital with dyspnea April 27, 2018. She had presented in the hospital with dyspnea, was found to have congestive diastolic failure. PAST MEDICAL HISTORY: Includes a history of congestive heart failure, chronic diastolic with hypertension, COPD. In 2010, respiratory failure was intubated. Alcohol liver disease. MEDICATIONS: At home include DuoNeb nebulizer, lisinopril, hydrochlorothiazide. ALLERGIES: She is allergic to IODINE, OXYCODONE, CODEINE. REVIEW OF SYSTEMS: Newly weight loss, difficulty swallowing, shortness of breath. PHYSICAL EXAMINATION: GENERAL: She is an elderly woman chronically ill looking, cachectic, in bed surrounded by her family. SKIN: No palpable peripheral adenopathy. ABDOMEN: Soft. EXTREMITIES: No edema. LABORATORY DATA: On 05/01; sodium is 145.9, potassium 4.0, calcium is 9.6, white count 10.9, hemoglobin 13.3, platelet count is 156. She had EGD with biopsy 05/01/2018; distal esophageal mass thickening consistent with malignancy. CT chest 04/27; bilateral pulmonary nodules. IMPRESSION AND PLAN: The patient is a 67-year-old with a prior history of esophageal cancer, she is status post chemotherapy and radiation, tolerated well. Actually went into complete remission. Unfortunately it has now recurred with possible lung metastasis. She has a very poor performance status to restart chemotherapy at this time. I explained to her that given her underlying medical condition she may not be able to tolerate additional chemotherapy at this time unless she improves clinically. I discussed DNR with her. She is in agreement but would like to wait on her to see what he thinks. She does not want to be discharged home she would rather go to a long-term care facility. If she is stable and discharged home I will be glad to follow her as an outpatient. Otherwise, if she goes to a prison I explained to her and her family, that hospice would be appropriate. If she improves clinically then palliative chemotherapy could be tried. I explained to her that her cancer is not curable and she understands. I thank you for this consultation and allowing me to be a part of her care. DICTATING PHYSICIAN: CAMILLA BRYANT M.D. [id number] PHY#: [id number] ID: [id number] JOB#: [id number] ACCT: [id number] cc:CAMILLA BRYANT M.D. >
[2018-05-06] MEDS: MORPHINE SULFATE IR 15 MG TABLET PO SCH ×5 (00:36→23:52)
[2018-05-06] MEDS: DILTIAZEM HCL 30 MG TABLET PO SCH ×3 (05:21→21:55)
--- NOTE | 2018-05-06 07:39 | PDOC PROGRESS REPORT ---
Subjective Progress Note for:: 05/06/18 Subjective:: stupor Reason For Visit: HEART FAILURE Physical Exam Vital Signs: Temp Pulse Resp BP Pulse Ox 98.2 F 120 H 15 112/68 93 05/06/18 03:35 05/06/18 03:35 05/06/18 03:35 05/06/18 03:35 05/06/18 03:35 Intake & Output 05/04/18 05/05/18 05/06/18 07:59 07:59 07:59 Intake Total 358 437 30 Output Total 750 1250 Balance -392 -813 30 Weight 97 lb 0.054 oz 95 lb 3.835 oz 92 lb 13.034 oz General appearance: PRESENT: no acute distress Respiratory exam: PRESENT: clear to auscultation brandee Cardiovascular exam: PRESENT: systolic murmur. ABSENT: diastolic murmur, irregular rhythm Murmur grade: 2 GI/Abdominal exam: ABSENT: mass, organolmegaly, tenderness Extremities exam: ABSENT: pedal edema Results Laboratory Results: 05/05/18 05:02 05/03/18 04:05 05/02/18 17:23 Clean Catch Midstream Urine Culture - Final Gardnerella Vaginalis 04/27/18 04/27/18 04/27/18 10:16 16:54 23:10 Troponin I 0.106 0.108 0.098 NT-Pro-B Natriuret Pep 04/28/18 04/29/18 04/30/18 04:25 05:06 03:42 Troponin I NT-Pro-B Natriuret Pep 7200 H 6050 H 4450 H Impressions: Chest X-Ray 04/27/18 02:55 IMPRESSION: Small right pleural effusion. Underlying COPD. Osteopenia 2010 [employer]- All Rights Reserved Chest/Abdomen CTA 04/27/18 03:44 IMPRESSION: Negative for pulmonary embolus, thoracic aortic aneurysm, or dissection. Moderate to severe emphysematous changes. Bilateral pulmonary nodules. Please see below for current Fleischner Society recommendations. Small bibasilar effusions with adjacent atelectasis. 2017 Fleischner Society Recommendations for Multiple Solid Lung Nodules Follow-Up base on size (average of long- and short-axis diameters). Use most suspicious nodule for followup. Nodule Size <6 mm Low-Risk Patient: No routine follow-up Nodule Size <6 mm High-Risk Patient: Optional CT at 12 months Nodule Size 6-8 mm Low-Risk Patient: CT at 3-[address] at 18-24 months Nodule Size 6-8 mm High-Risk Patient: CT at 3-6 months then at 18-24 months Nodule Size (mm) >8 Low-Risk Patient: CT at 3-6 months, then consider CT at 18-24 months Nodule Size (mm) >8 High-Risk Patient: CT at 3-6 months, then at 18-24 months TECHNICAL DOCUMENTATION: Quality ID # 436: Final reports with documentation of one or more dose reduction techniques (e.g., Automated exposure control, adjustment of the mA and/or kV according to patient size, use of iterative reconstruction technique) 2010 [employer]- All Rights Reserved Esophagus X-Ray 04/29/18 00:00 IMPRESSION: MUCOSAL FILLING DEFECT SEEN WITHIN THE DISTAL ESOPHAGUS ALONG THE ANTERIOR WALL WHICH MAY REPRESENT RETAINED FOOD MATERIAL ALTHOUGH ESOPHAGEAL MASS IS SUGGESTED. FOLLOW-UP WITH ENDOSCOPY IS RECOMMENDED. . Assessment & Plan - Diagnosis (1) Nutritional marasmus Is this a current diagnosis for this admission?: Yes (2) Malignant neoplasm of lower third of esophagus Is this a current diagnosis for this admission?: Yes Plan: Yesterday she and family chose DNR & home on hospice. Needs oxygen 4L hospital bed [facility] [place]. (3) Paroxysmal atrial fibrillation Is this a current diagnosis for this admission?: Yes (4) Acute on chronic diastolic congestive heart failure Is this a current diagnosis for this admission?: Yes Plan: holding diuretics for absent intake (5) Nonrheumatic mitral valve insufficiency Is this a current diagnosis for this admission?: Yes (6) Panacinar emphysema Is this a current diagnosis for this admission?: Yes (7) 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 Is this a current diagnosis for this admission?: Yes (8) Alcoholic cirrhosis Qualifiers: Ascites presence: without ascites Qualified Code(s): K70.30 - Alcoholic cirrhosis of liver without ascites Is this a current diagnosis for this admission?: Yes (9) Acute cystitis Qualifiers: Hematuria presence: without hematuria Qualified Code(s): N30.00 - Acute cystitis without hematuria Is this a current diagnosis for this admission?: Yes Plan: 100k gardnerella vaginalis. Stopped keflex. - Inpatient Certification Medical Necessity: Significant Comorbidiites Make Outpatient Treatment Too Risky , Need Close Monitoring Due to Risk of Patient Decompensation, Need For Continuous Telemetry Monitoring, Need for Nebulizer Therapy and Monitoring of Response, Need for Pain Control, Risk of Complication if Not Cared For in Hospital, Risk of Diagnosis Which Will Require Inpatient Eval/Care/Monitoring
[2018-05-07 06:35] LABS: HEMOGLOBIN 11.9 g/dL (12.0-15.5); MEAN CORPUSCULAR HEMOGLOBIN 33.8 pg (27.0-33.4); MEAN CORPUSCULAR HGB CONC 33.1 g/dL (32.0-36.0); MEAN CORPUSCULAR VOLUME 102 fl (80-97); PLATELET COUNT 108 10^3/uL (150-450); RED BLOOD COUNT 3.52 10^6/uL (3.72-5.28); RED CELL DISTRIBUTION WIDTH 15.7 % (11.5-14.0)
[2018-05-07] MEDS: MORPHINE SULFATE IR 15 MG TABLET PO SCH ×2 (06:48→15:15)
[2018-05-07] MEDS: DILTIAZEM HCL 30 MG TABLET PO SCH (06:49)
--- NOTE | 2018-05-07 07:59 | PDOC DISCHARGE SUMMARY ---
General - Admit/Disc Date/PCP Admission Date/Primary Care Provider: 04/27/18 06:31 OSEAS YANCEY MD Discharge Date: 05/07/18 - Discharge Diagnosis (1) Nutritional marasmus Is this a current diagnosis for this admission?: Yes (2) Malignant neoplasm of lower third of esophagus Is this a current diagnosis for this admission?: Yes (3) Paroxysmal atrial fibrillation Is this a current diagnosis for this admission?: Yes (4) Acute on chronic diastolic congestive heart failure Is this a current diagnosis for this admission?: Yes (5) Nonrheumatic mitral valve insufficiency Is this a current diagnosis for this admission?: Yes (6) Panacinar emphysema Is this a current diagnosis for this admission?: Yes (7) 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 Is this a current diagnosis for this admission?: Yes (8) Alcoholic cirrhosis Is this a current diagnosis for this admission?: Yes (9) Acute cystitis Is this a current diagnosis for this admission?: Yes - Additional Information Resuscitation Status: Do Not Resuscitate Discharge Diet: Full Liquids Discharge Activity: Activity As Tolerated Prescriptions: Diltiazem HCl [Cardizem 30 mg Tablet] 30 mg PO Q8 #90 tablet Morphine Sulfate [Morphine Ir 15 mg Tablet] 15 mg PO Q6 #120 tablet Promethazine HCl [Phenergan 25 mg Tablet] 25 mg PO Q6HP PRN #120 tablet PRN Reason: Home Medications: Ipratropium/Albuterol Sulfate [Duoneb 3 ml Ampul] 3 ml NEB RTQ6HP PRN 04/27/18 Diltiazem HCl [Cardizem 30 mg Tablet] 30 mg PO Q8 #90 tablet 05/02/18 Promethazine HCl [Phenergan 25 mg Tablet] 25 mg PO Q6HP PRN #120 tablet Morphine Sulfate [Morphine Ir 15 mg Tablet] 15 mg PO Q6 #120 tablet 05/06/18 History of Present Illness Patient complains of: dyspnea dysphagia History of Present Illness: RUDY GONZALES is a 67 year old female with emphysema diastolic failure alcoholic cirrhosis & distal esophageal cancer has had 2d buckley & pnd unrelieved by duonebs. 2010 echo: ddf1 mr moderate [id number] Lae Nisa Rve Hospital Course Hospital Course: She was diuresed. Echo showed mr. Afib prevented assessment of diastolic function this time. Diltiazem was added for rate control when bp allowed. Her complaint shifted to solid dysphagia. Endoscopy showed distal mass. 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 Liquids were passing but intake was too poor to consider stent. Dr Mclean said she was too malnourished for chemo. Patient chose to go home with hospice. Fentanyl 25mcg/h kept her awake. She prefered morphine. 15mg bid was not enough to control chest and mid back pain. Qid sedated her. Urine grew gardnerella vaginalis. She and her family chose DNR. Physical Exam Vital Signs: Temp Pulse Resp BP Pulse Ox 98.4 F 118 H 16 133/80 H 99 05/07/18 06:37 05/07/18 06:37 05/07/18 06:37 05/07/18 06:37 05/07/18 06:37 Intake & Output 05/05/18 05/06/18 05/07/18 07:59 07:59 07:59 Intake Total 437 30 20 Output Total 1250 Balance -813 30 20 Weight 95 lb 3.835 oz 92 lb 13.034 oz 86 lb 13.794 oz General appearance: PRESENT: no acute distress Respiratory exam: PRESENT: clear to auscultation brandee Cardiovascular exam: PRESENT: systolic murmur. ABSENT: diastolic murmur, irregular rhythm Murmur grade: 1 GI/Abdominal exam: ABSENT: mass, organolmegaly, tenderness Neurological exam: PRESENT: altered Results Laboratory Results: 05/03/18 04:05 Labs- Last Values WBC 11.0 10^3/uL (4.0-10.5) H 05/07/18 04:19 RBC 3.52 10^6/uL (3.72-5.28) L 05/07/18 04:19 Hgb 11.9 g/dL (12.0-15.5) L 05/07/18 04:19 Hct 36.0 % (36.0-47.0) 05/07/18 04:19 MCV 102 fl (80-97) H 05/07/18 04:19 MCH 33.8 pg (27.0-33.4) H 05/07/18 04:19 MCHC 33.1 g/dL (32.0-36.0) 05/07/18 04:19 RDW 15.7 % (11.5-14.0) H 05/07/18 04:19 Plt Count 108 10^3/uL (150-450) L 05/07/18 04:19 Seg Neutrophils % 81.1 % (42-78) H 04/27/18 02:49 Lymphocytes % 10.7 % (13-45) L 04/27/18 02:49 Monocytes % 7.8 % (3-13) 04/27/18 02:49 Eosinophils % 0.1 % (0-6) 04/27/18 02:49 Basophils % 0.3 % (0-2) 04/27/18 02:49 Absolute Neutrophils 10.5 10^3/uL (1.7-8.2) H 04/27/18 02:49 Absolute Lymphocytes 1.4 10^3/uL (0.5-4.7) 04/27/18 02:49 Absolute Monocytes 1.0 10^3/uL (0.1-1.4) 04/27/18 02:49 Absolute Eosinophils 0.0 10^3/uL (0.0-0.6) 04/27/18 02:49 Absolute Basophils 0.0 10^3/uL (0.0-0.2) 04/27/18 02:49 VBG pH 7.39 (7.30-7.42) 04/27/18 02:49 VBG pCO2 36.9 mmHg (35-63) 04/27/18 02:49 VBG HCO3 21.8 mmol/L (20-32) 04/27/18 02:49 VBG Base Excess -2.6 mmol/L 04/27/18 02:49 Sodium 146.4 mmol/L (137-145) H 05/03/18 04:05 Potassium 4.1 mmol/L (3.6-5.0) 05/03/18 04:05 Chloride 107 mmol/L (98-107) 05/03/18 04:05 Carbon Dioxide 27 mmol/L (22-30) 05/03/18 04:05 Anion Gap 12 (5-19) 05/03/18 04:05 BUN 24 mg/dL (7-20) H 05/03/18 04:05 Creatinine 0.71 mg/dL (0.52-1.25) 05/03/18 04:05 Est GFR ( Amer) > 60 (>60) 05/03/18 04:05 Est GFR (Non-Af Amer) > 60 (>60) 05/03/18 04:05 Glucose 115 mg/dL (75-110) H 05/03/18 04:05 Calcium 10.0 mg/dL (8.4-10.2) 05/03/18 04:05 Troponin I 0.098 ng/mL 04/27/18 23:10 NT-Pro-B Natriuret Pep 4450 pg/mL (5-900) H 04/30/18 03:42 Urine Color PHILIP 05/02/18 17:23 Urine Appearance CLOUDY 05/02/18 17:23 Urine pH 5.0 (5.0-9.0) 05/02/18 17:23 Ur Specific Ringold 1.019 05/02/18 17:23 Urine Protein NEGATIVE mg/dL (NEGATIVE) 05/02/18 17:23 Urine Glucose (UA) NEGATIVE mg/dL (NEGATIVE) 05/02/18 17:23 Urine Ketones NEGATIVE mg/dL (NEGATIVE) 05/02/18 17:23 Urine Blood SMALL (NEGATIVE) H 05/02/18 17:23 Urine Nitrite NEGATIVE (NEGATIVE) 05/02/18 17:23 Urine Bilirubin NEGATIVE (NEGATIVE) 05/02/18 17:23 Urine Urobilinogen 2.0 mg/dL (<2.0) H 05/02/18 17:23 Ur Leukocyte Esterase LARGE (NEGATIVE) H 05/02/18 17:23 Urine WBC (Auto) 20 /HPF 05/02/18 17:23 Urine RBC (Auto) 12 /HPF 05/02/18 17:23 U Hyaline Cast (Auto) 4 /LPF 05/02/18 17:23 Squamous Epi Cells Auto 3 /HPF 05/02/18 17:23 Urine Ascorbic Acid NEGATIVE (NEGATIVE) 05/02/18 17:23 Impressions: Chest X-Ray 04/27/18 02:55 IMPRESSION: Small right pleural effusion. Underlying COPD. Osteopenia 2010 [employer]- All Rights Reserved Chest/Abdomen CTA 04/27/18 03:44 IMPRESSION: Negative for pulmonary embolus, thoracic aortic aneurysm, or dissection. Moderate to severe emphysematous changes. Bilateral pulmonary nodules. Please see below for current Fleischner Society recommendations. Small bibasilar effusions with adjacent atelectasis. 2017 Fleischner Society Recommendations for Multiple Solid Lung Nodules Follow-Up base on size (average of long- and short-axis diameters). Use most suspicious nodule for followup. Nodule Size <6 mm Low-Risk Patient: No routine follow-up Nodule Size <6 mm High-Risk Patient: Optional CT at 12 months Nodule Size 6-8 mm Low-Risk Patient: CT at 3-[address] at 18-24 months Nodule Size 6-8 mm High-Risk Patient: CT at 3-6 months then at 18-24 months Nodule Size (mm) >8 Low-Risk Patient: CT at 3-6 months, then consider CT at 18-24 months Nodule Size (mm) >8 High-Risk Patient: CT at 3-6 months, then at 18-24 months TECHNICAL DOCUMENTATION: Quality ID # 436: Final reports with documentation of one or more dose reduction techniques (e.g., Automated exposure control, adjustment of the mA and/or kV according to patient size, use of iterative reconstruction technique) 2010 [employer]- All Rights Reserved Esophagus X-Ray 04/29/18 00:00 IMPRESSION: MUCOSAL FILLING DEFECT SEEN WITHIN THE DISTAL ESOPHAGUS ALONG THE ANTERIOR WALL WHICH MAY REPRESENT RETAINED FOOD MATERIAL ALTHOUGH ESOPHAGEAL MASS IS SUGGESTED. FOLLOW-UP WITH ENDOSCOPY IS RECOMMENDED. . Qualifiers - * PATIENT BEING DISCHARGED WITH ANY OF THE FOLLOWING DIAGNOSIS: Heart Failure HF Pt being discharged on ACEI for LVEF less than 40%?: No Reason(s) for not prescribing ACEI:: Medical Contraindication - hypotension HF Pt being discharged on ARBS for LVEF less than 40%?: No Reason(s) for not prescribing ARBS:: Medical Contraindication HF Pt with Afib discharged with Warfarin?: No Reason(s) for not prescribing Warfarin:: Not indicated HF Pt discharged on evidence-based Beta Humberto:: No Reason(s) for not prescribing evidence-based Beta Humberto:: Medical Contraindication
[2018-05-07 12:47] VITALS: BP 131/74
== END 2018-05-07 15:43 | disposition hospice, home (50) | DRG 291 ==
LOC: ER 02:43 → EH 06:31 → 5 08:12
PROVIDERS: ADMIT Family Medicine; ATTEND Family Medicine
PROC: 0DB68ZX Excision of Stomach, Via Natural or Artificial Opening Endoscopic, Diagnostic (ICD-10-PCS; 2018-05-01)
PROC: 0DB38ZX Excision of Lower Esophagus, Via Natural or Artificial Opening Endoscopic, Diagnostic (ICD-10-PCS; principal; 2018-05-01 14:00)
PROC: 3E0F73Z Introduction of Anti-inflammatory into Respiratory Tract, Via Natural or Artificial Opening (ICD-10-PCS; 2018-05-03)
DX: I11.0 Hypertensive heart disease with heart failure (principal); E41 Nutritional marasmus; C15.5 Malignant neoplasm of lower third of esophagus; N30.00 Acute cystitis without hematuria; Z68.1 Body mass index [BMI] 19.9 or less, adult; I50.33 Acute on chronic diastolic (congestive) heart failure; I48.0 Paroxysmal atrial fibrillation; Z66 Do not resuscitate; I34.0 Nonrheumatic mitral (valve) insufficiency; J43.1 Panlobular emphysema; I27.23 Pulmonary hypertension due to lung diseases and hypoxia; K70.30 Alcoholic cirrhosis of liver without ascites; M85.80 Other specified disorders of bone density and structure, unspecified site; K21.9 Gastro-esophageal reflux disease without esophagitis; K70.10 Alcoholic hepatitis without ascites; F10.20 Alcohol dependence, uncomplicated; R00.0 Tachycardia, unspecified; K44.9 Diaphragmatic hernia without obstruction or gangrene; K22.2 Esophageal obstruction; K29.70 Gastritis, unspecified, without bleeding; Z88.6 Allergy status to analgesic agent; Z88.8 Allergy status to other drugs, medicaments and biological substances; Z79.899 Other long term (current) drug therapy; Z92.3 Personal history of irradiation; Z90.49 Acquired absence of other specified parts of digestive tract; Z90.710 Acquired absence of both cervix and uterus; Z87.891 Personal history of nicotine dependence; Z80.9 Family history of malignant neoplasm, unspecified
CPT/HCPCS: 36415; 43239; 71045; 71275; 74220; 80048; 81001; 82803; 83880; 84484; 85025; 85027; 87086; 88305; 88313; 88341; 88342; 93005; 93010; 93306; 94640; 96372; 96374; 96375; 99285; A9500; J0171; J0696; J1610; J1650; J1940; J2250; J2270; J2310; J2405; J2930; J3010; J3475; J3490; J7040; J7620; Q9969